=== PATIENT | female | born 1935 | race Caucasian/White ===

== ENCOUNTER → 2017-07-05 | Outpatient (CLI) | payer MEDICARE ==
[~2017-07-05] MED LIST: AMLODIPINE BESYL5 MG PO; ANASTROZOLE1 MG PO; ASPIRIN EC81 MG PO; BIOTIN300 MCG; CARVEDILOL PO; CARVEDILOL12.5 MG PO; CATAPRES-TTS 21 EACH TOP; CENTRUM MULTIV1 EACH PO; CENTRUM SPECIA1 EACH; CICLOPIROX MC; CLOBETASOL PROP60 GM TP; CLONIDINE HCL0.1 MG PO; ECOTRIN325 MG; FISH OIL 1,2001 EACH; FLUTICASONE PRO30 GM TP; HUMALOG 75100 UNITS/ SQ; HUMALOG MI100 UNIT/2 SC; HYDRALAZINE HCL25 MG PO; ICAP PO; ICAPS MV TABLE1 EACH PO; ISOSORBIDE DINI20 MG PO; LEVOTHYROXINE75 MCG PO; LOVASTATIN40 MG PO; MACROBID 100 M100 MG PO; METHYLDOPA500 MG PO; PREMARIN CREAM; SPIRONOLACTONE PO; SPIRONOLACTONE25 MG PO; TERAZOSIN HCL1 M1 PO; VESICARE5 MG PO; VITAMIN C500 M1 PO; VITAMIN D1000 UNI1 PO; VITAMIN D1000 UNIT PO; VITAMIN D2000 UNIT; VITAMIN E400 UNI4 PO; VITAMIN E400 UNIT PO; Z.0.ACEBUTOLOL HCL20 PO; Z.0.CLONIDINE HCL0.1 PO; Z.0.DIGOXIN125 MCG PO; Z.0.ECOTRIN325 MG PO; Z.0.LOVASTATIN40 MG PO; Z.0.SPIRONOLACTONE25 PO; Z.0.SYNTHROID125 MCG PO; [UNRECOGNIZED DRUG - OTHER] PO; [UNRECOGNIZED DRUG - OTHER] PO; [UNRECOGNIZED DRUG - OTHER] PO
--- NOTE | 2017-07-05 17:20 | Diagnostic Imaging Report ---
EXAM: Renal Ultrasound INDICATION: \[id number] \S\1536 \S\CHRONIC KIDNEY DZ, STAGE 3 COMPARISON: CT dated 10/14/2016 TECHNIQUE: Transverse and longitudinal images of the kidneys and bladder were obtained. FINDINGS: Right Kidney: Size: 13 cm Echogenicity: Normal Parenchymal thickness: Normal Collecting system: No hydronephrosis Stones: None Cyst/Mass: 4.2 x 3.4 x 4.7 cm inferior pole cyst. Left Kidney: Size: 7.9 cm Echogenicity: Increased Parenchymal thickness: Decreased, measuring 0.8 cm. Collecting system: No hydronephrosis Stones: None Cyst/Mass: Mid/superior pole 1.3 x 1.2 x 1.2 cm cyst. Bladder: Not distended, limiting evaluation. IMPRESSION: 4.7 cm inferior pole right renal cyst. Otherwise right kidney is unremarkable. Atrophic left kidney. Signed by: Dr. Jonathan Salazar MD on 07/05/2017 5:16 PM
== END ==
LOC: US 14:43
PROVIDERS: ATTEND Internal Medicine
DX: N18.3 Chronic kidney disease, stage 3 (moderate) (principal)
CPT/HCPCS: 76770

== ENCOUNTER 2017-10-04 10:55 | Inpatient (IN) | payer MEDICARE ==
[~2017-10-04] VITALS: Ht 165.1 cm; Wt 78.1 kg
--- OUTSIDE RECORDS SUMMARY | 2017-10-04 10:59 | XMS REPORT ---
Author Author [facility] Address Unknown Phone Unavailable Care Team Providers Care Beeswax Bleacher Name Role Phone JUSTIN SOLOMON Unavailable Unavailable MITZY DUGGAN Unavailable Unavailable Problems This patient has no known problems. Allergies, Adverse Reactions, Alerts This patient has no known allergies or adverse reactions. Medications This patient has no known medications. Results Test Description Test Time Test Comments Text Results Atomic Results Result Comments US RENAL RETROPERITONEAL COMP [place] [address] Patient Name: JEFFERY AGUILAR MR #: [id number] : 1935 Age/Sex: 82/F Req #: [id number] Adm Physician: Ordered by: JUSTIN SOLOMON MD Report #: [id number] Location: US Room/Bed: Procedure: [id number] US/US RENAL RETROPERITONEAL COMP Exam Date: 07/05/17 Exam Time: 1536 REPORT STATUS: Signed EXAM: Renal Ultrasound INDICATION: COMPARISON: CT dated 10/14/2016 TECHNIQUE: Transverse and longitudinal images of the kidneys and bladder were obtained. FINDINGS: Right Kidney: Size: 13 cm Echogenicity: Normal Parenchymal thickness: Normal Collecting system: No hydronephrosis Stones: None Cyst/Mass: 4.2 x 3.4 x 4.7 cm inferior pole cyst. Left Kidney: Size: 7.9 cm Echogenicity: Increased Parenchymal thickness: Decreased, measuring 0.8 cm. Collecting system: No hydronephrosis Stones: None Cyst/Mass: Mid/superior pole 1.3 x 1.2 x 1.2 cm cyst. Bladder: Not distended, limiting evaluation. IMPRESSION: 4.7 cm inferior pole right renal cyst. Otherwise right kidney is unremarkable. Atrophic left kidney. Signed by: Dr. Jonathan Cifuentes MD on 07/05/2017 5:16 PM Dictated By: JONATHAN CIFUENTES MD 15 Transcribed By: MARITZA on 07/05/171715 COPY TO: JUSTIN SOLOMON MD US BREAST COMPLETE RIGHT [place] [address] Patient Name: JEFFERY AGUILAR MR #: [id number] : 1935 Age/Sex: 81/F Req #: [id number] [facility] Physician: Ordered by: MITZY DUGGAN MD Report #: [id number] Location: MAMMO Room/Bed: Procedure: [id number] US/US BREAST COMPLETE RIGHT Exam Date: 03/25/17 Exam Time: 1433 REPORT STATUS: Signed # [id number] - USBRECOMRT ULTRASOUND OF THE RIGHT BREAST : 03/25/2017 Comparison is made to exams dated: 02/09/2014 ultrasound biopsy - [facility], 10/23/2013 ultrasound - [facility] and 03/25/2017 mammogram - [facility]. Color flow and real-time ultrasound were performed on the entire right breast with scanning in all four quadrants, retroareolar region and the right axilla. There are multiple benign appearing cysts at the 2 o'clock position approximately 4 cm from the nipple. The largest is complex and measures 5 x 5 x 10 mm. An adjacent cyst with debris has a maximal measurement of 6 mm. Several smaller cysts are present. IMPRESSION: BENIGN There is no sonographic evidence of malignancy. A 1 year screening mammogram is recommended. Lily Dejesus Jr., D.O. cw/:03/25/2017 18:10:10 Refrigerator Tester: GIOVANNY ACHARYA RT, [facility] letter sent: Normal Exam Ultrasound BI-RADS: 2 Benign Dictated By: LILY DEJESUS DO 09 Transcribed By: LESLEY on 03/25/171809 COPY TO: MITZY DUGGAN MD MAMMOGRAPHY DIGITAL DX BILAT [place] [address] Patient Name: JEFFERY AGUILAR MR #: [id number] : 1935 Age/Sex: 81/F Req #: [id number] Adm Physician: Ordered by: MITZY DUGGAN MD Report #: [id number] Location: MAMMO Room/Bed: Procedure: [id number] MG/MAMMOGRAPHY DIGITAL DX BILAT Exam Date: Exam Time: 1344 REPORT STATUS: Signed #[id number] - [id number] #BILATERAL DIGITAL DIAGNOSTIC MAMMOGRAM WITH CAD: 05/2017 Comparison is made to exams dated: 11/08/2015 mammogram, 02/09/2014 mammogram, 02/09/2014 ultrasound biopsy - [facility], 10/23/2013 mammogram, 10/23/2013 ultrasound - [facility] and specimen - [facility]. Current study contains 6 films. The tissue of both breasts is predominantly fatty. Current study was also evaluated with a Computer Aided Detection (CAD) system. There are benign calcifications in both breasts. There also are benign lymph nodes in both breasts. Additionally there are post operative findings in the right breast. Vascular calcification in the left breast. No significant masses, calcifications, or other findings are seen in either breast. There has been no significant interval change. IMPRESSION: BENIGN There is no mammographic evidence of malignancy. A 1 year screening mammogram is recommended. The patient will be notified by letter of the results. Lily Dejesus Jr., D.O. cw/:03/25/2017 18:04:19 Refrigerator Tester: Yanique VILLALOBOS(R)(M), [facility] letter sent: Compared to Prior B9 Mammogram BI-RADS: 2 Benign Dictated By: LILY DEJESUS DO 03 COPY TO: MITZY DUGGAN MD
[2017-10-04] MEDS ORDERED: SODIUM CHLORIDE 0.9% 1000ML 1,000 ML IV STA (11:47)
[2017-10-04] MEDS ORDERED: METOCLOPRAMIDE HCL 10 MG/2ML VIAL IV ONE (12:00)
[2017-10-04 12:05] LABS: BASOPHILS # (AUTO) 0.1 (0.0-0.1); BASOPHILS % 0.3 % (0.0-1.0); HEMATOCRIT 42.6 % (34.2-44.1); HEMOGLOBIN 15.3 g/dL (12.0-16.0); LYMPHOCYTES # (AUTO) 3.3 (1.0-3.2); LYMPHOCYTES % 16.9 % (18.0-39.1); MEAN CORPUSCULAR HEMOGLOBIN 28.9 pg (28-32); MEAN CORPUSCULAR HGB CONC 35.9 g/dL (31-35); MEAN CORPUSCULAR VOLUME 80.4 fL (81-99); MONOCYTES % 5.1 % (4.4-11.3); NEUTROPHILS # (AUTO) 15.1 (2.1-6.9); NEUTROPHILS % 77.2 % (38.7-80.0); PLATELET COUNT 410 x10e3/uL (140-360); RED CELL DISTRIBUTION WIDTH 13.8 % (11.7-14.4)
[2017-10-04 12:17] LABS: INR 1.18; PROTHROMBIN TIME 14.1 seconds (11.9-14.5)
[2017-10-04 12:18] LABS: PARTIAL THROMBOPLASTIN TIME 28.1 seconds (23.8-35.5)
[2017-10-04] MEDS ORDERED: HYDROMORPHONE 1MG/1ML INJ IV STA (12:22)
[2017-10-04 12:25] LABS: ALANINE AMINOTRANSFERASE 11 IU/L (0-55); ALBUMIN 3.4 g/dL (3.5-5.0); ALBUMIN/GLOBULIN RATIO 0.9 (0.8-2.0); ALKALINE PHOSPHATASE 101 IU/L (40-150); ANION GAP 20.3 mmol/L (8-16); BLOOD UREA NITROGEN 15 mg/dL (7-26); BUN/CREATININE RATIO 17 (6-25); CALCIUM 9.5 mg/dL (8.4-10.2); CARBON DIOXIDE 21 mmol/L (22-29); CHLORIDE 95 mmol/L (98-107); CREATINE KINASE 30 IU/L (29-168); CREATININE, SERUM 0.88 mg/dL (0.57-1.11); EST GLOMERULAR FILTRATION RATE > 60 ML/MIN (60-); GLUCOSE 199 mg/dL (74-118); LIPASE 12 U/L (8-78); POTASSIUM 4.3 mmol/L (3.5-5.1); SODIUM 132 mmol/L (136-145)
[2017-10-04] MEDS ORDERED: HYDRALAZINE HCL 20 MG/ML VIAL IV STA ×2 (12:33→15:51)
[2017-10-04] MEDS ORDERED: SODIUM CHLORIDE 0.9% 50ML 50 ML ONE (13:26)
[2017-10-04] MEDS ORDERED: IOPAMIDOL 370 MG/ML 200 ML INFUS..BTL INJ ONE (13:27)
--- NOTE | 2017-10-04 13:31 | Diagnostic Imaging Report ---
PROCEDURE: CT ABDOMEN AND PELVIS WITH CONTRAST TECHNIQUE: The abdomen and pelvis were scanned utilizing a multidetector helical scanner from the diaphragm to the lesser trochanter after the IV administration of 100 cc Isovue-370. Coronal and sagittal multiplanar reformations were obtained. COMPARISON: CT abdomen and pelvis without contrast 10/14/2016. INDICATIONS: RIGHT LOWER QUADRANT ABDOMINAL PAIN FINDINGS: LOWER THORAX: Unchanged linear scar and reticulation in the lung bases right greater than left.. HEPATOBILIARY: Subcentimeter hypoattenuating foci in hepatic segments 2 and 7, too small to further characterize but likely represent small cysts. Small radiopaque stones versus sludge in the dependent portion of the gallbladder, unchanged. No gallbladder wall thickening or pericholecystic inflammation. SPLEEN: Subcentimeter hypoattenuating lesion in the upper pole of the spleen is unchanged and remains too small to further characterize but likely represents a small cyst. PANCREAS: No focal masses or ductal dilatation. ADRENALS: No adrenal nodules. KIDNEYS/URETERS: The left kidney is atrophic. 4.8 cm simple cyst projects exophytically from the right lower pole, unchanged. No additional renal mass lesion. No hydronephrosis. No calculus. PELVIC ORGANS/BLADDER: The urinary bladder is incompletely distended but otherwise unremarkable. Uterus is not identified and has presumably been removed. No adnexal mass. PERITONEUM / RETROPERITONEUM: No ascites. No pneumoperitoneum. LYMPH NODES: No pelvic sidewall, retroperitoneal, or mesenteric lymphadenopathy. VESSELS: Extensive atherosclerotic calcification of the abdominal aorta, branch vessel origins, and iliac arterial systems. No aneurysmal dilatation. Left and right renal artery stents. GI TRACT: The large bowel is largely collapsed and shows no evidence of distention or wall thickening. There are a few sigmoid diverticula without adjacent inflammatory change. The appendix is not identified and has presumably been removed. Small sliding hiatal hernia. No small bowel dilatation to suggest obstruction. BONES AND SOFT TISSUES: Postsurgical changes of the anterior abdominal wall. Dystrophic soft tissue calcification in the subcutaneous fat of the right flank. No destructive osseous lesions. Multilevel degenerative disc changes and degenerative facet arthropathy of the lumbar spine. IMPRESSION: No acute intra-abdominal or pelvic CT abnormalities. Cholelithiasis without CT findings of acute cholecystitis. Sigmoid diverticulosis without evidence of diverticulitis. Atrophic left kidney. Atherosclerotic vascular disease. Dictated by: Jesus Watson M.D. on 10/04/2017 at 13:31 Electronically approved by: Jesus Watson M.D. on 10/04/2017 at 13:31
[2017-10-04] MEDS ORDERED: SODIUM CHLORIDE 0.9% 1000ML 1,000 ML IV SCH (13:52)
[2017-10-04] MEDS ORDERED: DEXTROSE 50% SYRINGE 50 ML IV PRN (14:00)
[2017-10-04] MEDS ORDERED: FAMOTIDINE 20 MG TAB PO ONE (14:00)
[2017-10-04] MEDS ORDERED: CEFTRIAXONE SOD 1 GM VIAL IM ONE (14:00)
[2017-10-04 14:17] LABS: BILIRUBIN,URINE NEGATIVE (NEGATIVE); KETONES,URINE 2+ (NEGATIVE); LEUKOCYTE ESTERASE ,URINE TRACE (NEGATIVE); NITRITE,URINE NEGATIVE (NEGATIVE); PROTEIN,URINE DIPSTICK 3+ (NEGATIVE); URINE UROBILINOGEN 0.2 mg/dL (0.2 - 1)
[2017-10-04 14:21] LABS: CLARITY,URINE SL CLOUDY (CLEAR); COLOR,URINE YELLOW (YELLOW)
[2017-10-04 14:37] LABS: BACTERIA,URINE RARE /HPF; EPITHELIAL CELLS,URINE FEW /LPF; RBC,URINE 0-5 /HPF (0-5)
--- NOTE | 2017-10-04 15:10 | Diagnostic Imaging Report ---
PROCEDURE:US GALLBLADDER COMPARISON:CT 10/04/2017 INDICATIONS:ABDOMINAL PAIN FINDINGS: LIVER: Size:16.7 cm in the right midclavicular line, mildly enlarged Appearance:Normal echogenicity, smooth contour Mass:No focal masses. Probable subcentimeter cyst noted on CT are not visualized. GALLBLADDER: Stones/Sludge:Layering non-shadowing hyperechogenicity likely reflects sludge. Appearance:No wall thickening, pericholecystic fluid or hydrops. Sonographic Vasques's Sign:Negative BILE DUCTS: Intrahepatic Ducts:No dilation Extrahepatic Ducts:Common bile duct measures 0.2 cm, no dilatation. PANCREAS: Visualized portions of the neck and proximal body are normal. RIGHT KIDNEY: Size:11.7 cm in length Echogenicity:Normal Collecting System:No hydronephrosis Stone:None Cyst/Mass:Mid/inferior pole 3.3 x 3.9 x 4.9 cm simple cyst. . VESSELS: Aorta:Not visualized secondary to overlying bowel gas Inferior Vena Cava:Visualized portions are normal. Main Portal Vein:0.8 cm, normal size with hepatopetal flow. FREE FLUID: No ascites or pleural effusions. CONCLUSION: 1. Trace gallbladder sludge. No sonographic evidence of acute cholecystitis. 2. Right renal simple cyst. Dictated by: Demarco Huddleston M.D. on 10/04/2017 at 15:10 Electronically approved by: Demarco Huddleston M.D. on 10/04/2017 at 15:10
[2017-10-04] MEDS ORDERED: AMLODIPINE BESIL1 GM PO (15:33)
[2017-10-04] MEDS ORDERED: ASPIRIN81 MG (15:34)
[2017-10-04] MEDS ORDERED: HYDRALAZINE HCL 20 MG/ML VIAL ONE (15:50)
[2017-10-04] MEDS: CEFTRIAXONE SOD 1 GM VIAL IV SCH (16:17)
[2017-10-04] MEDS: INSULIN REGULAR, HUMAN 100 UNIT/1 ML 3ML VIAL SQ SCH ×3 (16:30→21:23)
[2017-10-04 17:00] VITALS: BP 228/89
[2017-10-04 17:28] VITALS: BP 228/89
[2017-10-04] MEDS: HYDRALAZINE HCL 20 MG/ML VIAL IV PRN (18:50)
[2017-10-04 20:35] VITALS: BP 191/79
[2017-10-04 21:05] LABS: CREATINE KINASE MB 1.4 ng/mL (0-5.0)
[2017-10-04 22:39] VITALS: BP 191/79
[2017-10-05] VITALS (10 sets, daily range): BP systolic 140–217; BP diastolic 60–84
[2017-10-05] MEDS: HYDRALAZINE HCL 20 MG/ML VIAL IV PRN ×2 (01:13→05:19)
[2017-10-05] MEDS: CEFTRIAXONE SOD 1 GM VIAL IV SCH ×2 (01:39→16:16)
[2017-10-05] MEDS: ACETAMINOPHEN 325 MG TAB PO PRN (06:36)
[2017-10-05] MEDS: INSULIN REGULAR, HUMAN 100 UNIT/1 ML 3ML VIAL SQ SCH ×4 (07:30→20:55)
[2017-10-05 08:04] LABS: BASOPHILS # (AUTO) 0.1 (0.0-0.1); BASOPHILS % 0.5 % (0.0-1.0); EOSINOPHILS % 0.1 % (0.0-6.0); HEMATOCRIT 37.1 % (34.2-44.1); HEMOGLOBIN 12.7 g/dL (12.0-16.0); LYMPHOCYTES # (AUTO) 2.9 (1.0-3.2); LYMPHOCYTES % 15.3 % (18.0-39.1); MEAN CORPUSCULAR HEMOGLOBIN 28.3 pg (28-32); MEAN CORPUSCULAR HGB CONC 34.2 g/dL (31-35); MEAN CORPUSCULAR VOLUME 82.6 fL (81-99); MONOCYTES # (AUTO) 1.3 (0.2-0.8); MONOCYTES % 7.2 % (4.4-11.3); NEUTROPHILS % 75.3 % (38.7-80.0); PLATELET COUNT 346 x10e3/uL (140-360); RED BLOOD COUNT 4.49 x10e6/uL (3.6-5.1); RED CELL DISTRIBUTION WIDTH 14.3 % (11.7-14.4)
[2017-10-05 08:20] LABS: ALANINE AMINOTRANSFERASE 8 IU/L (0-55); ALBUMIN 2.7 g/dL (3.5-5.0); ALKALINE PHOSPHATASE 89 IU/L (40-150); BLOOD UREA NITROGEN 16 mg/dL (7-26); BUN/CREATININE RATIO 19 (6-25); CALCIUM 8.5 mg/dL (8.4-10.2); CARBON DIOXIDE 23 mmol/L (22-29); CHLORIDE 96 mmol/L (98-107); CREATININE, SERUM 0.85 mg/dL (0.57-1.11); EST GLOMERULAR FILTRATION RATE > 60 ML/MIN (60-); GLUCOSE 166 mg/dL (74-118); LIPASE 18 U/L (8-78); SODIUM 130 mmol/L (136-145)
[2017-10-05 08:56] LABS: CREATINE KINASE MB 1.4 ng/mL (0-5.0)
[2017-10-05] MEDS ORDERED: CARVEDILOL 12.5 MG TAB PO SCH (09:00)
[2017-10-05] MEDS ORDERED: SPIRONOLACTONE 25 MG TAB PO SCH (09:00)
[2017-10-05 09:08] LABS: ANION GAP 14.2 mmol/L (8-16); POTASSIUM 3.2 mmol/L (3.5-5.1)
[2017-10-05] MEDS ORDERED: CLONIDINE HCL 0.2 MG/24 HR 1 EA PATCH TOP ONE (09:30)
[2017-10-05] MEDS: HYDRALAZINE HCL 25 MG TAB PO SCH ×3 (09:37→21:00)
[2017-10-05] MEDS: SPIRONOLACTONE 25 MG TAB PO SCH (09:37)
[2017-10-05] MEDS: ASPIRIN 81 MG CHEW TAB PO SCH (09:38)
[2017-10-05] MEDS: AMLODIPINE BESYLATE 10 MG TAB PO SCH (09:38)
[2017-10-05] MEDS: CLONIDINE HCL 0.1 MG TAB PO SCH ×3 (09:38→21:00)
[2017-10-05] MEDS: ISOSORBIDE DINITRATE 20 MG TAB PO SCH ×2 (09:38→18:29)
[2017-10-05] MEDS: NEBIVOLOL 10 MG TAB PO SCH (09:38)
[2017-10-05] MEDS: LEVOTHYROXINE SODIUM 125 MCG TAB PO SCH (09:39)
[2017-10-05] MEDS: CHOLECALCIFEROL 1,000 UNIT TAB PO SCH (09:39)
[2017-10-05] MEDS: VANCOMYCIN 1GM/NS 250 ML 250 ML IV SCH ×2 (10:32→22:37)
[2017-10-05] MEDS: VITAMIN E 400 UNIT CAP PO SCH (10:47)
[2017-10-05] MEDS: ANASTROZOLE 1 MG TAB PO SCH (10:48)
[2017-10-05] MEDS ORDERED: POTASSIUM CHLORIDE 20 MEQ TAB CR PO ONE (12:00)
[2017-10-05] MEDS: CARVEDILOL 12.5 MG TAB PO SCH ×2 (12:19→18:29)
[2017-10-05] MEDS: ONDANSETRON HCL INJ 2 MG/ML VIAL IV PRN (20:55)
[2017-10-05] MEDS: SIMVASTATIN 20 MG TAB PO SCH (21:00)
[2017-10-05] MEDS: HYDROMORPHONE 1MG/1ML INJ IV PRN (22:36)
[2017-10-06] VITALS (7 sets, daily range): BP systolic 149–208; BP diastolic 65–84
[2017-10-06] MEDS: CEFTRIAXONE SOD 1 GM VIAL IV SCH ×2 (02:50→14:37)
[2017-10-06] MEDS: LEVOTHYROXINE SODIUM 125 MCG TAB PO SCH (05:18)
[2017-10-06] MEDS: INSULIN REGULAR, HUMAN 100 UNIT/1 ML 3ML VIAL SQ SCH ×4 (07:30→20:54)
[2017-10-06] MEDS: CARVEDILOL 12.5 MG TAB PO SCH ×3 (08:00→17:07)
[2017-10-06] MEDS: SPIRONOLACTONE 25 MG TAB PO SCH (09:19)
[2017-10-06] MEDS: HYDRALAZINE HCL 25 MG TAB PO SCH ×3 (09:19→20:53)
[2017-10-06] MEDS: NEBIVOLOL 10 MG TAB PO SCH (09:19)
[2017-10-06] MEDS: ASPIRIN 81 MG CHEW TAB PO SCH (09:19)
[2017-10-06] MEDS: ANASTROZOLE 1 MG TAB PO SCH (09:19)
[2017-10-06] MEDS: CHOLECALCIFEROL 1,000 UNIT TAB PO SCH (09:20)
[2017-10-06] MEDS: VITAMIN E 400 UNIT CAP PO SCH (09:20)
[2017-10-06] MEDS: AMLODIPINE BESYLATE 10 MG TAB PO SCH (09:20)
[2017-10-06] MEDS: ISOSORBIDE DINITRATE 20 MG TAB PO SCH ×2 (09:20→17:07)
[2017-10-06] MEDS: VANCOMYCIN 1GM/NS 250 ML 250 ML IV SCH ×2 (10:23→20:53)
[2017-10-06] MEDS: SIMVASTATIN 20 MG TAB PO SCH (20:53)
[2017-10-06] MEDS: ONDANSETRON HCL INJ 2 MG/ML VIAL IV PRN (21:07)
[2017-10-06] MEDS: HYDROMORPHONE 1MG/1ML INJ IV PRN (21:07)
[2017-10-07] VITALS (7 sets, daily range): BP systolic 161–184; BP diastolic 67–77
[2017-10-07] MEDS: CEFTRIAXONE SOD 1 GM VIAL IV SCH ×2 (02:33→13:52)
[2017-10-07] MEDS: LEVOTHYROXINE SODIUM 125 MCG TAB PO SCH (06:00)
[2017-10-07] MEDS: INSULIN REGULAR, HUMAN 100 UNIT/1 ML 3ML VIAL SQ SCH ×4 (07:30→21:36)
[2017-10-07 07:52] LABS: BASOPHILS # (AUTO) 0.1 (0.0-0.1); BASOPHILS % 0.4 % (0.0-1.0); EOSINOPHILS # (AUTO) 0.1 (0.0-0.4); EOSINOPHILS % 0.5 % (0.0-6.0); HEMATOCRIT 34.8 % (34.2-44.1); HEMOGLOBIN 11.8 g/dL (12.0-16.0); LYMPHOCYTES # (AUTO) 1.9 (1.0-3.2); LYMPHOCYTES % 12.2 % (18.0-39.1); MEAN CORPUSCULAR HEMOGLOBIN 28.7 pg (28-32); MEAN CORPUSCULAR HGB CONC 33.9 g/dL (31-35); MEAN CORPUSCULAR VOLUME 84.7 fL (81-99); MONOCYTES # (AUTO) 0.8 (0.2-0.8); MONOCYTES % 5.3 % (4.4-11.3); NEUTROPHILS # (AUTO) 12.5 (2.1-6.9); NEUTROPHILS % 80.3 % (38.7-80.0); PLATELET COUNT 306 x10e3/uL (140-360); RED BLOOD COUNT 4.11 x10e6/uL (3.6-5.1)
[2017-10-07 08:28] LABS: ALANINE AMINOTRANSFERASE 7 IU/L (0-55); ALBUMIN 2.3 g/dL (3.5-5.0); ALBUMIN/GLOBULIN RATIO 0.9 (0.8-2.0); ALKALINE PHOSPHATASE 84 IU/L (40-150); ANION GAP 13.1 mmol/L (8-16); BLOOD UREA NITROGEN 13 mg/dL (7-26); BUN/CREATININE RATIO 15 (6-25); CALCIUM 8.3 mg/dL (8.4-10.2); CARBON DIOXIDE 21 mmol/L (22-29); CHLORIDE 99 mmol/L (98-107); CREATININE, SERUM 0.86 mg/dL (0.57-1.11); EST GLOMERULAR FILTRATION RATE > 60 ML/MIN (60-); GLUCOSE 223 mg/dL (74-118); POTASSIUM 4.1 mmol/L (3.5-5.1); SODIUM 129 mmol/L (136-145)
[2017-10-07] MEDS: CARVEDILOL 12.5 MG TAB PO SCH ×3 (08:53→18:00)
[2017-10-07] MEDS: NEBIVOLOL 10 MG TAB PO SCH (08:54)
[2017-10-07] MEDS: HYDRALAZINE HCL 25 MG TAB PO SCH ×3 (08:54→21:32)
[2017-10-07] MEDS: PANTOPRAZOLE 40 MG 10ML VIAL IV SCH ×2 (08:54→18:00)
[2017-10-07] MEDS: ISOSORBIDE DINITRATE 20 MG TAB PO SCH ×2 (08:54→18:01)
[2017-10-07] MEDS: ANASTROZOLE 1 MG TAB PO SCH (08:54)
[2017-10-07] MEDS: SPIRONOLACTONE 25 MG TAB PO SCH (08:54)
[2017-10-07] MEDS: AMLODIPINE BESYLATE 10 MG TAB PO SCH (08:55)
[2017-10-07] MEDS: VANCOMYCIN 1GM/NS 250 ML 250 ML IV SCH ×2 (08:55→21:32)
[2017-10-07] MEDS: ONDANSETRON HCL INJ 2 MG/ML VIAL IV PRN ×2 (09:00→13:52)
[2017-10-07] MEDS: VITAMIN E 400 UNIT CAP PO SCH (12:41)
[2017-10-07] MEDS: CHOLECALCIFEROL 1,000 UNIT TAB PO SCH (12:41)
[2017-10-07] MEDS ORDERED: BELLADONNA/OPIUM 60 MG SUPP PR ONE ×2 (14:52→15:35)
[2017-10-07] MEDS ORDERED: IOPAMIDOL 610MG/1ML 300 MG/ML VIAL IV ONE (14:52)
[2017-10-07] MEDS ORDERED: BACITRACIN ZINC 15 GM OINT ONE (15:18)
[2017-10-07] MEDS ORDERED: MUPIROCIN 2% OINT 22 GM TUBE ONE (15:18)
[2017-10-07] MEDS: ASPIRIN 81 MG CHEW TAB PO SCH (17:59)
[2017-10-07] MEDS ORDERED: FENTANYL CITRATE/PF 100MCG/2 ML INJ ONE (18:25)
[2017-10-07] MEDS ORDERED: SEVOFLURANE INHAL SOLN 250 ML PEN BTL ONE (18:30)
[2017-10-07] MEDS ORDERED: PROPOFOL IV EMULSION 10 MG/ML 20 ML VIAL ONE (18:30)
[2017-10-07] MEDS ORDERED: DEXAMETHASONE SOD PHOS INJ 4 MG/ML VIAL ONE (18:30)
[2017-10-07] MEDS ORDERED: LIDOCAINE HCL 2% LOCAL INJ 5 ML SDV VIAL INJ ONE (18:30)
[2017-10-07] MEDS ORDERED: ONDANSETRON HCL INJ 2 MG/ML VIAL ONE (18:30)
[2017-10-07] MEDS: SIMVASTATIN 20 MG TAB PO SCH (21:32)
--- NOTE | 2017-10-07 23:59 | Consultation ---
DATE OF CONSULTATION: October 07, 2017 Ms. Green is an 82-year-old, who presented to the hospital because of abdominal pain. According to her, it is mostly in the right lower quadrant area and patient, apparently, was having some nausea, vomiting, diarrhea. She was found to have UTI. The nausea, vomiting, and diarrhea are better. She also had leukocytosis. She had a CAT scan of the abdomen and pelvis and it showed diverticulosis without diverticulitis, also evidence of gallstones and she also had an ultrasound showed the gallbladder, which only shows trace sludge and simple renal cyst. Her other medical problems reveals history of hypertension, history of hypothyroidism, history of hypercholesterolemia. ALLERGIES: NONE. SOCIAL HISTORY: No alcohol use. FAMILY HISTORY: Noncontributory. REVIEW OF SYSTEMS: At this point, she denies any chest pain. No shortness of breath. Denies any dysphagia, odynophagia. Denies any dysuria, hematuria or any kind of syncopal episode. EXAM GENERAL: Patient is awake, alert, appears to be stable, not in any acute distress at this point. VITAL SIGNS: Afebrile currently. HEAD, EYES, EARS, NOSE, THROAT: Normocephalic, atraumatic. Sclerae anicteric. NECK: Supple. HEART: Sounds regular. LUNGS: Clear. ABDOMEN: Soft. There is mild right lower quadrant tenderness. No rebound, no masses. EXTREMITIES: No edema or clubbing. LABORATORY VALUES: As of today, WBC of 15.6, hemoglobin 11.8. BUN of 13, creatinine 0.86. Liver enzymes normal. IMPRESSIONS 1. Abdominal pain, nausea, vomiting, diarrhea. She is better. 2. Urinary tract infection. 3. Gallstones. I think this is incidental finding. RECOMMENDATIONS: Continue antibiotic at this point. Follow labs clinically. Patient will probably need to have colonoscopy as an outpatient unless if symptoms persists. Job#: [id number] CQ cc:JUSTIN SOLOMON MD
[2017-10-08] VITALS: BP 166/67
[2017-10-08] MEDS: ACETAMINOPHEN 325 MG TAB PO PRN (00:25)
[2017-10-08] MEDS: HYDRALAZINE HCL 20 MG/ML VIAL IV PRN (00:30)
[2017-10-08] MEDS: CEFTRIAXONE SOD 1 GM VIAL IV SCH ×2 (02:43→13:24)
[2017-10-08 04:00] VITALS: BP 143/60
[2017-10-08] MEDS: LEVOTHYROXINE SODIUM 125 MCG TAB PO SCH (06:01)
[2017-10-08 07:36] LABS: BASOPHILS % 0.2 % (0.0-1.0); HEMATOCRIT 36.2 % (34.2-44.1); HEMOGLOBIN 11.9 g/dL (12.0-16.0); LYMPHOCYTES % 7.4 % (18.0-39.1); MEAN CORPUSCULAR HEMOGLOBIN 28.8 pg (28-32); MEAN CORPUSCULAR HGB CONC 32.9 g/dL (31-35); MEAN CORPUSCULAR VOLUME 87.7 fL (81-99); MONOCYTES # (AUTO) 0.2 (0.2-0.8); MONOCYTES % 1.3 % (4.4-11.3); NEUTROPHILS # (AUTO) 11.6 (2.1-6.9); NEUTROPHILS % 89.5 % (38.7-80.0); PLATELET COUNT 303 x10e3/uL (140-360); RED BLOOD COUNT 4.13 x10e6/uL (3.6-5.1)
[2017-10-08 07:58] LABS: ANION GAP 15.6 mmol/L (8-16); CALCIUM 8.4 mg/dL (8.4-10.2); CREATININE, SERUM 0.99 mg/dL (0.57-1.11); POTASSIUM 4.6 mmol/L (3.5-5.1)
[2017-10-08 08:00] VITALS: BP 181/72
[2017-10-08] MEDS: PANTOPRAZOLE 40 MG 10ML VIAL IV SCH ×2 (08:13→18:08)
[2017-10-08] MEDS: CARVEDILOL 12.5 MG TAB PO SCH ×3 (08:13→18:08)
[2017-10-08] MEDS: SPIRONOLACTONE 25 MG TAB PO SCH (08:13)
[2017-10-08] MEDS: ANASTROZOLE 1 MG TAB PO SCH (08:14)
[2017-10-08] MEDS: CHOLECALCIFEROL 1,000 UNIT TAB PO SCH (08:14)
[2017-10-08] MEDS: ISOSORBIDE DINITRATE 20 MG TAB PO SCH ×2 (08:14→18:08)
[2017-10-08] MEDS: ASPIRIN 81 MG CHEW TAB PO SCH (08:14)
[2017-10-08] MEDS: HYDRALAZINE HCL 25 MG TAB PO SCH ×3 (08:14→22:13)
[2017-10-08] MEDS: NEBIVOLOL 10 MG TAB PO SCH (08:14)
[2017-10-08] MEDS: VITAMIN E 400 UNIT CAP PO SCH (08:14)
[2017-10-08] MEDS: AMLODIPINE BESYLATE 10 MG TAB PO SCH (08:14)
[2017-10-08] MEDS: INSULIN REGULAR, HUMAN 100 UNIT/1 ML 3ML VIAL SQ SCH ×4 (08:15→21:00)
[2017-10-08] MEDS: VANCOMYCIN 1GM/NS 250 ML 250 ML IV SCH ×2 (09:27→09:39)
[2017-10-08 12:00] VITALS: BP 166/67
[2017-10-08 16:00] VITALS: BP 174/71
[2017-10-08] MEDS: NEOMYCIN/POLYMYXIN/BACITRACIN 15 GM TUBE TOP SCH (18:08)
[2017-10-08 20:00] VITALS: BP 134/69
[2017-10-08] MEDS: SIMVASTATIN 20 MG TAB PO SCH (22:13)
[2017-10-08] MEDS: DEXTROSE 5%/0.45% SOD CHL 1,000 ML IV SCH (22:50)
[2017-10-09] VITALS (10 sets, daily range): BP systolic 127–202; BP diastolic 59–89
[2017-10-09] MEDS: CEFTRIAXONE SOD 1 GM VIAL IV SCH ×2 (02:03→14:48)
[2017-10-09] MEDS: HYDRALAZINE HCL 20 MG/ML VIAL IV PRN (04:09)
[2017-10-09] MEDS: LEVOTHYROXINE SODIUM 125 MCG TAB PO SCH (05:19)
[2017-10-09 07:12] LABS: BASOPHILS % 0.3 % (0.0-1.0); EOSINOPHILS % 0.1 % (0.0-6.0); HEMATOCRIT 33.7 % (34.2-44.1); LYMPHOCYTES # (AUTO) 1.5 (1.0-3.2); LYMPHOCYTES % 10.5 % (18.0-39.1); MEAN CORPUSCULAR HEMOGLOBIN 29.3 pg (28-32); MEAN CORPUSCULAR HGB CONC 35.6 g/dL (31-35); MEAN CORPUSCULAR VOLUME 82.4 fL (81-99); MONOCYTES # (AUTO) 0.8 (0.2-0.8); MONOCYTES % 5.9 % (4.4-11.3); NEUTROPHILS # (AUTO) 11.2 (2.1-6.9); PLATELET COUNT 322 x10e3/uL (140-360); RED BLOOD COUNT 4.09 x10e6/uL (3.6-5.1); RED CELL DISTRIBUTION WIDTH 13.9 % (11.7-14.4)
[2017-10-09] MEDS: INSULIN REGULAR, HUMAN 100 UNIT/1 ML 3ML VIAL SQ SCH ×4 (07:30→21:00)
[2017-10-09 07:37] LABS: ANION GAP 10.9 mmol/L (8-16); CALCIUM 8.1 mg/dL (8.4-10.2); CREATININE, SERUM 1.17 mg/dL (0.57-1.11); POTASSIUM 3.9 mmol/L (3.5-5.1); VANCOMYCIN,RANDOM 15.6 ug/mL
[2017-10-09] MEDS ORDERED: ONDANSETRON HCL INJ 2 MG/ML VIAL ONE (09:29)
[2017-10-09] MEDS: VANCOMYCIN 1GM/NS 250 ML 250 ML IV SCH ×2 (09:30→21:30)
[2017-10-09] MEDS: PANTOPRAZOLE 40 MG 10ML VIAL IV SCH ×2 (10:30→17:49)
[2017-10-09] MEDS: CARVEDILOL 12.5 MG TAB PO SCH ×3 (10:30→17:49)
[2017-10-09] MEDS: SPIRONOLACTONE 25 MG TAB PO SCH (10:30)
[2017-10-09] MEDS: NEBIVOLOL 10 MG TAB PO SCH (10:30)
[2017-10-09] MEDS: ANASTROZOLE 1 MG TAB PO SCH (10:30)
[2017-10-09] MEDS: HYDRALAZINE HCL 25 MG TAB PO SCH ×3 (10:30→21:00)
[2017-10-09] MEDS: ASPIRIN 81 MG CHEW TAB PO SCH (10:30)
[2017-10-09] MEDS: AMLODIPINE BESYLATE 10 MG TAB PO SCH (10:31)
[2017-10-09] MEDS: ISOSORBIDE DINITRATE 20 MG TAB PO SCH ×2 (10:31→17:49)
[2017-10-09] MEDS: CHOLECALCIFEROL 1,000 UNIT TAB PO SCH (10:37)
[2017-10-09] MEDS: VITAMIN E 400 UNIT CAP PO SCH (10:37)
[2017-10-09] MEDS: NEOMYCIN/POLYMYXIN/BACITRACIN 15 GM TUBE TOP SCH ×2 (10:37→17:03)
[2017-10-09 10:50] LABS: ANISOCYTOSIS SLIGHT; ELLIPTOCYTE, RBC MODERATE; HYPOCHROMASIA SLIGHT; LYMPHOCYTES % (MANUAL) 14 % (19-48); MONOCYTES % (MANUAL) 5 % (3.4-9.0); NEUTROPHILS % (MANUAL) 80 % (40-74); PLATELET ESTIMATE ADEQUATE; PLATELET MORPHOLOGY COMMENT NORMAL; POIKILOCYTOSIS SLIGHT; RBC MORPHOLOGY COMMENT NORMAL
[2017-10-09] MEDS: SUCRALFATE 1 GM TAB PO SCH ×3 (11:30→21:00)
[2017-10-09] MEDS: DEXTROSE 5%/0.45% SOD CHL 1,000 ML IV SCH (16:15)
[2017-10-09] MEDS ORDERED: MIDAZOLAM HCL 2 MG/2 ML VIAL ONE (17:53)
[2017-10-09] MEDS ORDERED: FENTANYL CITRATE/PF 100MCG/2 ML INJ ONE (17:53)
[2017-10-09] MEDS: SIMVASTATIN 40 MG TAB PO SCH (21:00)
[2017-10-10] VITALS (7 sets, daily range): BP systolic 119–175; BP diastolic 58–73
[2017-10-10] MEDS: CEFTRIAXONE SOD 1 GM VIAL IV SCH ×2 (02:30→14:39)
[2017-10-10] MEDS: PANTOPRAZOLE 40 MG 10ML VIAL IV SCH ×2 (04:08→17:28)
[2017-10-10] MEDS: LEVOTHYROXINE SODIUM 125 MCG TAB PO SCH (05:32)
[2017-10-10] MEDS: INSULIN REGULAR, HUMAN 100 UNIT/1 ML 3ML VIAL SQ SCH ×4 (07:30→20:25)
[2017-10-10] MEDS: SUCRALFATE 1 GM TAB PO SCH ×4 (07:45→20:24)
[2017-10-10] MEDS: CARVEDILOL 12.5 MG TAB PO SCH ×3 (08:48→17:28)
[2017-10-10] MEDS: HYDRALAZINE HCL 25 MG TAB PO SCH ×3 (09:18→20:24)
[2017-10-10] MEDS: ISOSORBIDE DINITRATE 20 MG TAB PO SCH ×2 (09:18→17:28)
[2017-10-10] MEDS: AMLODIPINE BESYLATE 10 MG TAB PO SCH (09:18)
[2017-10-10] MEDS: NEBIVOLOL 10 MG TAB PO SCH (09:18)
[2017-10-10] MEDS: ANASTROZOLE 1 MG TAB PO SCH (09:18)
[2017-10-10] MEDS: ASPIRIN 81 MG CHEW TAB PO SCH (09:18)
[2017-10-10] MEDS: CHOLECALCIFEROL 1,000 UNIT TAB PO SCH (09:18)
[2017-10-10] MEDS: SPIRONOLACTONE 25 MG TAB PO SCH (09:18)
[2017-10-10] MEDS: NEOMYCIN/POLYMYXIN/BACITRACIN 15 GM TUBE TOP SCH ×2 (09:19→17:29)
[2017-10-10] MEDS: VITAMIN E 400 UNIT CAP PO SCH (09:19)
[2017-10-10] MEDS: VANCOMYCIN 1GM/NS 250 ML 250 ML IV SCH ×2 (11:55→20:56)
[2017-10-10] MEDS: ACETAMINOPHEN 325 MG TAB PO PRN ×2 (14:46→20:56)
[2017-10-10] MEDS ORDERED: MORPHINE SULFATE 2 MG/ML SYR IV PRN (20:00)
[2017-10-10] MEDS: SIMVASTATIN 40 MG TAB PO SCH (20:24)
[2017-10-11] VITALS: BP 148/65
[2017-10-11] MEDS: CEFTRIAXONE SOD 1 GM VIAL IV SCH (01:59)
[2017-10-11 04:00] VITALS: BP 132/60
[2017-10-11] MEDS: ACETAMINOPHEN 325 MG TAB PO PRN (05:36)
[2017-10-11] MEDS: LEVOTHYROXINE SODIUM 125 MCG TAB PO SCH (05:36)
[2017-10-11] MEDS: INSULIN REGULAR, HUMAN 100 UNIT/1 ML 3ML VIAL SQ SCH (07:35)
[2017-10-11] MEDS: SUCRALFATE 1 GM TAB PO SCH (07:50)
[2017-10-11] MEDS: CARVEDILOL 12.5 MG TAB PO SCH (08:00)
[2017-10-11] MEDS: PANTOPRAZOLE 40 MG 10ML VIAL IV SCH (08:20)
[2017-10-11] MEDS: AMLODIPINE BESYLATE 10 MG TAB PO SCH (08:22)
[2017-10-11] MEDS: CHOLECALCIFEROL 1,000 UNIT TAB PO SCH (08:22)
[2017-10-11] MEDS: NEBIVOLOL 10 MG TAB PO SCH (08:22)
[2017-10-11] MEDS: ANASTROZOLE 1 MG TAB PO SCH (08:22)
[2017-10-11] MEDS: ISOSORBIDE DINITRATE 20 MG TAB PO SCH (08:22)
[2017-10-11] MEDS: HYDRALAZINE HCL 25 MG TAB PO SCH (08:22)
[2017-10-11] MEDS: VITAMIN E 400 UNIT CAP PO SCH (08:22)
[2017-10-11] MEDS: SPIRONOLACTONE 25 MG TAB PO SCH (08:22)
[2017-10-11] MEDS: ASPIRIN 81 MG CHEW TAB PO SCH (08:22)
[2017-10-11] MEDS: NEOMYCIN/POLYMYXIN/BACITRACIN 15 GM TUBE TOP SCH (08:23)
[2017-10-11 08:39] VITALS: BP 147/60
[2017-10-11] MEDS ORDERED: PANTOPRAZOLE SO40 MG PO (11:12)
[2017-10-11] MEDS ORDERED: CARAFATE1 GM/10 ML PO (11:13)
--- NOTE | 2017-11-14 02:09 | Operative Report ---
DATE OF PROCEDURE: October 07, 2017 PREOPERATIVE DIAGNOSES 1. Labial fusion. 2. Urinary tract infections. 3. Left renal atrophy. 4. Mixed-type urinary incontinence. POSTOPERATIVE DIAGNOSES 1. Labial fusion. 2. Urinary tract infections. 3. Left renal atrophy. 4. Mixed-type urinary incontinence. 5. Severely atrophic (senile) vaginitis. OPERATIONS PERFORMED 1. Lysis of severe labial fusion (separate procedure performed for the labial fusion). 2. Cystourethroscopy with bilateral ureteral catheterization and retrograde ureteropyelography (separate procedure performed for the urinary tract infections and atrophic left kidney). 3. Interpretation of retrograde ureteropyelography. 4. Pelvic examination under anesthesia. ANESTHESIA: General. COMPLICATIONS: None. CLINICAL SUMMARY: Yunior Green is an 82-year-old woman with the above preoperative diagnoses. She is brought for the above procedures. She is aware of the risks of bleeding, infection, injury to adjacent structures, need for additional procedures, and elected to proceed. OPERATIVE PROCEDURE IN DETAIL: Informed consent was verified. Yunior Green was properly identified, taken to the operating room, placed on the cystoscopy table in supine position. Anesthesia was uneventfully begun. The patient was then carefully and gently re-positioned in the dorsal lithotomy position with all pressure points well padded. Her genitalia were examined. The patient had severe labial fusion. The urethral meatus could not be visualized. There was a very tiny hole through which urine drips out. We carefully teased apart the adhesed vagina. We teased it apart utilizing both fingers as well as an instrument and this was eventually accomplished. Only minimal amount of bleeding was encountered. Pressure was held in place until the bleeding stopped. The patient then had a more thorough vaginal prep and she was draped in the usual sterile fashion. The 22.5-Montenegrin cystoscope sheath with the obturator in place was atraumatically inserted in patient's urethra and the bladder was drained. Panendoscopy of the urinary bladder revealed no suspicious mucosal lesions. No tumors, no stones, and no diverticula. Mild trabeculations were noted. Normally positioned and configured ureteral orifices were identified. An 8-Montenegrin catheter was used to cannulate each ureter and retrograde ureteropyelograms were performed. Interpretation of retrograde ureteropyelography: Contrast was instilled in retrograde fashion bilaterally. The left kidney was small. The right kidney was seen normal size. Both kidneys exhibited no hydronephrosis and no evidence of obstruction. Delicate calices were present throughout. The patient's bladder was drained. Cystoscope was withdrawn. Pelvic examination under anesthesia revealed severely atrophic vaginitis. No abnormal palpable pelvic masses could be appreciated. There was no evidence of continued bleeding from the lysis of the labial fusion. The patient was then uneventfully reversed from anesthesia and taken to the recovery room in stable condition. There were no complications of the procedure. She tolerated the procedure well. Plans will be to follow the patient up on a long-term basis. Job#: [id number] CF cc:JUSTIN SOLOMON MD
== END 2017-10-11 11:45 | disposition home or self-care (01) | DRG 854 ==
LOC: ER 10:55 → ERHOLD 14:24 → MED/SURG3 16:33
PROVIDERS: ADMIT Internal Medicine; ATTEND Internal Medicine
PROC: 0UN Female Reproductive System, Release (ICD-10-PCS; 2017-10-07)
PROC: 0T9B8ZZ Drainage of Bladder, Via Natural or Artificial Opening Endoscopic (ICD-10-PCS; 2017-10-07)
PROC: BT0B1ZZ Plain Radiography of Bladder and Urethra using Low Osmolar Contrast (ICD-10-PCS; 2017-10-07)
PROC: 0DB38ZX Excision of Lower Esophagus, Via Natural or Artificial Opening Endoscopic, Diagnostic (ICD-10-PCS; 2017-10-09)
PROC: 0DB68ZX Excision of Stomach, Via Natural or Artificial Opening Endoscopic, Diagnostic (ICD-10-PCS; principal; 2017-10-09 10:30)
DX: A41.9 Sepsis, unspecified organism (principal); N39.0 Urinary tract infection, site not specified; K25.3 Acute gastric ulcer without hemorrhage or perforation; N28.1 Cyst of kidney, acquired; I10 Essential (primary) hypertension; K80.80 Other cholelithiasis without obstruction; K57.90 Diverticulosis of intestine, part unspecified, without perforation or abscess without bleeding; E03.9 Hypothyroidism, unspecified; K21.0 Gastro-esophageal reflux disease with esophagitis; K44.9 Diaphragmatic hernia without obstruction or gangrene; R35.1 Nocturia; R32 Unspecified urinary incontinence; N95.2 Postmenopausal atrophic vaginitis; Z88.1 Allergy status to other antibiotic agents; Z88.0 Allergy status to penicillin; Z88.8 Allergy status to other drugs, medicaments and biological substances; Q52.5 Fusion of labia
CPT/HCPCS: 36415; 43239; 51700; 74177; 74420; 76705; 80048; 80053; 80202; 81001; 82550; 82553; 82948; 83605; 83690; 83735; 83880; 84484; 85025; 85610; 85730; 87040; 87071; 87086; 87205; 88305; 88312; 93005; 96361; 96367; 96372; 96376; 99284; J0360; J0696; J1100; J1170; J2001; J2250; J2405; J2765; J3370; J7030; Q9967

== ENCOUNTER → 2017-12-25 | Day surgery (SDC) | payer MEDICARE ==
[2017-12-20 10:33] LABS: BASOPHILS # (AUTO) 0.1 (0.0-0.1); BASOPHILS % 0.5 % (0.0-1.0); EOSINOPHILS # (AUTO) 0.1 (0.0-0.4); EOSINOPHILS % 0.4 % (0.0-6.0); HEMATOCRIT 43.6 % (34.2-44.1); HEMOGLOBIN 14.6 g/dL (12.0-16.0); LYMPHOCYTES # (AUTO) 3.7 (1.0-3.2); LYMPHOCYTES % 31.5 % (18.0-39.1); MEAN CORPUSCULAR HEMOGLOBIN 27.9 pg (28-32); MEAN CORPUSCULAR HGB CONC 33.5 g/dL (31-35); MEAN CORPUSCULAR VOLUME 83.2 fL (81-99); MONOCYTES # (AUTO) 0.8 (0.2-0.8); MONOCYTES % 6.9 % (4.4-11.3); NEUTROPHILS # (AUTO) 7.1 (2.1-6.9); NEUTROPHILS % 60.4 % (38.7-80.0); PLATELET COUNT 313 x10e3/uL (140-360); RED BLOOD COUNT 5.24 x10e6/uL (3.6-5.1); RED CELL DISTRIBUTION WIDTH 14.2 % (11.7-14.4)
[~2017-12-25] MED LIST changes: +AMLODIPINE BESIL1 GM PO; +ASPIRIN81 MG PO; +BIOTIN2500 MCG PO; +CARAFATE1 GM/10 ML PO; +FENTANYL CITRATE/PF 100MCG/2 ML INJ ONE; +MIDAZOLAM HCL 2 MG/2 ML VIAL ONE; +OXYBUTYNIN CHLOR5 MG PO; +PANTOPRAZOLE SO40 MG PO; +PROPOFOL IV EMULSION 10 MG/ML 20 ML VIAL ONE
== END | disposition home or self-care (01) ==
LOC: OR 09:18
PROVIDERS: ATTEND Internal Medicine Gastroenterology
DX: K22.10 Ulcer of esophagus without bleeding (principal); K29.50 Unspecified chronic gastritis without bleeding; K21.0 Gastro-esophageal reflux disease with esophagitis; K25.9 Gastric ulcer, unspecified as acute or chronic, without hemorrhage or perforation; K44.9 Diaphragmatic hernia without obstruction or gangrene; E66.3 Overweight; E11.9 Type 2 diabetes mellitus without complications; E03.9 Hypothyroidism, unspecified; I25.810 Atherosclerosis of coronary artery bypass graft(s) without angina pectoris; I11.0 Hypertensive heart disease with heart failure; I50.9 Heart failure, unspecified; Z88.1 Allergy status to other antibiotic agents; Z91.040 Latex allergy status; Z88.5 Allergy status to narcotic agent; Z88.0 Allergy status to penicillin; Z88.8 Allergy status to other drugs, medicaments and biological substances; Z91.048 Other nonmedicinal substance allergy status; Z01.812 Encounter for preprocedural laboratory examination; Z79.82 Long term (current) use of aspirin; Z79.4 Long term (current) use of insulin; Z68.28 Body mass index [BMI] 28.0-28.9, adult; Z85.3 Personal history of malignant neoplasm of breast; Z95.1 Presence of aortocoronary bypass graft; Z86.73 Personal history of transient ischemic attack (TIA), and cerebral infarction without residual deficits; Z95.5 Presence of coronary angioplasty implant and graft; Z92.3 Personal history of irradiation
CPT/HCPCS: 36415; 43239; 85025; 88305; 88312; J2250

== ENCOUNTER → 2018-07-02 | Day surgery (SDC) | payer MEDICARE ==
[~2018-07-02] MED LIST changes: -FENTANYL CITRATE/PF 100MCG/2 ML INJ ONE; +LIDOCAINE HCL 2% LOCAL INJ 5 ML SDV VIAL INJ ONE; -MIDAZOLAM HCL 2 MG/2 ML VIAL ONE; +SULFAMETHOXAZO1 EAC1 PO
[2018-07-02 11:13] LABS: BASOPHILS % 0.4 % (0.0-1.0); EOSINOPHILS % 0.3 % (0.0-6.0); HEMATOCRIT 43.5 % (34.2-44.1); HEMOGLOBIN 14.8 g/dL (12.0-16.0); LYMPHOCYTES # (AUTO) 2.4 (1.0-3.2); LYMPHOCYTES % 21.3 % (18.0-39.1); MEAN CORPUSCULAR VOLUME 85.1 fL (81-99); MONOCYTES # (AUTO) 0.7 (0.2-0.8); NEUTROPHILS # (AUTO) 7.9 (2.1-6.9); NEUTROPHILS % 71.5 % (38.7-80.0); PLATELET COUNT 319 x10e3/uL (140-360); RED BLOOD COUNT 5.11 x10e6/uL (3.6-5.1); RED CELL DISTRIBUTION WIDTH 13.1 % (11.7-14.4)
[2018-07-02 12:30] VITALS: BP 169/78
== END | disposition home or self-care (01) ==
LOC: OR 10:25
PROVIDERS: ATTEND Internal Medicine Gastroenterology
DX: Z12.11 Encounter for screening for malignant neoplasm of colon (principal); K29.00 Acute gastritis without bleeding; K21.9 Gastro-esophageal reflux disease without esophagitis; K44.9 Diaphragmatic hernia without obstruction or gangrene; K57.30 Diverticulosis of large intestine without perforation or abscess without bleeding; Z71.3 Dietary counseling and surveillance; K64.8 Other hemorrhoids; E66.3 Overweight; I69.30 Unspecified sequelae of cerebral infarction; I25.10 Atherosclerotic heart disease of native coronary artery without angina pectoris; E11.22 Type 2 diabetes mellitus with diabetic chronic kidney disease; I12.9 Hypertensive chronic kidney disease with stage 1 through stage 4 chronic kidney disease, or unspecified chronic kidney disease; N18.2 Chronic kidney disease, stage 2 (mild); E03.9 Hypothyroidism, unspecified; Z88.6 Allergy status to analgesic agent; Z88.1 Allergy status to other antibiotic agents; Z91.040 Latex allergy status; Z88.0 Allergy status to penicillin; Z88.8 Allergy status to other drugs, medicaments and biological substances; Z91.048 Other nonmedicinal substance allergy status; Z79.4 Long term (current) use of insulin; Z79.82 Long term (current) use of aspirin; Z68.26 Body mass index [BMI] 26.0-26.9, adult; Z95.1 Presence of aortocoronary bypass graft; Z95.5 Presence of coronary angioplasty implant and graft
CPT/HCPCS: 36415; 45378; 82948; 85025; 93005; J2001; J2704

== ENCOUNTER 2018-07-30 19:24 | Emergency (ER) | payer MEDICARE ==
[~2018-07-30] VITALS: Ht 165.1 cm; Wt 78.0 kg
[~2018-07-30 19:24] MED LIST changes: -LIDOCAINE HCL 2% LOCAL INJ 5 ML SDV VIAL INJ ONE; -PROPOFOL IV EMULSION 10 MG/ML 20 ML VIAL ONE
[2018-07-30] MEDS ORDERED: SODIUM CHLORIDE 0.9% 1000ML 1,000 ML IV STA (20:03)
[2018-07-30] MEDS ORDERED: PANTOPRAZOLE 40 MG 10ML VIAL IV ONE (20:30)
[2018-07-30 20:39] LABS: BASOPHILS # (AUTO) 0.1 (0.0-0.1); BASOPHILS % 0.3 % (0.0-1.0); EOSINOPHILS % 0.1 % (0.0-6.0); HEMATOCRIT 44.7 % (34.2-44.1); HEMOGLOBIN 15.3 g/dL (12.0-16.0); LYMPHOCYTES # (AUTO) 2.3 (1.0-3.2); LYMPHOCYTES % 13.6 % (18.0-39.1); MEAN CORPUSCULAR HEMOGLOBIN 28.7 pg (28-32); MEAN CORPUSCULAR HGB CONC 34.2 g/dL (31-35); MEAN CORPUSCULAR VOLUME 83.9 fL (81-99); MONOCYTES # (AUTO) 0.9 (0.2-0.8); MONOCYTES % 5.1 % (4.4-11.3); NEUTROPHILS # (AUTO) 13.5 (2.1-6.9); NEUTROPHILS % 79.9 % (38.7-80.0); PLATELET COUNT 328 x10e3/uL (140-360); RED BLOOD COUNT 5.33 x10e6/uL (3.6-5.1); RED CELL DISTRIBUTION WIDTH 13.9 % (11.7-14.4)
[2018-07-30 20:47] LABS: INR 0.98; PROTHROMBIN TIME 13.9 seconds (11.9-14.5)
[2018-07-30 20:48] LABS: PARTIAL THROMBOPLASTIN TIME 27.3 seconds (23.8-35.5)
[2018-07-30 20:55] LABS: ALBUMIN 3.1 g/dL (3.5-5.0); ALBUMIN/GLOBULIN RATIO 1.2 (0.8-2.0); ANION GAP 14.3 mmol/L (8-16); CALCIUM 9.4 mg/dL (8.4-10.2); CREATININE, SERUM 1.07 mg/dL (0.57-1.11); MAGNESIUM 1.7 MG/DL (1.3-2.1); POTASSIUM 4.3 mmol/L (3.5-5.1)
--- NOTE | 2018-07-30 21:04 | Diagnostic Imaging Report ---
Exam: KUB with PA chest. Clinical History: Diarrhea, abdominal cramps Comparison: None. DISCUSSION: Frontal view of the abdomen shows a nonobstructive bowel gas pattern with minimal amount of retained stool.There are no dilated, air-filled loops of bowel. No pneumoperitoneum. There are no abnormal calcifications. Mild to moderate bilateral hip degenerative changes. Degenerative changes in the lower lumbosacral spine. Aortic stent is identified. Lungs are grossly clear. No consolidation or effusion. Cardiomediastinal silhouette is normal. Pulmonary vasculature is normal. No acute bony abnormalities. IMPRESSION: 1. Nonobstructive bowel gas pattern. The staff physician below has personally reviewed this exam on the date of dictation. Signed by: Dr. Kaushik Grover M.D. on 07/30/2018 9:01 PM
[2018-07-30 21:15] LABS: THYROID STIMULATING HORMONE 0.134 uIU/mL (0.350-4.940)
[2018-07-30 22:14] LABS: CLARITY,URINE HAZY (CLEAR); COLOR,URINE YELLOW (YELLOW)
[2018-07-30 22:15] LABS: BACTERIA,URINE FEW /HPF; BILIRUBIN,URINE NEGATIVE (NEGATIVE); EPITHELIAL CELLS,URINE FEW /LPF; KETONES,URINE NEGATIVE (NEGATIVE); LEUKOCYTE ESTERASE ,URINE NEGATIVE (NEGATIVE); NITRITE,URINE NEGATIVE (NEGATIVE); PROTEIN,URINE DIPSTICK 1+ (NEGATIVE); RBC,URINE 0-5 /HPF (0-5); URINE UROBILINOGEN 0.2 mg/dL (0.2 - 1); WBC,URINE (MAN) 0-5 /HPF (0-5)
[2018-07-30 22:16] LABS: CALCIUM OXALATE CRYSTALS,UR FEW (FEW)
[2018-07-30] MEDS ORDERED: NIFEDIAC CC60 MG PO (22:16)
[2018-07-30] MEDS ORDERED: DIATRIZOATE MEGL/DIATRIZOA SOD 30 ML BTL PO ONE (22:22)
[2018-07-30] MEDS ORDERED: HYDRALAZINE HCL 20 MG/ML VIAL IV ONE (22:30)
--- NOTE | 2018-07-30 23:58 | Diagnostic Imaging Report ---
EXAM: CT ABDOMEN AND PELVIS without IV CONTRAST INDICATION: Right-sided abdominal pain COMPARISON: CT of the abdomen and pelvis October 04, 2017 TECHNIQUE: The abdomen and pelvis were scanned using a multidetector helical scanner. Coronal and sagittal reformations were obtained. Dose modulation, iterative reconstruction, and/or weight based adjustment of the mA/kV was utilized to reduce the radiation dose to as low as reasonably achievable. Routine protocol performed. IV Contrast: None Oral Contrast: Gastrografin CTDIvol has been reviewed. It is below the limits set by the Radiation Protocol Committee (RPC). FINDINGS: LOWER THORAX: No consolidations LIVER: No masses BILIARY: Layering gallstones in an otherwise unremarkable gallbladder. No ductal dilation. SPLEEN: No masses PANCREAS: No masses ADRENALS: No nodules RIGHT KIDNEY: No nephroureterolithiasis or hydronephrosis. Simple cyst measuring 5.6 cm in the inferior pole. LEFT KIDNEY: Atrophic left kidney. Interval increase in size of the cyst to 2 cm, previously 1.3 cm. GI TRACT: No wall thickening or obstruction. Small hiatal hernia. VESSELS: Marked atherosclerotic changes of the abdominal aorta without aneurysm. PERITONEUM/RETROPERITONEUM: No free air or fluid LYMPH NODES: No lymphadenopathy REPRODUCTIVE ORGANS: The uterus and right ovary are not visualized. BLADDER: Normal SOFT TISSUES: Stable left lateral chest/abdominal wall lipoma measuring 12 x 10 cm. Stable right hip 3 cm lipoma. BONES: Advanced degenerative changes of the lumbar spine. IMPRESSION: No acute findings. No inflammatory changes of the colon. Signed by: Dr. Marixa Gutierrez M.D. on 07/30/2018 11:54 PM
[2018-07-31] MEDS ORDERED: LEVSIN0.125 MG SL (00:09)
[2018-07-31 00:13] VITALS: BP 178/85
== END 2018-07-31 00:20 | disposition home or self-care (01) ==
LOC: ER 19:24
DX: R19.7 Diarrhea, unspecified (principal); R10.31 Right lower quadrant pain; I10 Essential (primary) hypertension; E11.9 Type 2 diabetes mellitus without complications; I51.9 Heart disease, unspecified; E78.5 Hyperlipidemia, unspecified; G20 Parkinson's disease; Z85.3 Personal history of malignant neoplasm of breast
CPT/HCPCS: 36415; 74022; 74176; 80053; 81001; 83735; 84443; 85025; 85610; 85730; 87086; 99284; J0360; J7030

== ENCOUNTER 2018-12-12 11:14 | Emergency (ER) | payer MEDICARE ==
[~2018-12-12] VITALS: Ht 165.1 cm; Wt 78.0 kg
[~2018-12-12 11:14] MED LIST changes: +LEVSIN0.125 MG SL; +NIFEDIAC CC60 MG PO
[2018-12-12 12:35] VITALS: BP 248/79
[2018-12-12 13:32] LABS: BASOPHILS # (AUTO) 0.1 (0.0-0.1); BASOPHILS % 0.5 % (0.0-1.0); EOSINOPHILS % 0.3 % (0.0-6.0); HEMATOCRIT 41.7 % (34.2-44.1); HEMOGLOBIN 14.1 g/dL (12.0-16.0); LYMPHOCYTES # (AUTO) 3.3 (1.0-3.2); LYMPHOCYTES % 25.4 % (18.0-39.1); MEAN CORPUSCULAR HEMOGLOBIN 29.1 pg (28-32); MEAN CORPUSCULAR HGB CONC 33.8 g/dL (31-35); MONOCYTES # (AUTO) 0.9 (0.2-0.8); MONOCYTES % 6.7 % (4.4-11.3); NEUTROPHILS # (AUTO) 8.7 (2.1-6.9); NEUTROPHILS % 66.6 % (38.7-80.0); PLATELET COUNT 321 x10e3/uL (140-360); RED BLOOD COUNT 4.85 x10e6/uL (3.6-5.1); RED CELL DISTRIBUTION WIDTH 13.4 % (11.7-14.4)
[2018-12-12 13:51] LABS: ALANINE AMINOTRANSFERASE 8 IU/L (0-55); ALBUMIN 3.3 g/dL (3.5-5.0); ALBUMIN/GLOBULIN RATIO 1.5 (0.8-2.0); ALKALINE PHOSPHATASE 75 IU/L (40-150); ANION GAP 12.1 mmol/L (8-16); BLOOD UREA NITROGEN 16 mg/dL (7-26); BUN/CREATININE RATIO 20 (6-25); CALCIUM 9.2 mg/dL (8.4-10.2); CARBON DIOXIDE 28 mmol/L (22-29); CHLORIDE 100 mmol/L (98-107); CREATINE KINASE 21 IU/L (29-168); CREATININE, SERUM 0.81 mg/dL (0.57-1.11); EST GLOMERULAR FILTRATION RATE > 60 ML/MIN (60-); GLUCOSE 122 mg/dL (74-118); POTASSIUM 4.1 mmol/L (3.5-5.1); SODIUM 136 mmol/L (136-145)
[2018-12-12 14:07] LABS: BILIRUBIN,URINE NEGATIVE (NEGATIVE); CLARITY,URINE SL CLOUDY (CLEAR); COLOR,URINE YELLOW (YELLOW); KETONES,URINE NEGATIVE (NEGATIVE); LEUKOCYTE ESTERASE ,URINE MODERATE (NEGATIVE); NITRITE,URINE NEGATIVE (NEGATIVE); PROTEIN,URINE DIPSTICK 2+ (NEGATIVE); URINE UROBILINOGEN 0.2 mg/dL (0.2 - 1)
--- NOTE | 2018-12-12 14:08 | Diagnostic Imaging Report ---
EXAMINATION: Head CT HISTORY: Vertigo, syncope, fall, trauma COMPARISON: Brain MRI report from 09/18/2016 TECHNIQUE: Multidetector axial images were obtained without contrast from the foramen magnum to the vertex . The images were reconstructed using brain and bone algorithms. Thin section brain images were reformatted into coronal and sagittal planes. Image quality: Motion/streaking artifact limits the evaluation of the skull base and posterior cranial fossa. Dose modulation, iterative reconstruction, and/or weight based adjustment of the mA/kV was utilized to reduce the radiation dose to as low as reasonably achievable. FINDINGS: Parenchyma: 1. Scattered limited hypodensities, most likely nonspecific chronic microvascular ischemic changes. 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 2. No mass or hemorrhage. No CT evidence of acute territorial vascular insult. Extra-axial spaces:No abnormal density. No extra-axial fluid collections Brain volume: Normal for age. Ventricles: No hydrocephalus or displacement. Arteries: No density suggestive of thrombus. Dural sinuses: No abnormal density. Extra-axial spaces: No abnormal density. Foramen magnum: No mass, Chiari malformation, or basilar invagination. Sella: No obvious mass. Paranasal/mastoid sinuses: Imaged portions unremarkable. Skull/Scalp: No lytic or blastic lesions. No fractures. IMPRESSION: 1. No acute post traumatic intracranial abnormalities, particularly no hemorrhage. 2. Mild chronic microvascular ischemic changes an small chronic lacunar infarcts as detailed above. Signed by: Dr. Radha Hunt M.D. on 12/12/2018 2:04 PM
[2018-12-12 14:30] LABS: BACTERIA,URINE MODERATE /HPF; EPITHELIAL CELLS,URINE MODERATE /LPF; RENAL EPITHELIAL CELLS,URINE FEW
[2018-12-12] MEDS ORDERED: MACROBID 100 M100 MG PO (14:38)
[2018-12-12] MEDS ORDERED: HYDRALAZINE HCL 20 MG/ML VIAL IV ONE (15:31)
[2018-12-12] MEDS ORDERED: CARAFATE1 GM/10 ML PO (15:38)
[2018-12-12] MEDS ORDERED: CARDURA2 MG PO (15:38)
[2018-12-12] MEDS ORDERED: PANTOPRAZOLE SO40 MG PO (15:38)
== END 2018-12-12 17:30 | disposition home or self-care (01) ==
LOC: ER 11:14
DX: R55 Syncope and collapse (principal); H81.13 Benign paroxysmal vertigo, bilateral; N30.90 Cystitis, unspecified without hematuria
CPT/HCPCS: 36415; 70450; 80053; 81001; 82550; 82553; 84484; 85025; 93005; 99284; J0360

== ENCOUNTER 2019-01-05 10:52 | Inpatient (IN) | payer MEDICARE ==
[~2019-01-05] VITALS: Ht 165.1 cm; Wt 60.4 kg
[~2019-01-05 10:52] MED LIST changes: +CARDURA2 MG PO
--- NOTE | 2019-01-05 10:56 | NUR ---
RECEIVED PT VIA EMS STRETCHER INTO ER #2. PT AA&OX4. STATES SHE IS HERE FOR HIGH BLOOD PRESSURE X 3 WEEKS AND CHRONIC PAIN RELATED TO A FALL 3 WEEKS AGO. C/O BACK AND LEFT SHOULDER PAIN. LARGE BRUISE NOTED ON LEFT SHOULDER. SON AT BEDSIDE
[2019-01-05] MEDS ORDERED: LABETALOL HCL 5 MG/ML 20ML VIAL IV STA (11:06)
[2019-01-05] MEDS ORDERED: KETOROLAC TROMETHAMINE 30 MG/ML VIAL IV STA (11:15)
[2019-01-05 11:56] LABS: BASOPHILS # (AUTO) 0.1 (0.0-0.1); BASOPHILS % 0.5 % (0.0-1.0); EOSINOPHILS % 0.2 % (0.0-6.0); HEMATOCRIT 41.3 % (34.2-44.1); HEMOGLOBIN 13.9 g/dL (12.0-16.0); LYMPHOCYTES # (AUTO) 3.4 (1.0-3.2); LYMPHOCYTES % 28.6 % (18.0-39.1); MEAN CORPUSCULAR HEMOGLOBIN 28.6 pg (28-32); MEAN CORPUSCULAR HGB CONC 33.7 g/dL (31-35); MONOCYTES # (AUTO) 0.7 (0.2-0.8); MONOCYTES % 5.8 % (4.4-11.3); NEUTROPHILS # (AUTO) 7.7 (2.1-6.9); NEUTROPHILS % 64.5 % (38.7-80.0); PLATELET COUNT 338 x10e3/uL (140-360); RED BLOOD COUNT 4.86 x10e6/uL (3.6-5.1); RED CELL DISTRIBUTION WIDTH 13.3 % (11.7-14.4)
--- NOTE | 2019-01-05 12:20 | NUR ---
PT WAS GONE TO X-RAY FOR ALMOST AN HOUR. WHEN SHE RETURNED I ASSISTED HER TO THE RESTROOM IN THE WHEELCHAIR AND OBTAINED A URINE SAMPLE. PT WAS PLACED BACK ON THE MONITOR AND PAIN AND BLOOD PRESSURE REASSESSED AFTER THE MEDS. NOTIFIED DR. ORNELAS THAT PT STATED PAIN SAME. SAID THE PAIN MED DIDN'T DO ANYTHING. ALSO NOTIFIED HIM THAT NO IMPROVEMENT IN BP. I TOLD HIM I WILL RECHECK IT IN 15 OR 20 MIN BECAUSE PT HAD JUST GOTTEN UP AND TO THE RESTROOM. SHE SAID SHE WAS WORN OUT. SONS REMAIN AT BEDSIDE.
[2019-01-05 12:35] LABS: ALANINE AMINOTRANSFERASE 10 IU/L (0-55); ALBUMIN 3.2 g/dL (3.5-5.0); ALBUMIN/GLOBULIN RATIO 1.2 (0.8-2.0); ALKALINE PHOSPHATASE 91 IU/L (40-150); ANION GAP 12.5 mmol/L (8-16); BLOOD UREA NITROGEN 14 mg/dL (7-26); BUN/CREATININE RATIO 17 (6-25); CALCIUM 9.2 mg/dL (8.4-10.2); CARBON DIOXIDE 29 mmol/L (22-29); CHLORIDE 98 mmol/L (98-107); CREATININE, SERUM 0.83 mg/dL (0.57-1.11); EST GLOMERULAR FILTRATION RATE > 60 ML/MIN (60-); GLUCOSE 155 mg/dL (74-118); POTASSIUM 3.5 mmol/L (3.5-5.1); SODIUM 136 mmol/L (136-145)
[2019-01-05 12:55] LABS: THYROID STIMULATING HORMONE 0.017 uIU/mL (0.350-4.940)
[2019-01-05 13:14] LABS: BILIRUBIN,URINE NEGATIVE (NEGATIVE); CLARITY,URINE SL CLOUDY (CLEAR); COLOR,URINE YELLOW (YELLOW); KETONES,URINE NEGATIVE (NEGATIVE); LEUKOCYTE ESTERASE ,URINE NEGATIVE (NEGATIVE); NITRITE,URINE NEGATIVE (NEGATIVE); PROTEIN,URINE DIPSTICK 1+ (NEGATIVE); URINE UROBILINOGEN 0.2 mg/dL (0.2 - 1)
[2019-01-05 13:38] LABS: EPITHELIAL CELLS,URINE FEW /LPF; WBC,URINE (MAN) 0-5 /HPF (0-5)
--- NOTE | 2019-01-05 13:50 | Diagnostic Imaging Report ---
Radiographs of the thoracic spine - 3 views HISTORY: Pain. Fall COMPARISON: None available. FINDINGS: Bones: No acute displaced fracture. Osseous alignment is within normal limits. Joints: Scattered degenerative change. No osseous erosion. Soft tissues: Scattered vascular calcification. Sternal wires. IMPRESSION: Scattered degenerative change. No osseous erosion Signed by: Dr. Kris Vega M.D. on 01/05/2019 1:47 PM
--- NOTE | 2019-01-05 13:51 | Diagnostic Imaging Report ---
Radiographs of the left shoulder - 2 views HISTORY: Pain COMPARISON: None available. FINDINGS: Bones: No acute displaced fracture. Osseous alignment is within normal limits. Joints: Scattered degenerative change. No osseous erosion Soft tissues: The soft tissues appear unremarkable. IMPRESSION: Scattered degenerative change. No osseous erosion Signed by: Dr. Kris Vega M.D. on 01/05/2019 1:47 PM
--- NOTE | 2019-01-05 13:52 | Diagnostic Imaging Report ---
EXAMINATION: CHEST 2 VIEWS INDICATION: Pain. ^Chest pain, back pain , evaluate Aorta for widenning ^[id number] ^1140 COMPARISON: August 01, 2018 FINDINGS: TUBES and LINES: Sternal wires. LUNGS: Lungs are well inflated. Lungs are clear. There is no evidence of pneumonia or pulmonary edema. PLEURA: No pleural effusion or pneumothorax. HEART AND MEDIASTINUM: The cardiomediastinal silhouette is unremarkable. BONES AND SOFT TISSUES: No acute osseous lesion. Soft tissues are unremarkable. UPPER ABDOMEN: No free air under the diaphragm. IMPRESSION: No acute thoracic abnormality. Signed by: Dr. Kris Vega M.D. on 01/05/2019 1:49 PM
[2019-01-05] MEDS ORDERED: ONDANSETRON HCL INJ 2MG/ML 2ML 2 MG/ML VIAL IV PRN (14:15)
[2019-01-05] MEDS: LIDOCAINE 5% PATCH TP SCH (14:50)
--- NOTE | 2019-01-05 14:53 | NUR ---
PT IS BEING ADMITTED TO DR. SOLOMON. UPDATED PT AND FAMILY ABOUT ADMISSION AND ROOM ASSIGNMENT.
--- NOTE | 2019-01-05 14:54 | NUR ---
REPORT CALLED TO AKUA
--- NOTE | 2019-01-05 15:35 | NUR ---
MED LINE LEAD PICKED UP PT TO TRANSPORT HER TO HER ROOM
[2019-01-05 15:50] VITALS: BP 197/87
--- NOTE | 2019-01-05 15:50 | NUR ---
PATIENT ARRIVED FROM ER TO ROOM 284 IN STABLE CONDITION. SONS AT BEDSIDE. PATIENT STATES PAIN IS AT A TOLERABLE LEVEL AT THIS TIME. ADMISSION HISTORY AND INITIAL PHYSICAL ASSESSMENT COMPLETED AND DOCUMENTED. PATIENT ORIENTED TO ROOM AND POLICIES. CALL LIGHT WITHIN REACH. BED IN THE LOWEST POSITION.
[2019-01-05] MEDS ORDERED: VITAMIN E400 UNIT PO (16:10)
[2019-01-05] MEDS ORDERED: CENTRUM HEART PO (16:10)
[2019-01-05] MEDS ORDERED: VITAMIN D1000 UNI1 PO (16:10)
[2019-01-05] MEDS ORDERED: BIOTIN2500 MCG PO (16:10)
[2019-01-05] MEDS ORDERED: VITAMIN B-12 IM (16:13)
[2019-01-05] MEDS ORDERED: DEXTROSE 50% SYRINGE 50 ML IV PRN (16:15)
[2019-01-05 16:19] VITALS: BP 197/87
[2019-01-05] MEDS: INSULIN REGULAR, HUMAN 100 UNIT/1 ML 3ML VIAL SQ SCH ×2 (16:29→20:36)
[2019-01-05] MEDS: LABETALOL HCL 5 MG/ML 20ML VIAL IV PRN ×2 (16:39→20:42)
--- NOTE | 2019-01-05 19:15 | NUR ---
REPORT GIVEN TO ONCOMING NURSE, WALKING ROUNDS DONE. PATIENT IS RESTING IN BED. NO ACUTE DISTRESS NOTED. NO S/S OF PAIN NOTED. CALL LIGHT WITHIN REACH. BED IN THE LOWEST POSITION.
[2019-01-05 19:18] VITALS: BP 183/76
--- NOTE | 2019-01-05 19:18 | NUR ---
PT IS RESTING IN BED. RESPIRATION IS EVEN AND UNLABORED, NO DISTRESS NOTED. BED IN THE LOWEST POSITION, LOCKED, BED ALARM ON, AND CALL LIGHT WITHIN REACH. WILL CONTINUE TO MONITOR.
[2019-01-05 20:00] VITALS: BP 183/76
[2019-01-06] VITALS (13 sets, daily range): BP systolic 123–216; BP diastolic 53–108
[2019-01-06] MEDS: TRAMADOL HCL 50 MG TAB PO PRN ×3 (00:26→21:04)
[2019-01-06] MEDS: LABETALOL HCL 5 MG/ML 20ML VIAL IV PRN ×3 (00:58→20:57)
[2019-01-06] MEDS ORDERED: HYOSCYAMINE 0.125 MG TAB SL PRN (04:30)
[2019-01-06] MEDS: LEVOTHYROXINE SODIUM 75 MCG TAB PO SCH (05:43)
[2019-01-06 05:45] LABS: MAGNESIUM 1.6 MG/DL (1.3-2.1); PHOSPHORUS 4.8 MG/DL (2.3-4.7)
--- NOTE | 2019-01-06 06:58 | NUR ---
RECEIVED PATIENT RESTING IN BED. NO ACUTE DISTRESS NOTED. NO S/S OF PAIN NOTED. CALL LIGHT WITHIN REACH. BED IN THE LOWEST POSITION. BED ALARM ON.
[2019-01-06] MEDS: INSULIN REGULAR, HUMAN 100 UNIT/1 ML 3ML VIAL SQ SCH ×4 (08:20→20:58)
[2019-01-06] MEDS: CARVEDILOL 12.5 MG TAB PO SCH ×2 (08:21→16:23)
[2019-01-06] MEDS: SPIRONOLACTONE 25 MG TAB PO SCH (08:21)
[2019-01-06] MEDS: LIDOCAINE 5% PATCH TP SCH (08:21)
[2019-01-06] MEDS: PANTOPRAZOLE SOD 40 MG TABEC PO SCH (08:21)
[2019-01-06] MEDS: CHOLECALCIFEROL 1,000 UNIT TAB PO SCH (08:21)
[2019-01-06] MEDS: SUCRALFATE 1 GM/10 ML SUSP PO SCH ×4 (08:21→20:56)
[2019-01-06] MEDS: NITROFURANTOIN MACROCRYSTALS 100 MG CAP PO SCH ×2 (08:21→16:23)
[2019-01-06] MEDS ORDERED: DOXAZOSIN MESYLATE 2 MG TAB PO SCH (09:00)
--- NOTE | 2019-01-06 11:40 | NUR ---
Visit made by the Spiritual Care Department Pastoral Visitor, Laura Denney. PV provided pastoral presence, hospitality, and supportive listening. Pastoral Visitor informed pt/family of the scope of Chief Of Internal Medicine Services and availability. CARLA LEON Assistant Boiler Operator Spiritual Care Department O: [phone] Pager: [phone] ([phone] number calling from)
--- NOTE | 2019-01-06 14:51 | NUR ---
DISCUSSED IN BARRIER ROUNDS, PT LIVES IN APARTMENT BY SELF, ON TRAMADOL FOR PAIN, BHALA CONSULT HIGH BPS, HAS PAIN IN LEFT SHOULDER.
--- NOTE | 2019-01-06 17:08 | NUR ---
Nutrition Intervention Note RD Recommendation(s) for Physician: The patient meets criteria for unspecified SEVERE protein-calorie malnutrition. -Rec adding ADA 1800 to cardiac diet due to hx of DM -Rec Glucerna BID to increase protein-calorie intake -RD discussed menu options and obtained diet preferences Plan of Care: RD following, monitoring for tolerance and adequacy, ONS rec Nutrition reason for involvement: Nutrition Risk Trigger MST RD Assessment 01/06 83yo F, who is admitted from home for hypertensive urgency. Visited pt in the room. Pt reports good appetite with ~100% meal intake since admission. No complains of nausea or vomiting. Pt denies any chewing or swallowing difficulty. LBM 01/06. Pt has lost ~60+ lbs since last year due to gastric ulcers. Pt cannot tolerate any high acid or spicy foods. Pt has severe muscle/ fat loss upon NFPA (see below). Pt usually drinks 1 Gluc[address] shake [address] home. RD educated pt on low acid food options and how to incorporate more calories into her diet. Will continue to monitor and follow. Principal Problems/Diagnoses: hypertensive urgency PMH: hypertension, hypothyroidism, hypercholesterolemia, CKD II, gastric ulcers, DM GI: abdomen soft, flat, tender, flatus present Skin: no pressure wound noted Labs: (01/06) reviewed Meds: carafate, protonix, vitamin D3 Ht: 62in Wt: 117lb BMI: 19.5kg/m2 IBW: 110lb Malnutrition Evaluation (01/06/2019) The patient meets criteria for unspecified SEVERE protein-calorie malnutrition. Energy intake: <75% of estimated energy requirements for >3 months Weight loss: >20% in 1 year (Chronic) Fat loss: Severe apparent ribs, hollow look around orbital region Muscle loss: Severe depression of temporal and interrosseous, protrusion of clavicle Supporting Evidence: Fluid accumulation: none Functional Status: measurably reduced Nutrition Prescription (Diet Order): cardiac diet Estimated Nutritional Needs: Calories: 1590 1855kcal(30-35kcal/kg/d) Weight used: CBW Protein: 80 - 106 g(1.5-2g/kg/d) Weight used: CBW Diet Adequacy: Not meeting calorie needs, Not meeting protein needs Diet Education Needs Assessment: Diet education indicated and patient agreeable. low acid food options and how to incorporate more calories into diet Nutrition Care Level: mod Nutrition Diagnosis: Severe malnutrition related to inadequate oral intake as evidenced by <75% of estimated energy requirements for >3 months, >20% weight loss in 1 year (Chronic) as well as severe muscle/ fat loss. Goal: Patient will meet 75-100% of estimated needs by follow up Progress: Progressing Interventions: Modified diet, Commercial beverage, Survival information, Recommended Modifications Monitoring/Evaluation: Total energy intake, Total protein intake, Modified diet, Liquid supplement, and Weight change Signed: Eri Malik MS, RD, LD
--- NOTE | 2019-01-06 19:02 | NUR ---
REPORT GIVEN TO ONCOMING NURSE, WALKING ROUNDS DONE. PATIENT IS RESTING IN BED. NO CUTE DISTRESS NOTED. CALL LIGHT WITHIN REACH. BED IN THE LOWEST POSITION.
[2019-01-06] MEDS: SIMVASTATIN 20 MG TAB PO SCH (20:56)
[2019-01-07] VITALS (12 sets, daily range): BP systolic 108–220; BP diastolic 18–87
--- NOTE | 2019-01-07 00:40 | Consultation ---
DATE OF CONSULTATION: 01/06/2019 Cardiology Consultation REASON FOR CONSULTATION: Hypertensive urgency and syncope. HISTORY OF PRESENT ILLNESS: This is an 83-year-old woman with a history of hypertension, chronic abdominal pain, hyperlipidemia, and gastroesophageal reflux disease, who presented to the emergency department with elevated blood pressure and episodes of syncope. The patient reports that over the last few weeks to months, developed episodes of syncope, she reports falling while trying to go to the restroom, each episode prompted by sudden standing from a seated or supine position, associated with some head trauma, no palpitations, chest pain, or shortness of breath. Upon arrival here, she was profoundly hypertensive with systolic reading greater than 200. REVIEW OF SYSTEMS: A 12-point review of system was conducted, is negative otherwise as stated above in the HPI. PAST MEDICAL HISTORY: As stated above in the HPI. PAST SURGICAL HISTORY: None recent. PAST FAMILY HISTORY: No premature coronary artery disease or sudden cardiac . SOCIAL HISTORY: No illicit drug, alcohol, or tobacco use. ALLERGIES: PENICILLIN AND MORPHINE. MEDICATIONS: See medications reconciliation form. PHYSICAL EXAMINATION: VITAL SIGNS: Temperature is 96.9, heart rate is 61, respirations are 19, blood pressure is 184/77, and oxygen saturation is 99% on room air. GENERAL: She is a well-appearing, well-built, in no apparent distress. Alert and oriented x3. HEENT: Head is normocephalic and atraumatic. Eyes, the extraocular muscles are intact. Conjunctivae are clear. NECK: No JVD. No bruits. CARDIOVASCULAR: She has regular rate and rhythm. LUNGS: Clear to auscultation. ABDOMEN: Soft, nontender, and nondistended. EXTREMITIES: No clubbing, cyanosis, or edema. VASCULAR: 2+ pulses. SKIN: Warm, dry, and intact. NEUROLOGIC: No focal deficits noted. Cranial nerves grossly intact. PSYCHIATRIC: Normal mood and affect. LABORATORY DATA: Reviewed. Troponin is 0.005. TSH is 0.017. IMPRESSION: 1. Hypertensive urgency. 2. Syncope. 3. Hypertension. 4. Hyperlipidemia. 5. Recurrent falls. RECOMMENDATIONS: Continue to monitor closely on telemetry. Her 12-lead electrocardiogram showed normal sinus rhythm. We will check a 2D echocardiogram. No bruits are auscultated on physical examination. Please check orthostatic vital signs. If needed for better blood pressure control, we can start either calcium channel zarina or an NATALIE inhibitor. The patient may be orthostatic with Cardura. Thank you for the consultation. We will follow along with you. DO GERALDINE Contreras/SENG /[id number]
[2019-01-07] MEDS: LEVOTHYROXINE SODIUM 75 MCG TAB PO SCH (05:00)
[2019-01-07] MEDS: TRAMADOL HCL 50 MG TAB PO PRN (05:01)
[2019-01-07] MEDS: LABETALOL HCL 5 MG/ML 20ML VIAL IV PRN ×2 (05:01→09:25)
[2019-01-07 06:54] LABS: BILIRUBIN,URINE NEGATIVE (NEGATIVE); CLARITY,URINE CLEAR (CLEAR); COLOR,URINE YELLOW (YELLOW); KETONES,URINE NEGATIVE (NEGATIVE); LEUKOCYTE ESTERASE ,URINE NEGATIVE (NEGATIVE); NITRITE,URINE NEGATIVE (NEGATIVE); PROTEIN,URINE DIPSTICK NEGATIVE (NEGATIVE); URINE UROBILINOGEN 0.2 mg/dL (0.2 - 1)
--- NOTE | 2019-01-07 07:45 | NUR ---
Pt received in bed with eyes open. AOX4 and able to verbalize needs. Denies any pain at this time. Breaths are even and unlabored.
[2019-01-07] MEDS: SPIRONOLACTONE 25 MG TAB PO SCH (08:09)
[2019-01-07] MEDS: SUCRALFATE 1 GM/10 ML SUSP PO SCH ×4 (08:09→20:59)
[2019-01-07] MEDS: LIDOCAINE 5% PATCH TP SCH ×2 (08:10→09:00)
[2019-01-07] MEDS: CHOLECALCIFEROL 1,000 UNIT TAB PO SCH (08:10)
[2019-01-07] MEDS: PANTOPRAZOLE SOD 40 MG TABEC PO SCH (08:10)
[2019-01-07] MEDS: NITROFURANTOIN MACROCRYSTALS 100 MG CAP PO SCH ×2 (08:10→17:45)
[2019-01-07] MEDS: CARVEDILOL 12.5 MG TAB PO SCH ×2 (08:10→17:51)
[2019-01-07] MEDS: HYDROCODONE/APAP 10MG-325MG TAB PO PRN (08:11)
[2019-01-07] MEDS: INSULIN REGULAR, HUMAN 100 UNIT/1 ML 3ML VIAL SQ SCH ×4 (08:15→21:00)
[2019-01-07] MEDS: DICLOFENAC SOD 1% GEL 100 GM TUBE TP SCH ×4 (09:20→21:36)
[2019-01-07] MEDS ORDERED: LOSARTAN POTASSIUM 25 MG TAB PO SCH (10:00)
[2019-01-07] MEDS: LOSARTAN POTASSIUM 25 MG TAB PO SCH (11:18)
--- NOTE | 2019-01-07 16:00 | NUR ---
Pt blood pressure is still elevated 193/81 p-55. Pt only has labetalol as PRN medication. Notified Dr. Orourke-cardiology for new orders and received new orders for PRN hydralazine 10mg IV q4Hrs PRN SBP>160.
[2019-01-07] MEDS: HYDRALAZINE HCL 20 MG/ML VIAL IV PRN ×2 (16:25→23:49)
--- NOTE | 2019-01-07 19:39 | NUR ---
RECEIVED PT IN BED AOX3 .RESPIRATIONS ARE EVEN AND UNLABORED DENIES PAIN CALL LIGHT WITH IN REACH .CONTINUE TO MONITOR
[2019-01-07] MEDS: SIMVASTATIN 20 MG TAB PO SCH (20:59)
[2019-01-07] MEDS: ONDANSETRON HCL 4 MG ORAL DISINTEGRATING TAB PO PRN (22:00)
--- NOTE | 2019-01-07 23:05 | Progress Note ---
DATE: 01/07/2019 Cardiology Progress Note. SUBJECTIVE: The patient overall feeling better. Denies any chest pain or shortness of breath. OBJECTIVE: VITAL SIGNS: Temperature is 97.1, heart rate is 60, respirations are 18, blood pressure 193/81, oxygen saturation 100% on room air. GENERAL: She is an elderly woman, lying comfortably in bed. HEAD: Normocephalic, atraumatic. CARDIOVASCULAR: Regular rate and rhythm. LUNGS: Clear to auscultation. ABDOMEN: Soft, nontender, nondistended. EXTREMITIES: No edema. CARDIOVASCULAR MEDICATIONS: Reviewed. LABORATORY DATA: Reviewed. Telemetry monitoring revealed normal sinus rhythm. IMPRESSION: 1. Hypertensive urgency. 2. Orthostatic hypotension. 3. Syncope. 4. Hyperlipidemia. 5. Recurrent falls. RECOMMENDATIONS: The patient does elicit the drop in blood pressure with changes in her positioning. We will discontinue doxazosin and Aldactone. Start losartan for her supine hypertension. Her 2D echocardiogram showed normal left ventricular systolic function and normal valves. Continue close telemetry and hemodynamic monitoring. Neal Orourke DO BM/MODL /[id number]
[2019-01-08] VITALS (13 sets, daily range): BP systolic 103–226; BP diastolic 53–86
[2019-01-08] MEDS: HYDROCODONE/APAP 10MG-325MG TAB PO PRN ×3 (00:06→21:59)
--- NOTE | 2019-01-08 06:17 | NUR ---
PT RESTING .DENIES PAIN .CALL LIGHT WITH IN REACH CONTINUE TO MONITOR
[2019-01-08] MEDS: LEVOTHYROXINE SODIUM 75 MCG TAB PO SCH (06:30)
--- NOTE | 2019-01-08 06:58 | NUR ---
REPORT GIVEN TO THE ONCOMING NURSE
[2019-01-08] MEDS: INSULIN REGULAR, HUMAN 100 UNIT/1 ML 3ML VIAL SQ SCH ×4 (07:30→21:00)
--- NOTE | 2019-01-08 07:30 | NUR ---
Pt in bed. Complaining of nausea still. Pt is able to verabalize needs. Pt states she is very tired beacuse she didn't sleep well previous night.
[2019-01-08] MEDS: HYDRALAZINE HCL 20 MG/ML VIAL IV PRN (08:00)
[2019-01-08] MEDS: ONDANSETRON HCL INJ 2MG/ML 2ML 2 MG/ML VIAL IV PRN ×2 (08:00→13:36)
[2019-01-08] MEDS ORDERED: BISACODYL 5 MG TAB EC PO ONE (08:30)
[2019-01-08] MEDS ORDERED: DOCUSATE SODIUM 100 MG CAP PO NR (08:45)
[2019-01-08] MEDS: LIDOCAINE 5% PATCH TP SCH (09:00)
[2019-01-08] MEDS: SUCRALFATE 1 GM/10 ML SUSP PO SCH ×4 (09:48→21:44)
[2019-01-08] MEDS: CARVEDILOL 12.5 MG TAB PO SCH ×2 (09:54→17:17)
[2019-01-08] MEDS: LOSARTAN POTASSIUM 25 MG TAB PO SCH (09:54)
[2019-01-08] MEDS: PANTOPRAZOLE SOD 40 MG TABEC PO SCH (09:55)
[2019-01-08] MEDS: DICLOFENAC SOD 1% GEL 100 GM TUBE TP SCH ×4 (09:55→22:00)
[2019-01-08] MEDS: NITROFURANTOIN MACROCRYSTALS 100 MG CAP PO SCH ×2 (09:55→17:17)
[2019-01-08] MEDS: CHOLECALCIFEROL 1,000 UNIT TAB PO SCH (09:55)
[2019-01-08] MEDS: LABETALOL HCL 5 MG/ML 20ML VIAL IV PRN (11:42)
[2019-01-08] MEDS ORDERED: LOSARTAN POTASSIUM 25 MG TAB PO ONE (15:00)
--- NOTE | 2019-01-08 16:00 | NUR ---
When Dr. Orourke was here he was made aware of elevated BP and states he will continue to watch and later today he increased losartan dose. Pt denies nausea. Complains of pain to back.
--- NOTE | 2019-01-08 16:13 | Progress Note ---
DATE: 01/08/2019 Cardiology Progress Note. SUBJECTIVE: The patient reports nausea. Denies any chest pain, shortness of breath. OBJECTIVE: VITAL SIGNS: Temperature is 98.1, heart rate 71, respirations are 18, blood pressure 213/84 supine, standing is 143/63. GENERAL: No apparent distress. CARDIOVASCULAR: Regular rate and rhythm. No murmurs. LUNGS: Clear to auscultation. ABDOMEN: Soft, nontender, nondistended. EXTREMITIES: No edema. CARDIOVASCULAR MEDICATIONS: Reviewed. LABORATORY DATA: Reviewed. TELEMETRY MONITORING: Revealed normal sinus rhythm. IMPRESSION: 1. Hypertensive urgency. 2. Orthostasis. 3. Syncope. 4. Hyperlipidemia. 5. Recurrent falls. RECOMMENDATIONS: The patient's blood pressure has remained significantly elevated when in the supine position. Standing today, there was a drop in blood pressure. However, she was not hypotensive. Her 2D echocardiogram showed preserved left ventricular systolic function. We will increase the losartan and continue Coreg. We will continue to monitor with you. Neal Orourke DO BM/MODL /[id number]
--- NOTE | 2019-01-08 19:25 | NUR ---
Patient received lying in bed. AAO x 3. Patient had no complaints of pain. Respirations even and non-labored. Patient instructed to call for assistance whenever she needs to go to the bathroom (especially due to orthostatic BP changes). Fall precautions implemented. Patient verbalized understanding. Call light within reach.
[2019-01-08] MEDS: SIMVASTATIN 40 MG TAB PO SCH (21:44)
[2019-01-09] VITALS (14 sets, daily range): BP systolic 127–212; BP diastolic 53–90
[2019-01-09] MEDS: LEVOTHYROXINE SODIUM 75 MCG TAB PO SCH (06:07)
--- NOTE | 2019-01-09 06:41 | NUR ---
Patient resting comfortably. Walking rounds done. Shift report given to oncoming nurse.
--- NOTE | 2019-01-09 07:14 | NUR ---
PATIENT IN BED RESTING WITH NO RESPIRATORY DISTRESS. DENIED PAIN AT THIS TIME. TELEMETRY BOX IN PLACE WITH PULSE OX, BRUISES TO LEFT ARM. BED IN LOWER POSITION, CALL LIGHT AT REACH.
[2019-01-09] MEDS: INSULIN REGULAR, HUMAN 100 UNIT/1 ML 3ML VIAL SQ SCH ×4 (07:30→20:34)
[2019-01-09] MEDS: SUCRALFATE 1 GM/10 ML SUSP PO SCH ×4 (07:55→20:34)
[2019-01-09] MEDS: DICLOFENAC SOD 1% GEL 100 GM TUBE TP SCH ×4 (09:00→21:34)
[2019-01-09] MEDS ORDERED: LOSARTAN POTASSIUM 100 MG TAB PO SCH (09:00)
[2019-01-09] MEDS: NITROFURANTOIN MACROCRYSTALS 100 MG CAP PO SCH ×2 (09:24→17:19)
[2019-01-09] MEDS: PANTOPRAZOLE SOD 40 MG TABEC PO SCH (09:24)
[2019-01-09] MEDS: LIDOCAINE 5% PATCH TP SCH (09:24)
[2019-01-09] MEDS: CHOLECALCIFEROL 1,000 UNIT TAB PO SCH (09:24)
[2019-01-09] MEDS: CARVEDILOL 12.5 MG TAB PO SCH ×2 (09:28→17:19)
[2019-01-09] MEDS: LABETALOL HCL 5 MG/ML 20ML VIAL IV PRN ×2 (11:40→21:56)
--- NOTE | 2019-01-09 12:34 | NUR ---
PATIENT NOTED WITH B/P OF 212/60, PRN LABETALOL GIVEN ORDERED. B/P RECHECKED WITH THE READING OF 166/61. WILL CLOSELY MONITOR.
--- NOTE | 2019-01-09 16:08 | NUR ---
PATIENT C/O ITCHING. MD NOTIFIED, NEW ORDER RECEIVED.
[2019-01-09] MEDS ORDERED: DIPHENHYDRAMINE HCL 25 MG CAP PO PRN (16:15)
--- NOTE | 2019-01-09 16:45 | NUR ---
DC PLANNING: ADC: OVER THE WEEKEND. PT STATES NEHA SAID MAYBE SATURDAY. ORTHO VS BEING DONE; PT IS SYMPTOMATIC. LEROY INCREASED LOSARTAN AND COREG PER EMR. EXPLAINED IMM LETTER TO THE PT. VERBALIZED UNDERSTANDING. IMM LETTER SIGNED. COPY TO THE CHART AND COPY TO THE PT.
--- NOTE | 2019-01-09 19:05 | NUR ---
REPORT GIVEN TO ON COMING NURSE.
--- NOTE | 2019-01-09 19:22 | NUR ---
Patient received lying in bed. AAO x 3. Denies pain at this time. Respirations even and non-labored. Fall precautions implemented. Call light within reach.
[2019-01-09] MEDS: HYDROCODONE/APAP 10MG-325MG TAB PO PRN (20:33)
[2019-01-09] MEDS: SIMVASTATIN 40 MG TAB PO SCH (20:34)
[2019-01-10] VITALS (18 sets, daily range): BP systolic 92–193; BP diastolic 47–88
[2019-01-10] MEDS: HYDRALAZINE HCL 20 MG/ML VIAL IV PRN (00:46)
[2019-01-10] MEDS: LEVOTHYROXINE SODIUM 75 MCG TAB PO SCH (05:43)
[2019-01-10] MEDS: LABETALOL HCL 5 MG/ML 20ML VIAL IV PRN ×2 (05:43→21:36)
--- NOTE | 2019-01-10 06:33 | NUR ---
Patient resting comfortably. Shift report given to oncoming nurse.
--- NOTE | 2019-01-10 07:10 | NUR ---
PATIENT IN BED RESTING WITH EYES CLOSED, NO RESPIRATORY DISTRESS OBSERVED. TOBY HOSE TO LOWER EXTREMITIES. BED IN LOWER POSITION, CALL LIGHT AT REACH.
[2019-01-10] MEDS: INSULIN REGULAR, HUMAN 100 UNIT/1 ML 3ML VIAL SQ SCH ×4 (07:30→21:00)
[2019-01-10] MEDS: SUCRALFATE 1 GM/10 ML SUSP PO SCH ×4 (07:45→21:37)
[2019-01-10] MEDS: POLYETHYLENE GLYCOL 3350 17 GM PACK PO PRN ×2 (08:43→22:55)
[2019-01-10] MEDS: LIDOCAINE 5% PATCH TP SCH (09:00)
[2019-01-10] MEDS: LOSARTAN POTASSIUM 100 MG TAB PO SCH (09:03)
[2019-01-10] MEDS: CHOLECALCIFEROL 1,000 UNIT TAB PO SCH (09:03)
[2019-01-10] MEDS: CARVEDILOL 12.5 MG TAB PO SCH ×2 (09:03→17:25)
[2019-01-10] MEDS: NITROFURANTOIN MACROCRYSTALS 100 MG CAP PO SCH ×2 (09:03→17:25)
[2019-01-10] MEDS: PANTOPRAZOLE SOD 40 MG TABEC PO SCH (09:03)
[2019-01-10] MEDS: DICLOFENAC SOD 1% GEL 100 GM TUBE TP SCH ×4 (09:04→21:37)
--- NOTE | 2019-01-10 09:53 | Progress Note ---
DATE: 01/10/2019 SUBJECTIVE: An 83-year-old female, who comes in with hypertensive emergency, abdominal pain, and reflux esophagitis. The patient continues to have high blood pressure, continues to have headache, and also constipation. OBJECTIVE: VITAL SIGNS: Pulse of 67, blood pressure is running in the 190s to 80s in the bottom. The patient's alpha-blockers have been stopped because of orthostatic hypertension. The patient's pulse ox was 97% on room air. HEENT: Normocephalic, atraumatic. Pupils are reactive to light and accommodation. CVS: S1 and S2 normal. Regular rate and rhythm. ABDOMEN: Nontender, nondistended. EXTREMITIES: No clubbing, no cyanosis, and no edema. LABORATORY VALUES: Initial white count is at 11,624. The patient's chemistries; glucose have been running between 130s to 180s. Urine has been normal so far. Coags not done. MEDICATIONS: The patient is on hydralazine 10 mg IV q.6 hours, simvastatin 40 mg at nighttime. The patient is also on carvedilol 25 mg twice a day, losartan 50 mg daily, pantoprazole 40 mg daily, and Levsin for pain control for abdomen. ASSESSMENT: 1. Hypertensive urgency. 2. Abdominal pain. 3. Constipation. 4. Hyperlipidemia. 5. History of recurrent falls. PLAN: Plan is to continue with the same medications. At this time, we will check a thyroid level, up titrate medications as needed. Also give her a dose of milk of magnesia for constipation and again check her thyroid for constipation. We will continue to monitor the patient. The patient's echocardiogram showed preserved LV functions, EF of 55% with concentric LVH. Further recommendation per clinical course. MD GALLITO Bonilla/MODL /[id number]
--- NOTE | 2019-01-10 10:15 | NUR ---
PATIENT NOTED WITH TEMPERATURE OF 102.3, PRN TYLENOL GIVEN, WET WASH CLOTH APPLIED TO FOREHEAD AND ARMPIT. TEMPERATURE RECHECKED WITH THE READING OF 99.9. MD IN TO SEE PATIENT, NO NEW ORDER RECEIVED. WILL CLOSELY MONITOR. Addendum: 01/10/19 at 1112 by Momo Baeza RN WRONG PATIENT.
--- NOTE | 2019-01-10 10:50 | NUR ---
PATIENT ASSISTED TO THE BED SIDE COMMODE AND BACK TO BED. VOIDED LARGE AMOUNT OF YELLOW URINE. BED IN LOWER POSITION, CALL LIGHT AT REACH.
--- NOTE | 2019-01-10 14:59 | NUR ---
Nutrition Intervention Note RD Recommendation(s) for Physician: The patient meets criteria for unspecified SEVERE protein-calorie malnutrition. - Continue current diet as ordered - Rec Ensure Clear TID to increase protein-calorie intake - RD discussed menu options and obtained diet preferences Plan of Care: RD following, monitoring for tolerance and adequacy, ONS rec Nutrition reason for involvement: Follow up RD Assessment 01/10 - Visited pt in the room. Pt ate ~50-75% of her meals since admission. Pt reports not wanting any Glucerna shakes. RD has gone through the whole menu with patient. Pt didnt like majority of the options we have. Pt stated I cant eat them due to my ulcer. Pt also extremely picky with foods. Offered Ensure Clear instead of Glucerna as pt didnt like chocolate, strawberry or vanilla. BG ~150-180. Will make a note on [facility]. Will continue to monitor and follow. 01/06 83yo F, who is admitted from home for hypertensive urgency. Visited pt in the room. Pt reports good appetite with ~100% meal intake since admission. No complains of nausea or vomiting. Pt denies any chewing or swallowing difficulty. LBM 01/06. Pt has lost ~60+ lbs since last year due to gastric ulcers. Pt cannot tolerate any high acid or spicy foods. Pt has severe muscle/ fat loss upon NFPA (see below). Pt usually drinks 1 Glucerna shake at home. RD educated pt on low acid food options and how to incorporate more calories into her diet. Will continue to monitor and follow. Principal Problems/Diagnoses: hypertensive urgency PMH: hypertension, hypothyroidism, hypercholesterolemia, CKD II, gastric ulcers, DM GI: abdomen soft, non-tender, flatus present, LBM 01/09 Skin: no pressure wound noted Labs: (01/10) reviewed (01/06) reviewed Meds: Carafate, insulin, protonix, vitamin D3, miralax synthroid Ht: 62in Wt: 117lb BMI: 19.5kg/m2 IBW: 110lb Malnutrition Evaluation (01/06/2019) The patient meets criteria for unspecified SEVERE protein-calorie malnutrition. Energy intake: <75% of estimated energy requirements for >3 months Weight loss: >20% in 1 year (Chronic) Fat loss: Severe apparent ribs, hollow look around orbital region Muscle loss: Severe depression of temporal and interrosseous, protrusion of clavicle Supporting Evidence: Fluid accumulation: none Functional Status: measurably reduced Nutrition Prescription (Diet Order): cardiac/ ADA diet Estimated Nutritional Needs: Calories: 1590 1855kcal (30-35kcal/kg/d) Weight used: CBW Protein: 80 - 106 g (1.5-2g/kg/d) Weight used: CBW Diet Adequacy: Not meeting calorie needs, Not meeting protein needs Diet Education Needs Assessment: Diet education indicated and patient agreeable. low acid food options and how to incorporate more calories into diet Nutrition Care Level: mod Nutrition Diagnosis: Severe malnutrition related to inadequate oral intake as evidenced by <75% of estimated energy requirements for >3 months, >20% weight loss in 1 year (Chronic) as well as severe muscle/ fat loss. Goal: Patient will meet 75-100% of estimated needs by follow up Progress: Progressing Interventions: Modified diet, Commercial beverage, Survival information, Recommended Modifications Monitoring/Evaluation: Total energy intake, Total protein intake, Modified diet, Liquid supplement, and Weight change Signed: Eri Malik, MS, RD, LD
--- NOTE | 2019-01-10 16:14 | NUR ---
BROACH TROUBLE SHOOTER IN TO TALK TO PATIENT ABOUT MEALS AND SOME RECOMMENDATIONS. IN BED WITH CALL LIGHT AT REACH.
--- NOTE | 2019-01-10 19:18 | NUR ---
Patient received sitting up in bed. AAO x 3. Family at bedside. No acute distress noted. Call light within reach.
[2019-01-10] MEDS: HYDROCODONE/APAP 10MG-325MG TAB PO PRN (21:36)
[2019-01-10] MEDS: SIMVASTATIN 40 MG TAB PO SCH (21:37)
[2019-01-11] VITALS (15 sets, daily range): BP systolic 104–213; BP diastolic 52–93
[2019-01-11] MEDS: HYDRALAZINE HCL 20 MG/ML VIAL IV PRN (05:28)
[2019-01-11] MEDS: LEVOTHYROXINE SODIUM 75 MCG TAB PO SCH (05:30)
--- NOTE | 2019-01-11 07:05 | NUR ---
PATIENT IN BED RESTING WITH NO RESPIRATORY DISTRESS. TOBY HOSE IN PLACE. BED IN LOWER POSITION AND LOCKED. CALL LIGHT AT REACH.
--- NOTE | 2019-01-11 07:06 | NUR ---
Shift report given to oncoming nurse.
[2019-01-11] MEDS: INSULIN REGULAR, HUMAN 100 UNIT/1 ML 3ML VIAL SQ SCH ×4 (07:30→21:45)
[2019-01-11 07:41] LABS: BASOPHILS # (AUTO) 0.1 (0.0-0.1); BASOPHILS % 0.4 % (0.0-1.0); EOSINOPHILS # (AUTO) 0.1 (0.0-0.4); EOSINOPHILS % 0.8 % (0.0-6.0); HEMATOCRIT 37.8 % (34.2-44.1); HEMOGLOBIN 12.6 g/dL (12.0-16.0); LYMPHOCYTES # (AUTO) 2.8 (1.0-3.2); LYMPHOCYTES % 19.8 % (18.0-39.1); MEAN CORPUSCULAR HEMOGLOBIN 28.6 pg (28-32); MEAN CORPUSCULAR HGB CONC 33.3 g/dL (31-35); MEAN CORPUSCULAR VOLUME 85.7 fL (81-99); MONOCYTES # (AUTO) 1.2 (0.2-0.8); MONOCYTES % 8.4 % (4.4-11.3); NEUTROPHILS % 70.2 % (38.7-80.0); PLATELET COUNT 305 x10e3/uL (140-360); RED BLOOD COUNT 4.41 x10e6/uL (3.6-5.1); RED CELL DISTRIBUTION WIDTH 13.4 % (11.7-14.4)
[2019-01-11] MEDS: SUCRALFATE 1 GM/10 ML SUSP PO SCH ×4 (07:46→21:45)
[2019-01-11 08:04] LABS: ALANINE AMINOTRANSFERASE 8 IU/L (0-55); ALBUMIN 2.7 g/dL (3.5-5.0); ALBUMIN/GLOBULIN RATIO 1.1 (0.8-2.0); ALKALINE PHOSPHATASE 71 IU/L (40-150); ANION GAP 14.1 mmol/L (8-16); BLOOD UREA NITROGEN 14 mg/dL (7-26); BUN/CREATININE RATIO 17 (6-25); CARBON DIOXIDE 28 mmol/L (22-29); CHLORIDE 93 mmol/L (98-107); CREATININE, SERUM 0.83 mg/dL (0.57-1.11); EST GLOMERULAR FILTRATION RATE > 60 ML/MIN (60-); GLUCOSE 127 mg/dL (74-118); MAGNESIUM 1.5 MG/DL (1.3-2.1); POTASSIUM 4.1 mmol/L (3.5-5.1); SODIUM 131 mmol/L (136-145)
[2019-01-11] MEDS: NITROFURANTOIN MACROCRYSTALS 100 MG CAP PO SCH ×2 (08:42→17:27)
[2019-01-11] MEDS: CARVEDILOL 12.5 MG TAB PO SCH ×2 (08:42→17:28)
[2019-01-11] MEDS: CHOLECALCIFEROL 1,000 UNIT TAB PO SCH (08:42)
[2019-01-11] MEDS: LOSARTAN POTASSIUM 100 MG TAB PO SCH (08:42)
[2019-01-11] MEDS: PANTOPRAZOLE SOD 40 MG TABEC PO SCH (08:42)
[2019-01-11] MEDS: DICLOFENAC SOD 1% GEL 100 GM TUBE TP SCH ×4 (08:43→21:43)
[2019-01-11] MEDS: LIDOCAINE 5% PATCH TP SCH (08:43)
--- NOTE | 2019-01-11 10:51 | Progress Note ---
DATE: 01/11/2019 SUBJECTIVE: The patient is an 83-year-old female who comes in with hypertensive urgency. The patient is currently stable. Had a bowel movement yesterday. Feels better. No headaches. No chest pain. No shortness of breath. OBJECTIVE: VITAL SIGNS: Temperature is 97, pulse of 66 to 70s, respirations of 18, blood pressure is still at 205/72, and sitting it is 152/62. HEENT: Normocephalic and atraumatic. Pupils are reactive to light and accommodation. CVS: S1, S2 normal. Regular rate and rhythm. ABDOMEN: Nontender and nondistended. EXTREMITIES: No clubbing, no cyanosis, no edema. LABORATORY DATA: Today's white count is 14,000, has a left shift. Chemistries are pending. Glucoses are 130s to 140s. The urine was negative both times. Microbiology none done. ASSESSMENT AND PLAN: 1. Hypertensive urgency. We will continue the patient on losartan. 2. Abdominal pain. Continue to monitor the patient's white count. If it is trending up, probable antibiotic is needed. 3. Constipation better. 4. Hyperlipidemia, continue on statin. History of recurrent falls. 5. The patient's echocardiogram showed preserved LV with EF of 55% and concentric left ventricular hypertrophy. We will continue monitoring. The patient may need a neurological consult as an outpatient. For further information, look into the chart. Medicines look into medical reconciliation sheet. The patient's losartan has been uptitrated to 100 mg a day. MD GALLITO Bonilla/SENG /[id number]
--- NOTE | 2019-01-11 15:16 | NUR ---
PATIENT ASSISTED WITH ADLS, REPOSITIONED IN BED. CALL LIGHT AT REACH.
--- NOTE | 2019-01-11 16:05 | NUR ---
Visit made by the Spiritual Care Department Pastoral Visitor, Matthew Little. PV provided pastoral presence, hospitality, and supportive listening. Pastoral Visitor informed pt/family of the scope of [employer] and availability. CARLA LEON Nocturnist Spiritual Care Department O: [phone] Pager: [phone] ([phone] number calling from)
--- NOTE | 2019-01-11 16:17 | Progress Note ---
DATE: 01/11/2019 Cardiology Progress Note SUBJECTIVE: The patient overall feeling well. Blood pressure still elevated. OBJECTIVE: VITAL SIGNS: Temperature is 97.7, heart rate 68, respirations are 20, blood pressure supine is 212/93, seated is 154/66, standing is 119/52. GENERAL: No apparent distress. CARDIOVASCULAR: Regular rate and rhythm. LUNGS: Clear to auscultation. ABDOMEN: Soft, nontender, nondistended. EXTREMITIES: No edema. MEDICATIONS: Reviewed. LABORATORY: Reviewed. TELEMETRY: Monitoring reviewed. Shows normal sinus rhythm. IMPRESSION: 1. Hypertensive urgency. 2. Orthostasis. 3. Syncope. 4. Hyperlipidemia. 5. Recurrent falls. RECOMMENDATIONS: We may have to tolerate supine hypertension to avoid further decreases in her blood pressure when she changes from a supine to standing position. Her standing systolic blood pressure was 110s on current cardiovascular medications. Continue current cardiovascular medications. If able to tolerate, may consider adding Procardia. Neal Orourke DO BM/MODL /[id number]
[2019-01-11] MEDS: HYDROCODONE/APAP 10MG-325MG TAB PO PRN (19:31)
--- NOTE | 2019-01-11 20:00 | NUR ---
RECEIVED PT RESTING IN BED WITH NO S/S OF ACUTE DISTRESS.RESPIRATIONS EVEN /NON LABORED.PT'S IV TO LEFT WRIST NOTED INFILTRATED,CATH TIP NOTED INTACT UP ON REMOVAL,DRESSING APPLIED TO SITE.NEW IV TO LEFT HAND 20 G STARTED,INSTRUCTED PT TO CALL FOR ASSISTANCE NEEDED BY USING CALL LIGHT,PT VERBALIZED UNDERSTANDING.PT REQUESTED SNACK AND SANDWICH WAS PROVIDED.BED ALARM ACTIVATED.CALL LIGHT WITHIN EASY REACH.
[2019-01-11] MEDS: LABETALOL HCL 5 MG/ML 20ML VIAL IV PRN (20:18)
[2019-01-11] MEDS: SIMVASTATIN 40 MG TAB PO SCH (21:44)
[2019-01-12] VITALS (16 sets, daily range): BP systolic 98–200; BP diastolic 51–84
[2019-01-12] MEDS: HYDRALAZINE HCL 20 MG/ML VIAL IV PRN ×3 (00:30→18:38)
--- NOTE | 2019-01-12 04:50 | NUR ---
DR SOLOMON IN UNIT ROUNDING ON PT AT THIS TIME.
[2019-01-12] MEDS: LEVOTHYROXINE SODIUM 75 MCG TAB PO SCH (05:57)
[2019-01-12 06:07] LABS: BASOPHILS # (AUTO) 0.1 (0.0-0.1); BASOPHILS % 0.5 % (0.0-1.0); EOSINOPHILS # (AUTO) 0.2 (0.0-0.4); HEMATOCRIT 37.4 % (34.2-44.1); HEMOGLOBIN 12.8 g/dL (12.0-16.0); LYMPHOCYTES # (AUTO) 2.8 (1.0-3.2); LYMPHOCYTES % 19.6 % (18.0-39.1); MEAN CORPUSCULAR HEMOGLOBIN 28.8 pg (28-32); MEAN CORPUSCULAR HGB CONC 34.2 g/dL (31-35); MEAN CORPUSCULAR VOLUME 84.2 fL (81-99); MONOCYTES # (AUTO) 1.2 (0.2-0.8); MONOCYTES % 8.5 % (4.4-11.3); NEUTROPHILS % 70.1 % (38.7-80.0); PLATELET COUNT 301 x10e3/uL (140-360); RED BLOOD COUNT 4.44 x10e6/uL (3.6-5.1); RED CELL DISTRIBUTION WIDTH 13.6 % (11.7-14.4)
--- NOTE | 2019-01-12 07:09 | NUR ---
BEDSIDE SHIFT REPORT GIVEN TO ONCOMING NURSE,PT RESTING IN BED WITH NO S/S OF DISTRESS.
[2019-01-12] MEDS: INSULIN REGULAR, HUMAN 100 UNIT/1 ML 3ML VIAL SQ SCH ×4 (07:30→21:00)
[2019-01-12] MEDS: SUCRALFATE 1 GM/10 ML SUSP PO SCH ×4 (08:11→20:36)
[2019-01-12] MEDS: CARVEDILOL 12.5 MG TAB PO SCH ×2 (08:12→16:22)
[2019-01-12] MEDS: LOSARTAN POTASSIUM 100 MG TAB PO SCH (08:12)
[2019-01-12] MEDS: PANTOPRAZOLE SOD 40 MG TABEC PO SCH (08:13)
[2019-01-12] MEDS: CHOLECALCIFEROL 1,000 UNIT TAB PO SCH (08:13)
[2019-01-12] MEDS: NITROFURANTOIN MACROCRYSTALS 100 MG CAP PO SCH ×2 (08:13→16:22)
[2019-01-12] MEDS: DICLOFENAC SOD 1% GEL 100 GM TUBE TP SCH ×4 (08:13→20:37)
[2019-01-12] MEDS: LIDOCAINE 5% PATCH TP SCH (08:18)
--- NOTE | 2019-01-12 14:08 | Progress Note ---
DATE: 01/12/2019 Cardiology Progress Note SUBJECTIVE: The patient is feeling better, denies any chest pain or shortness of breath. OBJECTIVE: VITAL SIGNS: Temperature is 97.5, heart rate is 65, respirations are 18, blood pressure is 200/84, supine, sitting is 138/62, ox saturation 99% on room air. GENERAL: She is well-appearing elderly woman, lying comfortably in bed. CARDIOVASCULAR: She has regular rate and rhythm. LUNGS: Clear to auscultation. ABDOMEN: Soft, nontender, nondistended. EXTREMITIES: No clubbing, cyanosis or edema. VASCULAR: 2+ pulses. CARDIOVASCULAR MEDICATIONS: Reviewed. Losartan 100 mg, carvedilol 25 mg b.i.d. LABORATORY DATA: Reviewed. TELEMETRY: Monitoring revealed normal sinus rhythm. IMPRESSION: 1. Hypertension. 2. Orthostasis. 3. Syncope. 4. Hyperlipidemia. 5. Recurrent falls. RECOMMENDATIONS: The patient's blood pressure is still elevated in the supine position. When standing, her blood pressure dropped substantially and she gets dizzy, lightheaded. Continue current cardiovascular medications. We may have to tolerate supine hypertension and in the meantime. If needed, can add Procardia. Neal Orourke DO BM/MODL /[id number]
[2019-01-12] MEDS: POLYETHYLENE GLYCOL 3350 17 GM PACK PO PRN (16:22)
[2019-01-12] MEDS: HYOSCYAMINE 0.125 MG TAB SL PRN (16:22)
--- NOTE | 2019-01-12 19:12 | NUR ---
RECEIVED PT SITTING ON THE BEDSIDE COMMODE.NO ACUTE DISTRESS NOTED CALL LIGHT WITH IN REACH .CONTINUE TO MONITOR
[2019-01-12] MEDS: SIMVASTATIN 40 MG TAB PO SCH (20:36)
[2019-01-12] MEDS: HYDROCODONE/APAP 10MG-325MG TAB PO PRN (20:42)
[2019-01-13] VITALS (14 sets, daily range): BP systolic 112–237; BP diastolic 46–93
[2019-01-13] MEDS: LEVOTHYROXINE SODIUM 75 MCG TAB PO SCH (06:31)
[2019-01-13] MEDS: HYDRALAZINE HCL 20 MG/ML VIAL IV PRN ×2 (06:31→17:44)
--- NOTE | 2019-01-13 06:47 | NUR ---
PT RESTED DURING THE NIGHT .B/P HIGH GIVEN HYDRALAZINE.REPORT GIVEN TO THE ONCOMING NURSE
[2019-01-13] MEDS: CARVEDILOL 12.5 MG TAB PO SCH ×2 (08:36→17:43)
[2019-01-13] MEDS: SUCRALFATE 1 GM/10 ML SUSP PO SCH ×4 (08:36→21:15)
[2019-01-13] MEDS: LOSARTAN POTASSIUM 100 MG TAB PO SCH (08:37)
[2019-01-13] MEDS: PANTOPRAZOLE SOD 40 MG TABEC PO SCH (08:37)
[2019-01-13] MEDS: LIDOCAINE 5% PATCH TP SCH (08:37)
[2019-01-13] MEDS: DICLOFENAC SOD 1% GEL 100 GM TUBE TP SCH ×4 (08:37→21:15)
[2019-01-13] MEDS: CHOLECALCIFEROL 1,000 UNIT TAB PO SCH (08:37)
[2019-01-13] MEDS: INSULIN REGULAR, HUMAN 100 UNIT/1 ML 3ML VIAL SQ SCH ×4 (08:40→21:00)
[2019-01-13] MEDS: POLYETHYLENE GLYCOL 3350 17 GM PACK PO PRN (08:53)
--- NOTE | 2019-01-13 11:13 | Progress Note ---
DATE: 01/13/2019 Cardiology Progress Note SUBJECTIVE: Ms. Green is sleeping comfortably. Her chart was reviewed. PHYSICAL EXAMINATION: VITAL SIGNS: Afebrile. Heart rate is 63, blood pressure is 132/49 with considerable labile blood pressures while standing. MEDICATIONS: Reviewed. TELEMETRY: Shows sinus rhythm. ASSESSMENT: Orthostasis with history of supine hypertension. RECOMMENDATIONS: Considerable orthostasis hypotension was noted on current medications. No changes in current dose of medication. She should continue on losartan 100 mg a day as well as carvedilol 25 mg b.i.d., if needed calcium channel zarina may be added. From the cardiac standpoint, she is stable for discharge. MD BERONICA Mora/SENG /[id number]
--- NOTE | 2019-01-13 11:30 | NUR ---
DISCUSSED IN BARRIER ROUNDS, PT HAS GI CONSULT
--- NOTE | 2019-01-13 18:33 | NUR ---
Pt in bed. AOX4 and able to verbalize needs. Denies any pain at this time. Pt eating more after diet has been changed.
--- NOTE | 2019-01-13 19:37 | NUR ---
RECEIVED P T IN BED SLEEPING .NO ACUTE DISTRESS NOTED CALL LIGHT WITH IN REACH .CONTINUE TO MONITOR
[2019-01-13] MEDS: SIMVASTATIN 40 MG TAB PO SCH (21:15)
[2019-01-13] MEDS: HYDROCODONE/APAP 10MG-325MG TAB PO PRN (21:16)
[2019-01-14] VITALS (11 sets, daily range): BP systolic 104–232; BP diastolic 45–81
--- NOTE | 2019-01-14 01:01 | Consultation ---
DATE OF CONSULTATION: 01/13/2019 GI Consult Note REASON FOR CONSULT: Chronic left upper quadrant and epigastric pain. HISTORY OF PRESENTING ILLNESS: An 83-year-old female, who is a patient of my associate, Dr. Martino. The patient got admitted in the hospital with hypertensive urgencies. Hypertension is now under well controlled. The patient has been complaining about left upper quadrant and epigastric pain for few months. This is usually 4 x 10 in intensity, nonradiating, often associated with some nausea. It has no aggravating or relieving factor. The patient has had upper endoscopy to evaluate this abdominal pain by Dr. Martino in September of this year. As per the patient, the procedure was done in [facility]. She does not have the report with her. She was told that she has some ulcers in her stomach. She was advised to take antacid as well as Carafate. The patient also has appointment to see Dr. Martino in his office sometime this month. The patient has been taking pantoprazole and sucralfate at home with which the epigastric pain has somewhat improved. She denies any lower GI symptoms. As per patient, she also has had a colonoscopy performed by Dr. Martino sometime in 2016. REVIEW OF SYSTEMS: Twelve point system reviewed, symptomatology is limited as per HPI. PAST MEDICAL HISTORY: Hyperlipidemia, GERD, hypertension, and chronic abdominal pain. PAST SURGICAL HISTORY: Upper endoscopy in September of this year. FAMILY HISTORY: Noncontributory. SOCIAL HISTORY: No smoking, alcohol, or any illicit drug use. ALLERGIES: PENICILLIN AND MORPHINE. HOME MEDICATIONS: Biotene, carvedilol, vitamin D3, doxazosin, hyoscyamine, insulin lispro, levothyroxine, lovastatin, pantoprazole, spironolactone, sucralfate, vitamin E, and nitrofurantoin 100 mg twice daily for 10 days. Inpatient medication reviewed as per SEP. She is being put on diclofenac sodium four times daily. This is a dermal cream. PHYSICAL EXAMINATION: VITAL SIGNS: Temperature 97.2, pulse 65, respirations 17, blood pressure 214/84, and oxygen saturation 98% on room air. GENERAL: Not in any acute distress. HEENT: Oral mucosa is moist. Anicteric sclerae. CVS: S1, S2. Regular. LUNGS: Bilaterally grossly clear. ABDOMEN: Soft, nondistended, and nontender. Poorly localized tenderness in the left upper and left lower quadrant tenderness without rebound, rigidity, or guarding. Positive bowel sounds. EXTREMITIES: Warm. No leg edema. LABORATORY DATA: WBC 14.32, hemoglobin 12.8, hematocrit 37.4, MCV 84.2, and platelet count 301. Sodium 131, potassium 4.1, chloride 93, bicarb 28, BUN 14, creatinine 0.83, and glucose 127. Liver enzymes normal. IMPRESSION: 1. Uncontrolled hypertension. 2. Chronic abdominal pain, likely irritable bowel syndrome. 3. As per patient, recent upper endoscopy showed some ulcers in her stomach. 4. Gastroesophageal reflux disease. PLAN: From GI standpoint, recommend continue PPI twice daily. Add sucralfate as prescribed by Dr. Martino. Medical management for uncontrolled hypertension. Once blood pressure is under good control and she can be discharged from GI standpoint as well. She is to follow with Dr. Martino in his office as previously scheduled. I thank Dr. Kelly for allowing me to participate in the care of this patient. Сергей Allen MD SA/SENG /[id number]
[2019-01-14] MEDS: LEVOTHYROXINE SODIUM 75 MCG TAB PO SCH (05:27)
--- NOTE | 2019-01-14 05:43 | NUR ---
PT RESTING DURING THE NIGHT .DENIES PAIN .CALL LIGHT WITH IN REACH .CONTINUE TO MONITOR
--- NOTE | 2019-01-14 06:50 | NUR ---
REPORT GIVEN TO THE ON COMING NURSE.
--- NOTE | 2019-01-14 07:16 | NUR ---
PATIENT IN BED RESTING WITH NO S/S OF DISTRESS. DENIED PAIN AT THIS TIME. TELEMETRY BOX IN PLACE. BED IN LOWER POSITION, CALL LIGHT AT REACH.
[2019-01-14] MEDS: INSULIN REGULAR, HUMAN 100 UNIT/1 ML 3ML VIAL SQ SCH ×4 (07:30→20:18)
[2019-01-14] MEDS: SUCRALFATE 1 GM/10 ML SUSP PO SCH ×2 (07:35→16:40)
[2019-01-14] MEDS: PANTOPRAZOLE SOD 40 MG TABEC PO SCH ×2 (08:38→16:40)
[2019-01-14] MEDS: CHOLECALCIFEROL 1,000 UNIT TAB PO SCH (08:38)
[2019-01-14] MEDS: LOSARTAN POTASSIUM 100 MG TAB PO SCH (08:38)
[2019-01-14] MEDS: CARVEDILOL 12.5 MG TAB PO SCH ×2 (08:38→17:10)
[2019-01-14] MEDS: LIDOCAINE 5% PATCH TP SCH (08:39)
[2019-01-14] MEDS: DICLOFENAC SOD 1% GEL 100 GM TUBE TP SCH ×4 (09:12→20:17)
[2019-01-14] MEDS ORDERED: CLONIDINE HCL 0.2 MG TAB PO PRN ×2 (11:45→13:00)
--- NOTE | 2019-01-14 11:50 | NUR ---
PATIENT NOTED WITH ELEVATED B/P. MD NOTIFIED, NEW ORDER RECEIVED.
--- NOTE | 2019-01-14 13:14 | Progress Note ---
DATE: 01/14/2019 GI Progress Report SUBJECTIVE: The patient reports same abdominal pain. No change. Able to eat her breakfast. No bowel movement today. REVIEW OF SYSTEMS: GENERAL: No fever or chills. CVS: No chest pain or palpitation. RESPIRATORY: No cough or expectoration. MEDICATIONS: Reviewed the MAR. She is on pantoprazole 40 mg daily along with sucralfate 4 times daily, she is also on MiraLAX for constipation along with other medication. PHYSICAL EXAMINATION: VITAL SIGNS: Temperature 98.4, pulse 65, respiration 20 to 21, blood pressure 193/60, oxygen saturation 99% on room air. GENERAL: Not in any acute distress. Oral mucosa is moist. ABDOMEN: Soft. Mild tenderness in the epigastric and left upper quadrant area with mild palpation, no rebound, rigidity, or guarding. Positive bowel sounds. LABORATORY DATA: None drawn today. IMPRESSION: 1. Chronic epigastric/left upper quadrant pain. Background history of peptic ulcer. 2. Constipation. 3. Irritable bowel syndrome. 4. Uncontrolled hypertension. PLAN: Recommend to increase PPI to twice daily. Cut down sucralfate to twice daily (sucralfate can cause constipation) and daily bowel regimen and hyoscyamine for abdominal cramping to treat abdominal pain secondary to irritable bowel syndrome. Сергей Allen MD SA/SENG /[id number] MTDD
--- NOTE | 2019-01-14 13:50 | NUR ---
PATIENT NOTED WITH B/P OF 232/81. PRN MEDICATION GIVEN ORDERED. B/P RECHECKED WITH THE READING OF 159/62. WILL CLOSELY MONITOR.
--- NOTE | 2019-01-14 16:08 | NUR ---
PT USES A WALKER AT HOME AND SON IS VENKAT AGUILAR [phone]
--- NOTE | 2019-01-14 19:10 | NUR ---
Bedside report walking rounds complete. Pt resting in bed and in no apparent distress. Pt on room air and tele. All safety measures ensured, bed alarm on, and pt call avendano near. Pt encouraged to use call avendano for assistance.
--- NOTE | 2019-01-14 20:05 | NUR ---
Pt had 2 moderate to large BMs. Pt given shower and gown/linens changed. Pt refused to put gabby hose on.
[2019-01-14] MEDS: SENNA-S TABLET PO SCH (20:17)
[2019-01-14] MEDS: SIMVASTATIN 40 MG TAB PO SCH (20:18)
[2019-01-14] MEDS: HYOSCYAMINE 0.125 MG TAB SL PRN (22:16)
[2019-01-15] VITALS (11 sets, daily range): BP systolic 76–182; BP diastolic 48–76
[2019-01-15] MEDS: CLONIDINE HCL 0.2 MG TAB PO PRN ×2 (01:35→21:13)
--- NOTE | 2019-01-15 01:36 | NUR ---
PCT unable to get pt 0000 vitals, 3 attempts. I took pt BP manual and then with automatic. Manual 180/62 and automatic 198/86. Pt asymptomatic, no complaints. Pt given Clonidine 0.1 mg po. Will continue to monitor and recheck pt BP.
--- NOTE | 2019-01-15 03:10 | NUR ---
Repeat BP 128/60. Pt has no complaints.
[2019-01-15] MEDS: LEVOTHYROXINE SODIUM 75 MCG TAB PO SCH (05:49)
[2019-01-15 06:06] LABS: BASOPHILS # (AUTO) 0.1 (0.0-0.1); BASOPHILS % 0.2 % (0.0-1.0); EOSINOPHILS # (AUTO) 0.1 (0.0-0.4); EOSINOPHILS % 0.2 % (0.0-6.0); HEMATOCRIT 38.4 % (34.2-44.1); HEMOGLOBIN 13.1 g/dL (12.0-16.0); LYMPHOCYTES # (AUTO) 1.9 (1.0-3.2); LYMPHOCYTES % 7.3 % (18.0-39.1); MEAN CORPUSCULAR HEMOGLOBIN 28.5 pg (28-32); MEAN CORPUSCULAR HGB CONC 34.1 g/dL (31-35); MEAN CORPUSCULAR VOLUME 83.7 fL (81-99); MONOCYTES # (AUTO) 1.7 (0.2-0.8); MONOCYTES % 6.5 % (4.4-11.3); NEUTROPHILS # (AUTO) 22.4 (2.1-6.9); NEUTROPHILS % 85.1 % (38.7-80.0); PLATELET COUNT 353 x10e3/uL (140-360); RED BLOOD COUNT 4.59 x10e6/uL (3.6-5.1); RED CELL DISTRIBUTION WIDTH 13.6 % (11.7-14.4)
[2019-01-15 06:22] LABS: ALBUMIN 2.4 g/dL (3.5-5.0); ALBUMIN/GLOBULIN RATIO 0.9 (0.8-2.0); ANION GAP 16.9 mmol/L (8-16); CALCIUM 9.7 mg/dL (8.4-10.2); CREATININE, SERUM 1.26 mg/dL (0.57-1.11); MAGNESIUM 1.4 MG/DL (1.3-2.1); POTASSIUM 3.9 mmol/L (3.5-5.1)
--- NOTE | 2019-01-15 07:02 | NUR ---
Bedside report walking rounds complete with day shift RN. Pt resting in bed and in no apparent distress. All safety measures ensured.
--- NOTE | 2019-01-15 07:05 | NUR ---
PATIENT IN BED RESTING WITH EYES CLOSED, NO S/S OF DISTRESS NOTED. BED IN LOWER POSITION, CALL LIGHT AT REACH.
[2019-01-15] MEDS: INSULIN REGULAR, HUMAN 100 UNIT/1 ML 3ML VIAL SQ SCH ×4 (07:30→20:55)
[2019-01-15] MEDS: PANTOPRAZOLE SOD 40 MG TABEC PO SCH ×2 (07:31→16:22)
[2019-01-15] MEDS: SUCRALFATE 1 GM/10 ML SUSP PO SCH ×2 (07:31→16:22)
[2019-01-15] MEDS: LEVOFLOXACIN 500MG/D5W 100ML 100 ML IV SCH (08:00)
[2019-01-15] MEDS ORDERED: SODIUM CHLORIDE 0.9% 250ML 250 ML ONE (08:03)
[2019-01-15] MEDS: LOSARTAN POTASSIUM 100 MG TAB PO SCH (09:00)
[2019-01-15] MEDS: LIDOCAINE 5% PATCH TP SCH (09:00)
[2019-01-15] MEDS: CARVEDILOL 12.5 MG TAB PO SCH ×2 (09:00→17:15)
[2019-01-15] MEDS: CHOLECALCIFEROL 1,000 UNIT TAB PO SCH (09:45)
[2019-01-15] MEDS: DICLOFENAC SOD 1% GEL 100 GM TUBE TP SCH ×4 (09:45→20:55)
--- NOTE | 2019-01-15 11:30 | NUR ---
PATIENT ASSISTED WITH DIAPER CHANGE. REPOSITIONED IN BED WITH CALL LIGHT AT REACH.
[2019-01-15] MEDS: ONDANSETRON HCL 4 MG ORAL DISINTEGRATING TAB PO PRN (16:15)
--- NOTE | 2019-01-15 17:24 | Progress Note ---
DATE: 01/15/2019 Cardiology Progress Note SUBJECTIVE: The patient complains of nausea and vomiting and also left upper quadrant abdominal pain. Denies any chest pain or shortness of breath, but states that she does not feel well. OBJECTIVE: VITAL SIGNS: Temperature 97.8, pulse 75, respiratory rate 19, blood pressure 145/55, and oxygen saturation 100% on room air. GENERAL: Alert and oriented x3, resting comfortably in bed, does not appear to be in any acute distress. NECK: Supple. No JVD noted. CARDIOVASCULAR: Regular rate and rhythm. LUNGS: Diminished breath sounds in anterior lower lobes, otherwise clear to auscultation. ABDOMEN: Tender to palpation especially to the left upper quadrant. Hypoactive bowel sounds. CARDIOVASCULAR MEDICATIONS: Coreg 25 mg p.o. b.i.d., losartan 100 mg p.o. daily, clonidine 0.2 mg q.4 hours p.r.n., simvastatin 40 mg p.o. h.s., and hydralazine 10 mg q.4 hours p.r.n. LABS: WBC 26.26, hemoglobin 13.1, hematocrit 34.4, platelets 353. Sodium 128, potassium 3.9, BUN 19, creatinine 1.26, glucose 162. TELEMETRY: Sinus rhythm. ASSESSMENT: 1. Hypertension. 2. Orthostatic hypotension. 3. Syncope. 4. Hyperlipidemia. 5. Frequent falls. 6. Abdominal pain. RECOMMENDATION: Consider GI consult. Continue PPI therapy. Dr. Martino managing. Maintain on telemetry at all times. We will continue to follow this patient very closely. Dictated by Estrella Gonzalez NP MD IMTIAZ Mora/SENG /[id number]
--- NOTE | 2019-01-15 17:30 | NUR ---
PATIENT NOTED WITH SMALL AMOUNT OF EMESIS DURING ORTHOSTATIC B/P CHECKED, C/O NAUSEA. PRN ZOFRAN GIVEN ORDERED. NO MORE C/O NAUSEA. IN BED WITH CALL LIGHT AT REACH, WILL CONTINUE TO MONITOR.
[2019-01-15] MEDS: SENNA-S TABLET PO SCH (20:55)
[2019-01-15] MEDS: SIMVASTATIN 40 MG TAB PO SCH (20:55)
--- NOTE | 2019-01-15 21:00 | NUR ---
PATIENT IN STABLE CONDITION, NO DISTRESS NOTED. COMPLAINS OF ABDOMINAL PAIN AND WAS GIVEN LEVSIN, CONTINUING TO MONITOR.
[2019-01-15] MEDS: HYOSCYAMINE 0.125 MG TAB SL PRN (21:12)
[2019-01-16] VITALS (8 sets, daily range): BP systolic 112–197; BP diastolic 52–79
[2019-01-16] MEDS: HYOSCYAMINE 0.125 MG TAB SL PRN ×2 (01:43→06:27)
--- NOTE | 2019-01-16 02:30 | NUR ---
PATIENT RESTING BOTH EYES CLOSED, NO RESPIRATORY DISTRESS NOTED. BLOOD PRESSURE IS IN NORMAL RANGE AFTER TAKING CLONIDINE PRN. BED IS LOCKED AND IN LOWEST POSITION. CALL LIGHT WITHIN EASY REACH, WILL CONTINUE TO MONITOR.
[2019-01-16 06:07] LABS: BASOPHILS # (AUTO) 0.1 (0.0-0.1); BASOPHILS % 0.2 % (0.0-1.0); EOSINOPHILS % 0.1 % (0.0-6.0); HEMATOCRIT 37.4 % (34.2-44.1); HEMOGLOBIN 12.8 g/dL (12.0-16.0); LYMPHOCYTES # (AUTO) 1.8 (1.0-3.2); LYMPHOCYTES % 4.7 % (18.0-39.1); MEAN CORPUSCULAR HEMOGLOBIN 28.8 pg (28-32); MEAN CORPUSCULAR HGB CONC 34.2 g/dL (31-35); MEAN CORPUSCULAR VOLUME 84.2 fL (81-99); MONOCYTES # (AUTO) 2.3 (0.2-0.8); MONOCYTES % 6.2 % (4.4-11.3); NEUTROPHILS # (AUTO) 32.9 (2.1-6.9); NEUTROPHILS % 87.6 % (38.7-80.0); PLATELET COUNT 388 x10e3/uL (140-360); RED BLOOD COUNT 4.44 x10e6/uL (3.6-5.1); RED CELL DISTRIBUTION WIDTH 13.7 % (11.7-14.4)
[2019-01-16] MEDS: LEVOTHYROXINE SODIUM 75 MCG TAB PO SCH (06:27)
[2019-01-16 06:59] LABS: ANISOCYTOSIS S; BAND NEUTROPHILS % (MANUAL) 11 %; LYMPHOCYTES % (MANUAL) 5 % (19-48); MONOCYTES % (MANUAL) 4 % (3.4-9.0); NEUTROPHILS % (MANUAL) 80 % (40-74); PLATELET ESTIMATE SLIGHTLY INCREASED; PLATELET MORPHOLOGY COMMENT NORMAL; POIKILOCYTOSIS S
[2019-01-16] MEDS: INSULIN REGULAR, HUMAN 100 UNIT/1 ML 3ML VIAL SQ SCH ×4 (07:30→21:00)
[2019-01-16] MEDS: PANTOPRAZOLE SOD 40 MG TABEC PO SCH ×2 (07:52→16:36)
[2019-01-16] MEDS: SUCRALFATE 1 GM/10 ML SUSP PO SCH ×2 (07:52→16:36)
[2019-01-16 08:06] LABS: ALBUMIN 2.3 g/dL (3.5-5.0); ALBUMIN/GLOBULIN RATIO 0.8 (0.8-2.0); ALKALINE PHOSPHATASE 90 IU/L (40-150); ANION GAP 20.4 mmol/L (8-16); BLOOD UREA NITROGEN 33 mg/dL (7-26); BUN/CREATININE RATIO 12 (6-25); CALCIUM 8.8 mg/dL (8.4-10.2); CARBON DIOXIDE 19 mmol/L (22-29); CHLORIDE 91 mmol/L (98-107); CREATININE, SERUM 2.67 mg/dL (0.57-1.11); EST GLOMERULAR FILTRATION RATE 17 ML/MIN (60-); GLUCOSE 177 mg/dL (74-118); MAGNESIUM 1.4 MG/DL (1.3-2.1); POTASSIUM 4.4 mmol/L (3.5-5.1); SODIUM 126 mmol/L (136-145)
[2019-01-16 08:08] LABS: ALANINE AMINOTRANSFERASE < 6 IU/L (0-55)
[2019-01-16] MEDS: LEVOFLOXACIN 500MG/D5W 100ML 100 ML IV SCH (08:52)
[2019-01-16] MEDS: DICLOFENAC SOD 1% GEL 100 GM TUBE TP SCH ×3 (09:00→18:05)
[2019-01-16] MEDS: CHOLECALCIFEROL 1,000 UNIT TAB PO SCH (11:37)
[2019-01-16] MEDS: LIDOCAINE 5% PATCH TP SCH (11:37)
[2019-01-16] MEDS: LOSARTAN POTASSIUM 100 MG TAB PO SCH (11:38)
[2019-01-16] MEDS: CARVEDILOL 12.5 MG TAB PO SCH ×2 (11:38→16:37)
--- NOTE | 2019-01-16 13:00 | NUR ---
Called Dr. Martino's office for consult, we were informed Dr. Martino no in town and Dr. Long will be covering for him office will make Dr. Long aware of GI consult.
--- NOTE | 2019-01-16 14:57 | NUR ---
DISCUSSED IN ROUNDS, PT LIVES IN UPSTAIRS APARTMENT BY SELF HAS A WALKER AND [facility], CURRENTLY ON ABX. PPI INCREASED TO 2 X DAILY, CUT DOWN SULFATE DAILY BOWEL REGIMEN
--- NOTE | 2019-01-16 17:33 | NUR ---
Nutrition Follow-up Note RD Recommendation(s) for Physician: The patient meets criteria for unspecified SEVERE protein-calorie malnutrition. - Continue current diet as ordered - Obtain stool culture for diarrhea - Pt refused any nutrition intervention Plan of Care: RD following, monitoring for tolerance and adequacy Nutrition reason for involvement: Follow up RD Assessment 01/16 Pt was discussed during AM rounds. Renal function has declined. WBC was elevated. Pt continued to have high blood pressure. Visited pt in the room. Pt reported nausea, vomiting and diarrhea. Pt didnt touch any of her lunch today. Pt stated I feel sick when I smell foods. Pt refused any nutrition intervention. Will continue to monitor and follow. 01/10 - Visited pt in the room. Pt ate ~50-75% of her meals since admission. Pt reports not wanting any Glucerna shakes. RD has gone through the whole menu with patient. Pt didnt like majority of the options we have. Pt stated I cant eat them due to my ulcer. Pt also extremely picky with foods. Offered Ensure Clear instead of Glucerna as pt didnt like chocolate, strawberry or vanilla. BG ~150-180. Will make a note on [facility]. Will continue to monitor and follow. 01/06 83yo F, who is admitted from home for hypertensive urgency. Visited pt in the room. Pt reports good appetite with ~100% meal intake since admission. No complains of nausea or vomiting. Pt denies any chewing or swallowing difficulty. LBM 01/06. Pt has lost ~60+ lbs since last year due to gastric ulcers. Pt cannot tolerate any high acid or spicy foods. Pt has severe muscle/ fat loss upon NFPA (see below). Pt usually drinks 1 Glucerna shake [address] home. RD educated pt on low acid food options and how to incorporate more calories into her diet. Will continue to monitor and follow. Principal Problems/Diagnoses: hypertensive urgency PMH: hypertension, hypothyroidism, hypercholesterolemia, CKD II, gastric ulcers, DM GI: abdomen soft, flat, tender, liquid stool Skin: no pressure wound noted Labs: (01/16) Na 126 L, BUN 33 H, Creatinine 2.67 H, Glucose 162 H (01/10) reviewed (01/06) reviewed Meds: insulin, carafate, protonix, vitamin D3, synthroid Ht: 62in Wt: 117lb BMI: 19.5kg/m2 IBW: 110lb Malnutrition Evaluation (01/06/2019) The patient meets criteria for unspecified SEVERE protein-calorie malnutrition. Energy intake: <75% of estimated energy requirements for >3 months Weight loss: >20% in 1 year (Chronic) Fat loss: Severe apparent ribs, hollow look around orbital region Muscle loss: Severe depression of temporal and interrosseous, protrusion of clavicle Supporting Evidence: Fluid accumulation: none Functional Status: measurably reduced Nutrition Prescription (Diet Order): regular diet Estimated Nutritional Needs: Calories: 1590 1855kcal (30-35kcal/kg/d) Weight used: CBW Protein: 80 - 106 g (1.5-2g/kg/d) Weight used: CBW Diet Adequacy: Not meeting calorie needs, Not meeting protein needs Diet Education Needs Assessment: Diet education indicated and patient agreeable. low acid food options and how to incorporate more calories into diet Nutrition Care Level: mod Nutrition Diagnosis: Severe malnutrition related to inadequate oral intake as evidenced by <75% of estimated energy requirements for >3 months, >20% weight loss in 1 year (Chronic) as well as severe muscle/ fat loss. Goal: Patient will meet 75-100% of estimated needs by follow up Progress: Not progressing Interventions: Modified diet Monitoring/Evaluation: Total energy intake, Total protein intake, Modified diet and Weight change Signed: Eri Malik MS, RD, LD
--- NOTE | 2019-01-16 18:09 | NUR ---
Called Dr. Kelly left message [phone], made him aware patient had only voided once all day in this 12 hour shift. I also made him aware of kidney, function and WBC's. wating for call back.
--- NOTE | 2019-01-16 18:20 | NUR ---
Received call back from Dr. Kelly made him aware WBC 37.54 and Bun 33 creatinine 2.67, and sodium 126, I also informed Dr. Kelly patient had only voided once, and urine was dark dari, and had not voided since. Received orders to place patient on fluids NS @75cc per hour, and to call GI whoever was covering for [place] and have them come to see her.
--- NOTE | 2019-01-16 18:35 | NUR ---
Dr. Sparks from GI rounding to see patient received orders to collect stool and send for C-diff.
[2019-01-16] MEDS ORDERED: SODIUM CHLORIDE 0.9% 500ML 500 ML IV ONE ×2 (18:45→19:00)
[2019-01-16] MEDS ORDERED: DIATRIZOATE MEGL/DIATRIZOA SOD 30 ML BTL PO ONE ×2 (19:05→19:20)
--- NOTE | 2019-01-16 20:00 | NUR ---
PATIENTS IV BEGAN TO LEAK DURING FLUID BOLUS. BOLUS STOPPED AND NEW IV IN PROCESS OF BEING APPLIED.
--- NOTE | 2019-01-16 20:40 | NUR ---
AFTER ATTEMPTING TO APPLY IV TO PATIENT WAS UNSUCCESSFUL, ANOTHER RN WAS ABLE TO HELP APPLY IV TO LEFT FOREARM. WILL CONTINUE BOLUS.
[2019-01-16] MEDS: SIMVASTATIN 40 MG TAB PO SCH (21:00)
[2019-01-16] MEDS: VANCOMYCIN 250MG/5ML ORAL SOLN PO SCH (21:05)
--- NOTE | 2019-01-16 22:00 | NUR ---
PATIENT HAD TWO DIARRHEA BOWL MOVEMENTS IN DIAPER WITHIN AN HOUR. PATIENT USED BEDSIDE COMMODE TO FINISH.
--- NOTE | 2019-01-16 22:50 | NUR ---
PATIENT HAS LEFT ROOM WITH RADIOLOGY.
--- NOTE | 2019-01-16 23:15 | NUR ---
PATIENT HAS RETURNED FROM RADIOLOGY.
[2019-01-16] MEDS: METRONIDAZOLE 500MG/NS 100ML 100 ML IV SCH (23:30)
--- NOTE | 2019-01-16 23:43 | Diagnostic Imaging Report ---
CT Abdomen and Pelvis without contrast INDICATION: Left lower quadrant pain, nausea, vomiting, diarrhea TECHNIQUE: Thin collimation axial images obtained from the diaphragm to the level of the pubic symphysis without nonionic intravenous contrast. Dose reduction techniques used: Automated exposure control, adjustment of the mAs and/or kVp according to patient size, standardized low-dose protocol, and/or iterative reconstruction technique. RADIATION DOSE: Total DLP: 245.77 mGy*cm Estimated effective dose: (DLP x 0.015 x size factor) mSv CTDIvol has been reviewed. It is below the limits set by the Radiation Protocol Committee (RPC). COMPARISON: CT abdomen 07/30/2018. ABDOMEN FINDINGS: Lung Bases: Multiple stable tiny groundglass nodules in the base of the right lower lobe and to a lesser extent the base of the left lower lobe. No confluent infiltrates. There is bibasilar scarring. The visualized portion of the mediastinum is normal. Liver: Normal in attenuation without mass. Gallbladder: Significant distention with dependently layering sludge. Gallbladder rendon are mildly thickened. No ductal dilatation. Pancreas: Atrophic without mass or ductal dilatation. Spleen: Normal size without mass. Adrenal Glands: No evidence for mass. Kidneys: Right: No renal calculus. Lower pole cyst measures 5.4 cm and is stable Left: Markedly atrophic. Cyst in the anterior interpolar region measures 16 mm and is stable. No calculus Lymph Nodes: No lymphadenopathy. Aorta: Heavily calcified and normal in diameter. There is a stent in the left renal artery. Heavy calcifications of the celiac artery PELVIS FINDINGS: Bowel: Stomach: Normal in caliber with normal wall thickness. Small Bowel: Contrast present throughout. Normal in caliber with normal wall thickness. Large Bowel: Contrast present throughout. Mural thickening of the distal transverse colon and descending colon. No associated diverticula.. Appendix: Not visualized. Bladder: Collapsed. Ureters: No ureteral dilatation. The uterus is absent. No adnexal mass. Peritoneum/retroperitoneum: No free fluid or fluid collection. No free air. Bones: Moderate degenerative changes of the lower lumbar spine. No compression deformities. Soft tissues: Lipomas in the inferior left chest and right hip are stable. IMPRESSION: 1. Distended gallbladder with gallbladder wall thickening. This may represent acute or chronic cholecystitis. No biliary ductal dilatation. 2. Diffuse colon wall thickening suggestive of colitis. No bowel obstruction. No perforation or abscess. 3. Stable tiny bibasilar pulmonary nodules. Signed by: Dr. Shady Toth MD on 01/16/2019 11:39 PM
[2019-01-17] VITALS (7 sets, daily range): BP systolic 144–172; BP diastolic 53–83
[2019-01-17] MEDS: VANCOMYCIN 250MG/5ML ORAL SOLN PO SCH ×4 (00:36→19:22)
[2019-01-17] MEDS: SODIUM CHLORIDE 0.9% 1000ML 1,000 ML IV SCH ×2 (04:57→07:50)
[2019-01-17] MEDS: LEVOTHYROXINE SODIUM 75 MCG TAB PO SCH (06:12)
[2019-01-17] MEDS: METRONIDAZOLE 500MG/NS 100ML 100 ML IV SCH ×3 (06:12→22:34)
[2019-01-17 06:16] LABS: BASOPHILS # (AUTO) 0.1 (0.0-0.1); BASOPHILS % 0.2 % (0.0-1.0); EOSINOPHILS # (AUTO) 0.1 (0.0-0.4); EOSINOPHILS % 0.2 % (0.0-6.0); HEMATOCRIT 35.1 % (34.2-44.1); HEMOGLOBIN 12.2 g/dL (12.0-16.0); LYMPHOCYTES # (AUTO) 1.8 (1.0-3.2); LYMPHOCYTES % 5.2 % (18.0-39.1); MEAN CORPUSCULAR HEMOGLOBIN 28.9 pg (28-32); MEAN CORPUSCULAR HGB CONC 34.8 g/dL (31-35); MEAN CORPUSCULAR VOLUME 83.2 fL (81-99); MONOCYTES # (AUTO) 2.4 (0.2-0.8); MONOCYTES % 6.7 % (4.4-11.3); NEUTROPHILS # (AUTO) 30.2 (2.1-6.9); NEUTROPHILS % 84.8 % (38.7-80.0); PLATELET COUNT 396 x10e3/uL (140-360); RED BLOOD COUNT 4.22 x10e6/uL (3.6-5.1); RED CELL DISTRIBUTION WIDTH 13.8 % (11.7-14.4)
[2019-01-17 06:30] LABS: ALBUMIN 2.1 g/dL (3.5-5.0); ALBUMIN/GLOBULIN RATIO 0.8 (0.8-2.0); ALKALINE PHOSPHATASE 95 IU/L (40-150); ANION GAP 20.7 mmol/L (8-16); BLOOD UREA NITROGEN 40 mg/dL (7-26); BUN/CREATININE RATIO 12 (6-25); CALCIUM 8.6 mg/dL (8.4-10.2); CARBON DIOXIDE 18 mmol/L (22-29); CHLORIDE 94 mmol/L (98-107); CREATININE, SERUM 3.22 mg/dL (0.57-1.11); EST GLOMERULAR FILTRATION RATE 14 ML/MIN (60-); GLUCOSE 125 mg/dL (74-118); MAGNESIUM 1.3 MG/DL (1.3-2.1); POTASSIUM 3.7 mmol/L (3.5-5.1); SODIUM 129 mmol/L (136-145)
[2019-01-17 06:32] LABS: ALANINE AMINOTRANSFERASE < 6 IU/L (0-55)
[2019-01-17] MEDS: SUCRALFATE 1 GM/10 ML SUSP PO SCH ×2 (07:49→17:55)
[2019-01-17] MEDS: PANTOPRAZOLE SOD 40 MG TABEC PO SCH ×2 (07:49→17:55)
[2019-01-17] MEDS: INSULIN REGULAR, HUMAN 100 UNIT/1 ML 3ML VIAL SQ SCH ×4 (07:59→21:00)
[2019-01-17 08:02] LABS: BAND NEUTROPHILS % (MANUAL) 4 %; LYMPHOCYTES % (MANUAL) 5 % (19-48); MONOCYTES % (MANUAL) 7 % (3.4-9.0); NEUTROPHILS % (MANUAL) 84 % (40-74); PLATELET ESTIMATE ADEQUATE; PLATELET MORPHOLOGY COMMENT NORMAL; RBC MORPHOLOGY COMMENT NORMAL
[2019-01-17] MEDS: LIDOCAINE 5% PATCH TP SCH (09:00)
[2019-01-17] MEDS: LOSARTAN POTASSIUM 100 MG TAB PO SCH (11:14)
[2019-01-17] MEDS: CHOLECALCIFEROL 1,000 UNIT TAB PO SCH (11:15)
[2019-01-17] MEDS: CARVEDILOL 12.5 MG TAB PO SCH ×2 (11:15→17:56)
--- NOTE | 2019-01-17 11:51 | Progress Note ---
DATE: 01/17/2019 Cardiology Progress Note SUBJECTIVE: The patient reports nausea and vomiting and also some abdominal pain that has been ongoing. Denies any chest pain. Does endorse some shortness of breath. OBJECTIVE: VITAL SIGNS: Temperature 96.9, pulse 74, respiratory rate 18, blood pressure 144/59, and oxygen saturation 99% on room air. GENERAL: Alert, oriented x3. Resting comfortably in bed. Does not appear to be in any acute distress at this time. NECK: Supple. No JVD noted. CARDIOVASCULAR: Regular rate and rhythm. Diastolic murmur present, 08/20. LUNGS: Diminished breath sounds in anterior lower lobes, otherwise clear to auscultation. ABDOMEN: Tender to palpation especially on the left upper quadrant. Hypoactive bowel sounds. CARDIOVASCULAR MEDICATIONS: Coreg 25 mg p.o. b.i.d., simvastatin 40 mg p.o. at bedtime, losartan 100 mg p.o. daily, clonidine 0.2 mg q.4 hours p.r.n. for hypertension, hydralazine 10 mg q.4 hours p.r.n., labetalol 20 mg q.4 hours p.r.n. LABORATORY DATA: WBCs 35.61, hemoglobin hematocrit 35.1, and platelets 396. Sodium 129, potassium 3.7, BUN 40, and creatinine 3.22. IMAGING DATA: Abdominal CT scan from yesterday with a distended gallbladder, diffuse colon wall thickening suggestive of colitis and stable tiny bibasilar pulmonary nodule. TELEMETRY: Normal sinus rhythm. ASSESSMENT: 1. Hypertension. 2. Orthostatic hypotension. 3. Syncope. 4. Dyslipidemia. 5. Frequent falls. 6. Colitis. 7. Acute renal insufficiency. RECOMMENDATIONS: 1. Consider Nephrology consult. Continue the above-listed cardiac medication. Continue to monitor on telemetry. Antimicrobial therapy per primary team and GI. Continue PPI therapy. We will continue to follow this patient very closely. Dictated by Estrella Gonzalez NP MD MORE MoraV/SENG /[id number]
[2019-01-17] MEDS: HYDRALAZINE HCL 20 MG/ML VIAL IV PRN ×2 (14:35→21:35)
[2019-01-17] MEDS: SODIUM CHLORIDE FLUSH 10 ML SYR INJ PRN (14:35)
[2019-01-17] MEDS ORDERED: ACETAMINOPHEN 325 MG TAB PO PRN (17:45)
[2019-01-17] MEDS ORDERED: SODIUM CHLORIDE 0.9% 500ML 500 ML IV ONE (18:00)
[2019-01-17] MEDS ORDERED: ALBUMIN 5% 0.05 GM/ML BTL IV ONE (18:30)
--- NOTE | 2019-01-17 19:18 | Consultation ---
DATE OF CONSULTATION: 01/17/2019 REASON FOR CONSULTATION: Acute kidney injury. HISTORY OF PRESENT ILLNESS: Ms. Yunior Green is a pleasant 83-year-old female, who came in with several weeks of intermittent diarrhea. Also complains of weakness. She lives at home, walks with a walker. Has history of CKD, has not been compliant to follow up with Nephrology. She has nausea, denies vomiting. Has some abdominal discomfort, mostly left flank. Has been followed up by Dr. Martino. Recent colonoscopy shows polyps and had biopsies done, results are not available. Here, workup included a CT scan without contrast, shows markedly atrophic left kidney, no renal calculus, distended gallbladder with gallbladder wall thickening, diffuse colon thickening suggestive of colitis, stable tiny bibasilar pulmonary nodules. ALLERGIES: TO PENICILLIN AND MORPHINE. CURRENT MEDICATIONS: The patient is on vancomycin p.o. She is seen by GI. She is also on simvastatin 40 mg at bedtime. She is on pantoprazole 40 mg daily. She is on Cozaar 100 mg daily. She is on levothyroxine 100 mcg p.o. daily. She is on Lidoderm patch. She is also on clonidine p.r.n., carvedilol 25 mg p.o. b.i.d., vitamin D3 2000 units daily, normal saline at 75 mL an hour, Flagyl 500 mg IV q.8 h. Was on Levaquin, has been stopped. SOCIAL HISTORY: The patient does not smoke or drink. FAMILY HISTORY: Significant for hypertension. LABORATORY TESTS: Reviewed. The patient had a baseline serum creatinine of around 0.83 in December 2018. PHYSICAL EXAMINATION: GENERAL: Awake, alert, lying supine, in no apparent distress. VITAL SIGNS: Blood pressure of 170/70, pulse rate 77, afebrile, respiratory rate 17. HEAD AND NECK: Cornea clear. Oral mucosa moist. Neck veins flat. LUNGS: Relatively clear. HEART: S1, S2 audible. ABDOMEN: Soft, nontender. Mild tenderness noted over left flank area. EXTREMITIES: Lower extremity, no edema. IMPRESSION AND PLAN: Acute kidney injury, solitary functioning kidney, atrophic left kidney. Has evidence of possible cholecystitis and colitis, most likely Clostridium difficile, significant diarrhea. Plan to give another 500 mL normal saline bolus. Has underlying distal RTA. We will give IV albumin and discontinue existing IV fluid. She appears clinically dry. We will start D5 with 3 amps of bicarb. The acidosis is likely due to diarrhea. Discussed with bedside RN. Discussed with the patient. Please see orders. MD OLINDA Gambino/SENG /[id number]
--- NOTE | 2019-01-17 19:30 | NUR ---
Handoff report to oncoming nurse, made aware to call Dr. Bustamante's cell with morning's labs. Nurse understanding.
--- NOTE | 2019-01-17 20:00 | NUR ---
Received change of shift report from AM nurse. Walking rounds done.
--- NOTE | 2019-01-17 20:31 | NUR ---
Patient in bed with no noted pain or discomfort. Family at bedside. IV intact. Continue monitor.
[2019-01-17] MEDS: SIMVASTATIN 40 MG TAB PO SCH (21:00)
--- NOTE | 2019-01-17 21:10 | NUR ---
Completed bedside report with nurse. Pt alert and orient to name. Lying in bed HOB 30 degrees. Pt denies pain at this time. Call avendano within reach. Will continue to monitor.
--- NOTE | 2019-01-17 21:31 | NUR ---
Report given to in coming nurse.
[2019-01-17] MEDS ORDERED: DEXTROSE 5% 1,000 ML IV ONE (22:12)
[2019-01-17] MEDS ORDERED: SODIUM BICARBONATE 8.4% SYRING 50 ML ONE (22:15)
[2019-01-17] MEDS: SODIUM BICARBONATE 8.4% SYRING 150 ML in DEXTROSE 5% 1,000 ML IV SCH (22:34)
[2019-01-18] VITALS (7 sets, daily range): BP systolic 145–168; BP diastolic 56–75
[2019-01-18] MEDS: ONDANSETRON HCL 4 MG ORAL DISINTEGRATING TAB PO PRN ×2 (04:05→08:38)
[2019-01-18] MEDS: METRONIDAZOLE 500MG/NS 100ML 100 ML IV SCH ×3 (05:12→21:28)
[2019-01-18] MEDS: LEVOTHYROXINE SODIUM 75 MCG TAB PO SCH (05:12)
[2019-01-18] MEDS: VANCOMYCIN 250MG/5ML ORAL SOLN PO SCH ×4 (05:38→17:04)
[2019-01-18] MEDS: SODIUM BICARBONATE 8.4% SYRING 150 ML in DEXTROSE 5% 1,000 ML IV SCH (06:00)
[2019-01-18 07:18] LABS: BASOPHILS # (AUTO) 0.1 (0.0-0.1); BASOPHILS % 0.3 % (0.0-1.0); HEMATOCRIT 35.6 % (34.2-44.1); HEMOGLOBIN 12.4 g/dL (12.0-16.0); LYMPHOCYTES # (AUTO) 1.4 (1.0-3.2); LYMPHOCYTES % 4.7 % (18.0-39.1); MEAN CORPUSCULAR HEMOGLOBIN 28.4 pg (28-32); MEAN CORPUSCULAR HGB CONC 34.8 g/dL (31-35); MEAN CORPUSCULAR VOLUME 81.7 fL (81-99); MONOCYTES # (AUTO) 2.2 (0.2-0.8); MONOCYTES % 7.1 % (4.4-11.3); NEUTROPHILS # (AUTO) 26.5 (2.1-6.9); NEUTROPHILS % 87.1 % (38.7-80.0); PLATELET COUNT 427 x10e3/uL (140-360); RED BLOOD COUNT 4.36 x10e6/uL (3.6-5.1); RED CELL DISTRIBUTION WIDTH 13.9 % (11.7-14.4)
[2019-01-18 07:40] LABS: ALBUMIN 1.9 g/dL (3.5-5.0); ALBUMIN/GLOBULIN RATIO 0.7 (0.8-2.0); ALKALINE PHOSPHATASE 80 IU/L (40-150); ANION GAP 16.4 mmol/L (8-16); BLOOD UREA NITROGEN 43 mg/dL (7-26); BUN/CREATININE RATIO 11 (6-25); CARBON DIOXIDE 18 mmol/L (22-29); CHLORIDE 94 mmol/L (98-107); CREATININE, SERUM 3.76 mg/dL (0.57-1.11); EST GLOMERULAR FILTRATION RATE 12 ML/MIN (60-); GLUCOSE 197 mg/dL (74-118); POTASSIUM 3.4 mmol/L (3.5-5.1); SODIUM 125 mmol/L (136-145)
[2019-01-18 07:45] LABS: ALANINE AMINOTRANSFERASE < 6 IU/L (0-55); MAGNESIUM 1.1 MG/DL (1.3-2.1)
[2019-01-18] MEDS ORDERED: MAGNESIUM SULFATE 2GM/50ML 50 ML IV ONE (08:00)
--- NOTE | 2019-01-18 08:05 | Progress Note ---
DATE: 01/18/2019 Cardiology Progress Note SUBJECTIVE: The patient complains of abdominal pain and nausea and vomiting. Denies any chest pain. Does endorse ongoing issues with shortness of breath. OBJECTIVE: VITAL SIGNS: Temperature 95.7, pulse 90, respiratory rate 22, blood pressure 168/71, and oxygen saturation 97% on room air. GENERAL: Alert and oriented x3, resting comfortably in bed, does not appear to be in any acute distress. LUNGS: Diminished breath sounds in posterior lower lobes, otherwise clear to auscultation. NECK: Supple. No JVD noted. CARDIOVASCULAR: Regular rate and rhythm. Diastolic murmur present /. ABDOMEN: Tender to palpation especially in the left upper quadrant. Hypoactive bowel sounds. EXTREMITIES: Lower extremity, no edema. CARDIOVASCULAR MEDICATIONS: Hydralazine 10 mg IV q.4 hours p.r.n., simvastatin 40 mg p.o. at bedtime, Coreg 25 mg p.o. b.i.d., clonidine 0.2 mg q.4 hours p.r.n. for hypertension. LABORATORY DATA: WBC 30.37, hemoglobin 12.4, platelets 427. TELEMETRY: Sinus rhythm with infrequent PVCs. ASSESSMENT: 1. Hypertension. 2. Syncope. 3. Dyslipidemia. 4. Frequent falls. 5. Colitis. 6. Acute renal insufficiency. RECOMMENDATION: Medication requested for better BP control. Continue the rest of the above list of cardiac medication. GI managing, continue PPI for now. Continue antimicrobial therapy per primary team and GI. We will continue to monitor this patient closely, maintain on telemetry. Dictated by Estrella Gonzalez NP MD IMTIAZ Mora/SENG /[id number]
[2019-01-18] MEDS: SUCRALFATE 1 GM/10 ML SUSP PO SCH ×2 (08:07→16:19)
[2019-01-18] MEDS: PANTOPRAZOLE SOD 40 MG TABEC PO SCH ×2 (08:07→16:19)
[2019-01-18] MEDS: HYDRALAZINE HCL 25 MG TAB PO SCH ×3 (08:08→21:28)
[2019-01-18] MEDS: CARVEDILOL 12.5 MG TAB PO SCH ×2 (08:13→16:20)
[2019-01-18] MEDS: CHOLECALCIFEROL 1,000 UNIT TAB PO SCH (08:13)
[2019-01-18] MEDS: LIDOCAINE 5% PATCH TP SCH (08:13)
[2019-01-18] MEDS: INSULIN REGULAR, HUMAN 100 UNIT/1 ML 3ML VIAL SQ SCH ×4 (08:15→21:00)
[2019-01-18] MEDS: SODIUM CHLORIDE 1 GM TAB PO SCH ×3 (08:24→21:00)
[2019-01-18 09:04] LABS: BAND NEUTROPHILS % (MANUAL) 8 %; LYMPHOCYTES % (MANUAL) 6 % (19-48); MONOCYTES % (MANUAL) 5 % (3.4-9.0); NEUTROPHILS % (MANUAL) 81 % (40-74)
[2019-01-18 09:05] LABS: LARGE PLATELETS FEW; PLATELET ESTIMATE SLIGHTLY INCREASED; PLATELET MORPHOLOGY COMMENT FEW LARGE
[2019-01-18 09:06] LABS: ACANTHOCYTES FEW; BURR CELLS SLIGHT; RBC MORPHOLOGY COMMENT ABNORMAL; SCHISTOCYTES FEW
[2019-01-18] MEDS: POTASSIUM CHLORIDE 20MEQ/100ML 100 ML IV ONE ×2 (10:00→14:34)
[2019-01-18] MEDS ORDERED: LORAZEPAM INJ 2 MG/ML VIAL IV PRN (11:30)
[2019-01-18] MEDS ORDERED: LORAZEPAM INJ 2 MG/ML VIAL IV ONE (12:00)
[2019-01-18] MEDS ORDERED: POTASSIUM CHLORIDE 20MEQ/100ML 100 ML IV ONE (12:00)
[2019-01-18] MEDS: ONDANSETRON HCL INJ 2MG/ML 2ML 2 MG/ML VIAL IV PRN ×2 (14:45→21:34)
[2019-01-18] MEDS ORDERED: BISACODYL 5 MG TAB EC PO ONE ×3 (15:00→20:00)
[2019-01-18] MEDS: SODIUM CHLORIDE FLUSH 10 ML SYR INJ PRN (17:15)
[2019-01-18 17:18] LABS: BILIRUBIN,URINE MODERATE (NEGATIVE); CLARITY,URINE CLOUDY (CLEAR); COLOR,URINE BROWN (YELLOW); KETONES,URINE TRACE (NEGATIVE); LEUKOCYTE ESTERASE ,URINE TRACE (NEGATIVE); NITRITE,URINE NEGATIVE (NEGATIVE); PROTEIN,URINE DIPSTICK 1+ (NEGATIVE); URINE UROBILINOGEN 0.2 mg/dL (0.2 - 1)
[2019-01-18 17:41] LABS: AMORPHOUS SEDIMENT,URINE FEW (FEW); BACTERIA,URINE MODERATE /HPF; EPITHELIAL CELLS,URINE FEW /LPF; RBC,URINE 0-5 /HPF (0-5)
--- NOTE | 2019-01-18 18:30 | NUR ---
DR. Zain HOFFMANN COVERING FOR DAVID HOFFMANN, CAME IN TO SEE PATIENT, NOTIFIED DR. Zain HOFFMANN PATIENT'S HAS SEEN Fina HOFFMANN, AND WOULD LIKE HIM TO SEE HER. PER DR. HOFFMANN HE WILL NOTIFY Fina HOFFMANN, MOST LIKELY WILL SEE HER UNTIL PATIENT IS SEEN BY LEISA, FOR SIGMOIDOSCOPY OR COLONOSCOPY.
[2019-01-18] MEDS: SIMVASTATIN 40 MG TAB PO SCH (21:00)
[2019-01-19] VITALS (8 sets, daily range): BP systolic 122–178; BP diastolic 55–74
[2019-01-19] MEDS: VANCOMYCIN 250MG/5ML ORAL SOLN PO SCH ×4 (05:44→17:22)
[2019-01-19] MEDS: LEVOTHYROXINE SODIUM 75 MCG TAB PO SCH (05:44)
[2019-01-19] MEDS: METRONIDAZOLE 500MG/NS 100ML 100 ML IV SCH ×3 (05:44→22:15)
[2019-01-19] MEDS: HYDRALAZINE HCL 20 MG/ML VIAL IV PRN ×2 (05:44→11:57)
[2019-01-19 05:47] LABS: BASOPHILS # (AUTO) 0.1 (0.0-0.1); BASOPHILS % 0.4 % (0.0-1.0); HEMATOCRIT 34.8 % (34.2-44.1); HEMOGLOBIN 12.3 g/dL (12.0-16.0); LYMPHOCYTES % 6.3 % (18.0-39.1); MEAN CORPUSCULAR HEMOGLOBIN 28.5 pg (28-32); MEAN CORPUSCULAR HGB CONC 35.3 g/dL (31-35); MEAN CORPUSCULAR VOLUME 80.7 fL (81-99); MONOCYTES # (AUTO) 1.9 (0.2-0.8); MONOCYTES % 5.9 % (4.4-11.3); NEUTROPHILS # (AUTO) 27.3 (2.1-6.9); NEUTROPHILS % 85.7 % (38.7-80.0); PLATELET COUNT 462 x10e3/uL (140-360); RED BLOOD COUNT 4.31 x10e6/uL (3.6-5.1); RED CELL DISTRIBUTION WIDTH 13.9 % (11.7-14.4)
[2019-01-19 06:10] LABS: ALBUMIN 1.9 g/dL (3.5-5.0); ALBUMIN/GLOBULIN RATIO 0.7 (0.8-2.0); ANION GAP 19.4 mmol/L (8-16); CALCIUM 8.3 mg/dL (8.4-10.2); CREATININE, SERUM 4.38 mg/dL (0.57-1.11); POTASSIUM 3.4 mmol/L (3.5-5.1)
--- NOTE | 2019-01-19 07:00 | NUR ---
PATIENT IS ALERT AND IN STABLE CONDITION WITH NO S/S OF RESPIRATORY DISTRESS. PATIENT C/O ABD PAIN 10/22. PATIENT NPO FOR PROCEDURE TODAY. DIAPER APPLIED. BED ALARM ON. CALL LIGHT IS WITHIN REACH, PATIENT INSTRUCTED TO CALL FOR ASSISTANCE NEEDED.
[2019-01-19] MEDS: SUCRALFATE 1 GM/10 ML SUSP PO SCH ×2 (07:30→15:30)
[2019-01-19] MEDS ORDERED: POTASSIUM CHLORIDE 20 MEQ TAB CR PO ONE (07:30)
[2019-01-19] MEDS: INSULIN REGULAR, HUMAN 100 UNIT/1 ML 3ML VIAL SQ SCH ×4 (07:30→21:40)
[2019-01-19] MEDS: LIDOCAINE 5% PATCH TP SCH (08:09)
--- NOTE | 2019-01-19 08:19 | NUR ---
PATIENT OFF THE UNIT FOR PROCEDURE WITH DR. DE LA FUENTE. PATIENT IN STABLE CONDITION WITH NO S/S OF RESPIRATORY DISTRESS. NO PAIN VOICED. DIAPER APPLIED.
[2019-01-19 09:00] LABS: LYMPHOCYTES % (MANUAL) 7 % (19-48); MONOCYTES % (MANUAL) 6 % (3.4-9.0); NEUTROPHILS % (MANUAL) 87 % (40-74); PLATELET ESTIMATE ADEQUATE; PLATELET MORPHOLOGY COMMENT NORMAL; RBC MORPHOLOGY COMMENT NORMAL
[2019-01-19] MEDS ORDERED: ONDANSETRON HCL INJ 2MG/ML 2ML 2 MG/ML VIAL ONE (09:36)
[2019-01-19] MEDS ORDERED: METOCLOPRAMIDE HCL 10 MG/2ML VIAL ONE (10:00)
[2019-01-19] MEDS ORDERED: PROMETHAZINE HCL (IM) 25 MG/ML VIAL ONE (10:00)
--- NOTE | 2019-01-19 10:19 | NUR ---
PATIENT BACK ON THE UNIT PER BED- PATIENT IN STABLE CONDITION WITH NO S/S OF RESPIRATORY DISTRESS. NO PAIN VOICED. CALL LIGHT WITHIN REACH OF THE PATIENT. BED ALARM ON.
[2019-01-19] MEDS: PANTOPRAZOLE SOD 40 MG TABEC PO SCH ×2 (10:22→15:30)
[2019-01-19] MEDS: HYDRALAZINE HCL 25 MG TAB PO SCH ×3 (10:23→22:15)
[2019-01-19] MEDS: SODIUM CHLORIDE 1 GM TAB PO SCH (10:23)
[2019-01-19] MEDS: CARVEDILOL 12.5 MG TAB PO SCH ×2 (10:23→17:22)
[2019-01-19] MEDS: CHOLECALCIFEROL 1,000 UNIT TAB PO SCH (10:23)
[2019-01-19] MEDS: SODIUM CHLORIDE FLUSH 10 ML SYR INJ PRN (10:45)
--- NOTE | 2019-01-19 11:30 | Progress Note ---
DATE: 01/19/2019 Cardiology Progress Note SUBJECTIVE: No major events overnight. OBJECTIVE: VITAL SIGNS: Temperature afebrile, pulse 78, respiratory rate 20, blood pressure 129/73, and 96% on room air. GENERAL: An elderly female, in no acute distress. CARDIOVASCULAR: Regular rate and rhythm. No murmurs, rubs, or gallops. LUNGS: Clear to auscultation bilaterally. ABDOMEN: Soft, nontender, nondistended. NEURO AND PSYCH: Alert and oriented to person, place, and time. Normal affect. INPATIENT MEDICATIONS: Reviewed. LABORATORY DATA: Reviewed. TELEMETRY DATA: Reviewed. ASSESSMENT AND PLAN: 1. Hypertension. 2. Syncope. 3. Dyslipidemia. 4. Frequent falls. 5. Colitis. 6. Acute renal insufficiency. RECOMMENDATIONS: Blood pressure is now better controlled. We will continue to monitor and titrate medications as needed. Treatment of colitis per GI and primary team. Thank you for this consult. We will continue to follow. MD JERAMIE Ferrera/SENG /[id number]
[2019-01-19] MEDS ORDERED: MESALAMINE 400 MG CAP PO SCH (15:00)
--- NOTE | 2019-01-19 15:15 | NUR ---
18F [facility]USU PLACED; URINE SAMPLE SENT OT LAB FOR UA. 24HR URINE COLLECTION STARTED AT 1505
[2019-01-19] MEDS: SODIUM CHLORIDE 0.9% 1000ML 1,000 ML IV SCH (15:29)
[2019-01-19 15:30] LABS: BILIRUBIN,URINE MODERATE (NEGATIVE); CLARITY,URINE CLOUDY (CLEAR); COLOR,URINE BROWN (YELLOW); KETONES,URINE TRACE (NEGATIVE); LEUKOCYTE ESTERASE ,URINE TRACE (NEGATIVE); NITRITE,URINE POSITIVE (NEGATIVE); PROTEIN,URINE DIPSTICK TRACE (NEGATIVE); URINE UROBILINOGEN 0.2 mg/dL (0.2 - 1)
[2019-01-19 15:42] LABS: BACTERIA,URINE MODERATE /HPF; EPITHELIAL CELLS,URINE MODERATE /LPF; WBC,URINE (MAN) 0-5 /HPF (0-5)
[2019-01-19] MEDS: SODIUM BICARBONATE 650 MG TAB PO SCH (17:25)
[2019-01-19] MEDS ORDERED: PROPOFOL IV EMULSION 10 MG/ML 20 ML VIAL ONE (18:11)
[2019-01-19] MEDS ORDERED: LIDOCAINE HCL 2% LOCAL INJ 5 ML SDV VIAL INJ ONE (18:11)
--- NOTE | 2019-01-19 18:57 | NUR ---
PATIENT RESTING IN BED- IN STABLE CONDITION WITH NO S/S OF RESPIRATORY DISTRESS. NO PAIN VOICED. [facility] INTACT AND DRAINAGE NOTED (24 HOUR URINE COLLECTION). IV FLUIDS INFUSING. TELEMETRY APPLIED. SONS PRESENT IN ROOM. CALL LIGHT IS WITHIN REACH, PATIENT INSTRUCTED TO CALL FOR ASSISTANCE NEEDED. BEDSIDE REPORT GIVEN TO ONCOMING NURSE.
[2019-01-19] MEDS: SIMVASTATIN 40 MG TAB PO SCH (21:00)
[2019-01-20] VITALS (10 sets, daily range): BP systolic 129–192; BP diastolic 54–74
[2019-01-20] MEDS: METRONIDAZOLE 500MG/NS 100ML 100 ML IV SCH ×3 (05:39→21:36)
[2019-01-20] MEDS ORDERED: ZOLPIDEM TARTRATE 5 MG TAB PO PRN (05:45)
[2019-01-20] MEDS: LEVOTHYROXINE SODIUM 75 MCG TAB PO SCH (05:49)
[2019-01-20] MEDS: VANCOMYCIN 250MG/5ML ORAL SOLN PO SCH ×4 (05:49→17:56)
[2019-01-20 06:26] LABS: HEMOGLOBIN 11.5 g/dL (12.0-16.0); MEAN CORPUSCULAR HEMOGLOBIN 28.8 pg (28-32); MEAN CORPUSCULAR HGB CONC 33.8 g/dL (31-35); PLATELET COUNT 367 x10e3/uL (140-360); RED CELL DISTRIBUTION WIDTH 14.2 % (11.7-14.4)
[2019-01-20 07:06] LABS: ALBUMIN 1.5 g/dL (3.5-5.0); ALBUMIN/GLOBULIN RATIO 0.6 (0.8-2.0); ANION GAP 16.4 mmol/L (8-16); CREATININE, SERUM 3.58 mg/dL (0.57-1.11); POTASSIUM 3.4 mmol/L (3.5-5.1)
--- NOTE | 2019-01-20 07:10 | NUR ---
PATIENT IS AWAKE, ALERT, AND IN STABLE CONDITION WITH NO S/S OF RESPIRATORY DISTRESS. PATIENT DENIES PAIN. TELEMETRY APPLIED. [facility] INTACT AND DRAINING. BED ALARM ON. CALL LIGHT IS WITHIN REACH, PATIENT INSTRUCTED TO CALL FOR ASSISTANCE NEEDED.
[2019-01-20 07:24] LABS: CALCIUM 6.7 mg/dL (8.4-10.2)
[2019-01-20] MEDS: INSULIN REGULAR, HUMAN 100 UNIT/1 ML 3ML VIAL SQ SCH ×4 (07:30→21:50)
[2019-01-20] MEDS: SUCRALFATE 1 GM/10 ML SUSP PO SCH ×2 (07:59→15:40)
[2019-01-20] MEDS: PANTOPRAZOLE SOD 40 MG TABEC PO SCH ×2 (08:00→15:40)
[2019-01-20] MEDS: LIDOCAINE 5% PATCH TP SCH (08:00)
[2019-01-20] MEDS: CHOLECALCIFEROL 1,000 UNIT TAB PO SCH (08:00)
[2019-01-20] MEDS: CARVEDILOL 12.5 MG TAB PO SCH ×2 (08:00→17:54)
[2019-01-20] MEDS: SODIUM BICARBONATE 650 MG TAB PO SCH ×3 (08:00→21:35)
[2019-01-20] MEDS: HYDRALAZINE HCL 25 MG TAB PO SCH ×3 (08:01→21:35)
--- NOTE | 2019-01-20 09:08 | NUR ---
CALL PLACED OUT TO DR. RIGGINS ORDERED BY DR. SOLOMON REGARDING CRITICAL CALCIUM LEVEL OF 6.7- AWAITING CALLBACK.
--- NOTE | 2019-01-20 09:16 | NUR ---
RECEIVED CALLBACK FROM DR. RIGGINS- ORDERS RECEIVED
[2019-01-20] MEDS ORDERED: POTASSIUM CHLORIDE 10MEQ EA PO ONE (10:00)
[2019-01-20] MEDS ORDERED: CALCIUM GLUCONATE 10% INJ 4.65 MEQ in SODIUM CHLORIDE 0.9% 50ML 50 ML IV ONE (10:00)
--- NOTE | 2019-01-20 10:23 | NUR ---
[facility] EVAL TODAY CHOICE LETTER SIGNED BY PT FOR [facility] PT ASKED THAT I CALL HER SON AND EXPLAIN LTAC TO HIM CALLED SON ATA AGUILAR AT [phone]; NO ANSWER, LEFT VOICE MAIL RAULITO WITH [employer] NOTIFIED OF CONSULT CALLED TO ASK DR SOLOMON FOR DC ; AWAIT ANSWER
[2019-01-20] MEDS: HYDRALAZINE HCL 20 MG/ML VIAL IV PRN ×2 (11:41→15:55)
[2019-01-20] MEDS: SODIUM CHLORIDE 0.9% 1000ML 1,000 ML IV SCH (13:15)
--- NOTE | 2019-01-20 14:07 | Progress Note ---
DATE: 01/20/2019 Cardiology Progress Note SUBJECTIVE: The patient denies chest pain or shortness of breath. OBJECTIVE: VITAL SIGNS: Temperature 97 degrees, pulse 75, respiratory rate 17, blood pressure 181/70, and oxygen 95% on room air. GENERAL: Awake, alert, in no acute distress. LUNGS: Clear to auscultation bilaterally. No wheezes or crackles. CARDIOVASCULAR: Normal rate. Regular rhythm. No murmur. Normal S1, S2. ABDOMEN: Soft, nontender. EXTREMITIES: No edema. CARDIAC MEDICATIONS: Hydralazine 50 mg p.o. t.i.d., carvedilol 25 mg p.o. b.i.d., and simvastatin 40 mg p.o. at bedtime. LABORATORY DATA: WBC 27.09, hemoglobin 11.5, hematocrit 34, and platelets 367. Sodium 132, potassium 3.4, chloride 103, CO2 is 17, BUN 39, and creatinine 3.58. TELEMETRY: Normal sinus rhythm. IMPRESSION: 1. Hypertension. 2. Syncope. 3. Dyslipidemia. 4. Frequent falls. 5. Colitis. 6. Acute renal insufficiency. RECOMMENDATIONS: The patient's blood pressure remains labile. Add nifedipine. Monitor the patient on telemetry while admitted. Treatment of colitis per GI. Further evaluation of acute kidney injury per Nephrology. Thank you for this consult. We will continue to follow up. Sasha Reynoso MD ABS/MODL /[id number]
[2019-01-20] MEDS ORDERED: ALBUMIN 5% 0.05 GM/ML BTL IV ONE (15:30)
[2019-01-20] MEDS ORDERED: ALBUMIN 5% 250ML 500 ML IV ONE (16:00)
[2019-01-20 18:23] LABS: CREATININE,URINE RANDOM 167.5 mg/dL (47-110)
--- NOTE | 2019-01-20 19:11 | NUR ---
PATIENT IS IN STABLE CONDITION WITH NO S/S OF RESPIRATORY DISTRESS-NO PAIN VOICED. IV ALBUMIN INFUSING. TELEMETRY APPLIED. [facility] INTACT AND DRAINING. FAMILY MEMBERS PRESENT IN ROOM. CALL LIGHT IS WITHIN REACH, PATIENT INSTRUCTED TO CALL FOR ASSISTANCE NEEDED. BEDSIDE REPORT GIVEN TO ONCOMING NURSE.
[2019-01-20] MEDS: SIMVASTATIN 40 MG TAB PO SCH (21:00)
[2019-01-21] VITALS (8 sets, daily range): BP systolic 153–194; BP diastolic 60–81
[2019-01-21] MEDS: VANCOMYCIN 250MG/5ML ORAL SOLN PO SCH ×4 (00:58→19:26)
[2019-01-21] MEDS: CLONIDINE HCL 0.2 MG TAB PO PRN (00:58)
[2019-01-21] MEDS: LEVOTHYROXINE SODIUM 75 MCG TAB PO SCH (05:36)
[2019-01-21] MEDS: METRONIDAZOLE 500MG/NS 100ML 100 ML IV SCH ×2 (05:36→14:30)
[2019-01-21] MEDS: SODIUM CHLORIDE 0.9% 1000ML 1,000 ML IV SCH (05:37)
[2019-01-21 06:04] LABS: EOSINOPHILS % 0.2 % (0.0-6.0); HEMATOCRIT 31.1 % (34.2-44.1); HEMOGLOBIN 10.4 g/dL (12.0-16.0); LYMPHOCYTES # (AUTO) 1.9 (1.0-3.2); MEAN CORPUSCULAR HEMOGLOBIN 28.6 pg (28-32); MEAN CORPUSCULAR HGB CONC 33.4 g/dL (31-35); MEAN CORPUSCULAR VOLUME 85.4 fL (81-99); MONOCYTES # (AUTO) 1.4 (0.2-0.8); MONOCYTES % 6.9 % (4.4-11.3); NEUTROPHILS # (AUTO) 15.7 (2.1-6.9); NEUTROPHILS % 75.7 % (38.7-80.0); PLATELET COUNT 334 x10e3/uL (140-360); RED BLOOD COUNT 3.64 x10e6/uL (3.6-5.1); RED CELL DISTRIBUTION WIDTH 14.7 % (11.7-14.4)
[2019-01-21 07:27] LABS: ALBUMIN 1.4 g/dL (3.5-5.0); ALBUMIN/GLOBULIN RATIO 0.7 (0.8-2.0); ALKALINE PHOSPHATASE 67 IU/L (40-150); ANION GAP 11.7 mmol/L (8-16); BLOOD UREA NITROGEN 35 mg/dL (7-26); BUN/CREATININE RATIO 14 (6-25); CARBON DIOXIDE 18 mmol/L (22-29); CHLORIDE 106 mmol/L (98-107); CREATININE, SERUM 2.52 mg/dL (0.57-1.11); EST GLOMERULAR FILTRATION RATE 18 ML/MIN (60-); GLUCOSE 119 mg/dL (74-118); SODIUM 133 mmol/L (136-145)
[2019-01-21 07:28] LABS: ALANINE AMINOTRANSFERASE < 6 IU/L (0-55)
[2019-01-21 07:30] LABS: CALCIUM 6.6 mg/dL (8.4-10.2); POTASSIUM 2.7 mmol/L (3.5-5.1)
--- NOTE | 2019-01-21 07:30 | NUR ---
PT IN BED SLEEPING NO DISTRESS NTOED,NO S/S DISCOMFORT
[2019-01-21] MEDS: SUCRALFATE 1 GM/10 ML SUSP PO SCH ×2 (08:00→16:56)
--- NOTE | 2019-01-21 08:00 | NUR ---
SPOKE WITH DR RIGGINS RE LABS ORDERS WRITTEN
[2019-01-21] MEDS: INSULIN REGULAR, HUMAN 100 UNIT/1 ML 3ML VIAL SQ SCH ×4 (08:30→20:51)
[2019-01-21] MEDS: LIDOCAINE 5% PATCH TP SCH (09:00)
[2019-01-21] MEDS ORDERED: NIFEDIPINE CR 30 MG TAB PO SCH (09:00)
[2019-01-21] MEDS: HYDRALAZINE HCL 25 MG TAB PO SCH ×3 (09:20→20:50)
[2019-01-21] MEDS: PANTOPRAZOLE SOD 40 MG TABEC PO SCH ×2 (09:20→16:56)
[2019-01-21] MEDS: CARVEDILOL 12.5 MG TAB PO SCH ×2 (09:20→17:00)
[2019-01-21] MEDS: SODIUM BICARBONATE 650 MG TAB PO SCH ×3 (09:21→20:50)
[2019-01-21] MEDS: CHOLECALCIFEROL 1,000 UNIT TAB PO SCH (09:21)
[2019-01-21] MEDS ORDERED: POTASSIUM CHLORIDE 20MEQ/100ML 200 ML IV ONE (10:00)
[2019-01-21 11:06] LABS: BAND NEUTROPHILS % (MANUAL) 1 %; LYMPHOCYTES % (MANUAL) 11 % (19-48); MONOCYTES % (MANUAL) 10 % (3.4-9.0); NEUTROPHILS % (MANUAL) 78 % (40-74); PLATELET ESTIMATE ADEQUATE; PLATELET MORPHOLOGY COMMENT NORMAL; RBC MORPHOLOGY COMMENT NORMAL
--- NOTE | 2019-01-21 11:30 | NUR ---
dr mejia here new orders written,request pt stay 1 more day for electrolytes labs tomorrow.spoke with dr de la torre stated ok for pt to stay.
--- NOTE | 2019-01-21 12:30 | NUR ---
called dr de la torre back according to family service caseworker pt needs to go today.dr de la torre stated ok for pt to go if ok with dr mejia.
[2019-01-21] MEDS ORDERED: MAGNESIUM SULF 1GRAM/DEXTROSE 300 ML IV ONE (13:00)
[2019-01-21] MEDS ORDERED: POTASSIUM CHLORIDE 20MEQ/100ML 100 ML IV ONE (13:00)
--- NOTE | 2019-01-21 13:00 | NUR ---
spoke with dr jackie silvestre for pt to transfer after mag riders and potassium riders given.
--- NOTE | 2019-01-21 13:53 | NUR ---
SPOKE WITH PT'S SON WHO IS AGREEABLE AND UNDERSTANDS LTAC ORDERS TO DC TODAY AWAIT ROOM ASSIGNMENT; PT ACCEPTED DR RIGGINS ROUNDED TODAY AND WANTS TO KEEP PT IN HOSPITAL 1 MORE DAY TO REPEAT LABS IN AM NURSE DEN[place] CALLED DR SOLOMON AND NOTIFIED HIM THAT DR RIGGINS WANTS TO KEEP PT IN HOSPITAL TILL TOMORROW DR SOLOMON CANCELLED DC D/W [facility] MANUEL RÍOS AND ESCALATED TO DR SMITH FOR RESOLUTION CM TO FOLLOW MOT ON FRONT OF PACKET COMPLETE
[2019-01-21] MEDS: MESALAMINE 400 MG CAP PO SCH ×2 (15:38→20:50)
--- NOTE | 2019-01-21 20:15 | Progress Note ---
DATE: 01/21/2019 Cardiology Progress Note SUBJECTIVE: The patient denies chest pain or shortness of breath. Nursing reports she has been accepted to [facility]. OBJECTIVE: VITAL SIGNS: Temperature 96.7 degrees, pulse 77, respiratory rate 18, blood pressure 157/81, oxygen saturation 97% on room air. GENERAL: Awake, alert, in no acute distress. LUNGS: Clear to auscultation bilaterally. No wheeze or crackles. CARDIOVASCULAR: Normal rate, regular rhythm. No murmur. Normal S1, S2. ABDOMEN: Soft, nontender. EXTREMITIES: No edema. CARDIAC MEDICATIONS: Carvedilol 25 mg p.o. b.i.d., hydralazine 50 mg p.o. t.i.d., nifedipine 30 mg p.o. daily, levothyroxine 100 mcg p.o. daily. LABORATORY DATA: WBC 20.74, hemoglobin 10.4, hematocrit 31.1, platelets 334. Sodium 132, potassium 2.7, chloride 106, CO2 18, BUN 35, and creatinine 2.52. TELEMETRY: Normal sinus rhythm. IMPRESSION: 1. Hypertension. 2. Syncope. 3. Dyslipidemia. 4. Frequent falls. 5. Colitis. 6. Acute renal insufficiency. RECOMMENDATIONS: The patient's blood pressure remains elevated, further increase nifedipine. Monitor patient on telemetry while admitted. Treatment of colitis per GI. Further evaluation of acute kidney injury per Nephrology. Thank you for this consult. We will continue to follow. Sasha Reynoso MD ABS/MODL /[id number]
[2019-01-21] MEDS: SIMVASTATIN 40 MG TAB PO SCH (20:50)
--- NOTE | 2019-01-21 21:00 | NUR ---
pt transferred via EMS to [facility], report given to RHYS Calvin, tele box #3 removed, no c/o pain or discomfort, resp even and unlabored
--- NOTE | 2019-01-22 08:23 | Discharge Summary ---
DISCHARGE DIAGNOSES: 1. Colitis, rule out . 2. Hypertension. 3. Orthostatic changes. 4. Diabetes. 5. Acute renal failure. 6. Hypomagnesium. 7. Anorexia. DISCHARGE DISPOSITION: The patient is transferred to LT[facility]. HISTORY OF PRESENT ILLNESS AND HOSPITAL COURSE: See hospital chart for full details. The patient is a lady, admitted with initially hypertensive urgency, unfortunately she was having significant orthostatic changes, where she dropped with increased symptoms of dizziness. The patient actually improved by discontinuing some of her blood pressure medicines that are attributable to orthostatic changes, where she had then less of a drop of orthostasis. I had a long talk with the son and the patient, they stated that will never be able to make her blood pressure fully perfect, when I start to try to improve the high numbers, we are going to have more of the low numbers, which is where she is more symptomatic from, so the patient will want to accept some higher numbers, but then while she was in the hospital, she started having significant left lower quadrant abdominal pain, where CT scan showed evidence of colitis. So, GI was consulted, who performed a colonoscopy that showed evidence of colitis, possibly Crohn disease, where biopsies are still pending. She has had a lot of trouble with anorexia secondary to the abdominal pain, but then unfortunately due to her lack of p.o. intake and water intake, the patient started showing signs of acute renal failure with electrolyte abnormalities, where Dr. Bustamante of Renal was consulted. The patient was placed on IV fluids, where she did start to make improvements in her numbers by the time of discharge, but was improving at the time of transfer, so hopefully will still continue to improve with IV fluids. The patient started to improve in her eating, but discussions were made with her as well as the sone that if she did not improve soon, then the PEG tube will probably be necessary. So, the patient was then transferred to LT[facility] for continuation of treatment for colitis, increasing p.o. intake, her acute renal failure, and electrolyte abnormalities. Please see hospital chart for full details. MD EDWARD Wilson/SENG /[id number]
[2019-01-22] MEDS ORDERED: NIFEDIPINE CR 30 MG TAB PO SCH (09:00)
== END 2019-01-21 22:31 | DRG 304 ==
LOC: ER 10:52 → ERHOLD 14:37 → MED/SURG3 15:39
PROVIDERS: ADMIT Internal Medicine; ATTEND Internal Medicine
PROC: 0DBN8ZX Excision of Sigmoid Colon, Via Natural or Artificial Opening Endoscopic, Diagnostic (ICD-10-PCS; principal; 2019-01-19 08:40)
DX: I16.0 Hypertensive urgency (principal); N17.0 Acute kidney failure with tubular necrosis; K50.918 Crohn's disease, unspecified, with other complication; E87.1 Hypo-osmolality and hyponatremia; N18.4 Chronic kidney disease, stage 4 (severe); E87.2 Acidosis; K52.9 Noninfective gastroenteritis and colitis, unspecified; E03.9 Hypothyroidism, unspecified; K21.9 Gastro-esophageal reflux disease without esophagitis; E78.5 Hyperlipidemia, unspecified; D72.829 Elevated white blood cell count, unspecified; K81.9 Cholecystitis, unspecified; I12.9 Hypertensive chronic kidney disease with stage 1 through stage 4 chronic kidney disease, or unspecified chronic kidney disease; E11.22 Type 2 diabetes mellitus with diabetic chronic kidney disease; Z79.4 Long term (current) use of insulin; K64.8 Other hemorrhoids; K27.9 Peptic ulcer, site unspecified, unspecified as acute or chronic, without hemorrhage or perforation; R91.8 Other nonspecific abnormal finding of lung field; I95.2 Hypotension due to drugs
CPT/HCPCS: 36415; 45330; 71046; 72072; 74176; 80053; 81001; 81003; 82270; 82575; 82948; 83605; 83735; 84100; 84443; 84484; 85007; 85025; 85027; 87040; 87045; 87086; 87493; 88305; 93005; 93306; 97139; 99284; J0360; J0610; J1817; J1885; J1956; J2001; J2060; J2405; J2550; J2765; J3475; J3480; J7030; J7040; J7050; J7070; P9045; Q0162